=== PATIENT | female | born 1935 | race Caucasian/White ===

== ENCOUNTER 2019-10-21 11:16 | Emergency (ER) | payer MEDICARE, SELFPAY ==
--- NOTE | ~2019-10-21 | CT_ITS ---
EXAMINATION: CTA chest abdomen pelvis EXAM DATE: 10/21/2019 14:34 INDICATION: Thoracolumbar pain. TECHNIQUE: Spiral CT angiogram of the chest, abdomen and pelvis was performed following intravenous i njection of 100 mL Omnipaque 350. Axial, coronal and sagittal images were reviewed. Maximum intensit y projection 3-D reconstructions of the aorta were created by the technologist on dedicated workstati on. Coronal maximum intensity pixel images of chest reviewed. The dose-length product (DLP) for thi s examination was 677.13 mGy-cm. The exposure was tailored according to patient size (auto mA exposu re control), and iterative reconstruction (ASIR) was used as additional dose reduction technique. Th ere is no prior study for comparison. FINDINGS: CHEST: There is no aortic dissection or aneurysm. There is mild to moderate abdominal aortic scattere d arterial sclerosis. No central pulmonary emboli. Mild emphysema. The lungs are clear. There is mi ld to moderate-sized pericardial effusion, increased in size compared to previous examination, fluid all located posteriorly. Tracheobronchial tree is patent. There is no mediastinal, hilar or axilla ry lymphadenopathy. There is no pneumothorax. Mild cardiomegaly. No evidence of coronary arteria l calcification. ABDOMEN PELVIS: There is hepatic steatosis without suspicious focal lesion identified. Spleen, adrena l glands, pancreas are unremarkable. There are cholecystectomy clips. Portal and splenic veins are patent. Kidneys enhance symmetrically. There is no hydronephrosis. There is a left renal cyst measu ring about 3 cm. The uterus is not identified and has likely been surgically resected. The bladder is unremarkable. There is no retroperitoneal or pelvic lymphadenopathy. The appendix is normal. There is small sliding gastroesophageal hiatal hernia. Extensive sigmoid pr edominant diverticulosis with mild adjacent inflammation, could be acute uncomplicated diverticulitis or less likely inflammatory cancer. No free intraperitoneal gas. There are no osteoblastic or os teolytic lesions identified. IMPRESSION: 1. Sigmoid diverticulosis with mild adjacent inflammation probably acute uncomplicated diverticuliti s or less likely inflammatory cancer. 2. No aortic dissection or aneurysm. 3. Mild to moderate-sized pericardial effusion. 4. Mild cardiomegaly. 5. Hepatic steatosis. Reviewed, dictated and finalized at location A. ER OPERATOR IMPRESSION: 1. Sigmoid diverticulosis with mild adjacent inflammation probably acute uncom plicated diverticulitis or less likely inflammatory cancer. 2. No aortic dissection or aneurysm. 3. Mild to moderate-sized pericardial effusion. 4. Mild cardiomegaly. 5. Hepatic steatosis.
--- NOTE | ~2019-10-21 | XR_ITS ---
XR chest 2V DATE: 10/21/2019 12:30 INDICATION: Chest pain TECHNIQUE: PA and lateral views COMPARISON: 04/15/2016 AP chest FINDINGS: Cardiomegaly. Mild aortic calcification and tortuosity. No hilar or mediastinal enlargement . No pulmonary infiltrate or consolidation, pleural effusion or pulmonary vascular congestion or pneu mothorax is detected. Degenerative changes of the thoracic and lumbar spine. Diffuse osteopenia. 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 Probable left rotator cuff atrophy. Status post cholecystectomy. IMPRESSION: Cardiomegaly, aortic atherosclerosis No active pulmonary disease Reviewed, dictated and finalized at location B. RITY SYSTEM ADMINISTRATOR
[2019-10-21 11:25] VITALS: BP 157/82; PULSE 90; RESP 16; TEMP 37.1; O2SAT 97
[2019-10-21] MEDS: DIAZEPAM 5 MG TABLET 2.5 MG PO (12:19)
[2019-10-21] MEDS: KETOROLAC (*BKC) 60 MG/2 ML VIAL 15 MG IM (12:20)
[2019-10-21 12:22] LABS: Basophils Absolute Auto 0.1 K/mm3 (0.0-0.1); Eosinophils Absolute Auto 0.3 K/mm3 (0-0.3); Eosinophils Percent Auto 2.6 % (0-4.4); Hemoglobin 14.8 g/dL (12.0-15.0); Immature Granulocyte Absolute 0.11 K/mm3 (0.00-0.031); Immature Granulocyte Percent A 1.1 % (0-0.5); Lymphocytes Absolute Auto 2.92 K/mm3 (0.9-3.2); Lymphocytes Percent Auto 29.9 % (18.3-44.2); Mean Corpuscular HGB Conc 32.9 g/dl (32-36); Mean Corpuscular Hemoglobin 27.7 pg (26-34); Mean Corpuscular Volume 84.3 fl (80-100); Mean Platelet Volume 10.2 fl (7.4-10.4); Monocytes Absolute Auto 0.9 K/mm3 (0.1-0.6); Monocytes Percent Auto 8.7 % (2.6-8.5); Neutrophils Absolute Auto 5.5 K/mm3 (1.3-6.7); Neutrophils Percent Auto 56.7 % (45.5-73.1); Platelet Count Result 249 k/mm3 (150-375); Red Blood Count 5.34 M/mm3 (4.2-5.4); Red Cell Distribution Width 12.7 % (11.5-14.5); White Blood Count 9.8 K/mm3 (4.5-10.0)
[2019-10-21 12:37] LABS: Blood Urea Nitrogen 15 mg/dL (7-17); Calcium 9.2 mg/dL (8.4-10.2); Carbon Dioxide 21 mmol/L (22-30); Chloride 103 mmol/L (98-107); Estimated Glomerular Filt Rate > 60; Glucose 93 mg/dL (65-105); Sodium 137 mmol/L (137-145)
--- NOTE | 2019-10-21 13:23 | ED.BACK ---
HPI - Back Pain/Injury General Chief Complaint: Back Pain/Injury Stated Complaint: Back pain Time Seen by Provider: 10/21/19 11:57 Source: patient Mode of arrival: ambulatory Limitations: no limitations History of Present Illness HPI Narrative: Patient is an 84-year-old female who presents with right CVA back pain noted as a spasming pain that is been worse for the last week denies injury or trauma notes she has had numerous similar occurrences in the past. Patient notes spasming has tried [id number] medications with minimal improvement patient notes she has had similar occurrences over the years. Patient denies radiation of pain or other complaints presents with family in no distress denies any other recent illness or complaints Related Data Allergies Allergy/AdvReac Type Severity Reaction Status Date / Time metoprolol Allergy Unknown Unknown Verified 10/21/19 12:33 Review of Systems Review of Systems: Narrative: CONSTITUTIONAL: Denies fever, chills, or sweats. EYES: Denies redness, or discharge. ENT: Denies rhinorrhea, congestion, sore throat, or otalgia. CARDIOVASCULAR: Denies chest pain, palpitations, or edema. RESPIRATORY: Denies cough or dyspnea. GASTROINTESTINAL: Denies abdominal pain, nausea, vomiting, or diarrhea. GENITOURINARY: Denies dysuria or hematuria. SKIN: Denies rash or itching. MUSCULOSKELETAL: Denies joint pain NEUROLOGIC: Denies headache, numbness, dizziness, or weakness. [facility] Family History Family History (Updated 12/22/16 @ 23:56 by DOCTOR UNKNOWN) Father Family history of premature coronary heart disease, Onset Age: 62 Patient's father is Mother Patient's mother is Other Cerebrovascular accident Diabetes mellitus Family history of arthritis Family history of gout Family history of heart disease in male family member before age 55 Family history of malignant neoplasm Hypertension Social History Social History Smoking status: Never smoker Smoking end date: 09/17/88 Alcohol intake: current Exam Narrative: Exam Narrative: GENERAL: Well-appearing, well-nourished, and in no acute distress. HEAD: Normocephalic, atraumatic. EYES: PERRLA and EOMI. ENT: Nares clear, no rhinorrhea or epistaxis. Mucous membranes moist. CHEST: Clear to auscultation. No respiratory distress. No wheezes rales or rhonchi HEART: Regular rate and rhythm. No murmur heard. Normal peripheral pulses. ABDOMEN: Soft, nontender, nondistended EXTREMITIES: Normal range of motion. No edema. Tenderness over the right CVA paraspinal musculature no deformities or other tenderness of the back noted SKIN: Warm, dry, no rash. NEURO: No focal deficits. Alert and oriented x3. Cranial nerves II through XII grossly intact. PSYCH: Normal mood and affect. Course Course Emergency Course: Patient in the room in no distress aware of case findings treatment plan and diagnosis Vital Signs Vital signs: Vital Signs Temperature 98.7 F 10/21/19 11:25 Pulse Rate 90 10/21/19 11:25 Respiratory Rate 16 10/21/19 11:25 Blood Pressure 157/82 H 10/21/19 11:25 Pulse Oximetry 97 10/21/19 11:25 Temperature 98.7 F 10/21/19 11:25 Pulse Rate 90 10/21/19 11:25 Respiratory Rate 16 10/21/19 11:25 Blood Pressure 157/82 H 10/21/19 11:25 Pulse Oximetry 97 10/21/19 11:25 MDM - Back Pain/Injury MDM Narrative Medical decision making narrative: Patients pain is positional in nature and localized to back without signs of cord compression or cauda equina based on neurological exam, skeletal exam and history. No fever or other significant factors to suggest osteomyelitis or spinal epidural abscess. Patient denies any abdominal pain. No pulsatile masses noted on exam. Patient ambulates with steady gait and is stable for outpatient management given case findings. Lab Data Result diagrams: 10/21/19 1
[2019-10-21 13:35] LABS: Add Urine Microscopic? YES; Appearance Urine Cloudy (Clear); Bacteria Urine Trace /hpf; Bilirubin Urine Negative (Negative); Blood Urine 1+ (Negative); Color Urine Yellow (Yellow); Glucose Urine UA Negative (Negative); Ketones Urine Negative (Negative); Leukocyte Esterase Ur 3+ LEU/UL (Negative); Mucus Urine Moderate /lpf; Nitrate Urine Negative (Negative); Protein Urine Negative (Negative); Specific Grav Ur 1.013 (1.001-1.035); Squamous Epithelial Cell Urine Many /hpf (Few); Urobilinogen Urine Negative mg/dL (<2.0); WBC Urine 31-50 /hpf
[2019-10-21 14:44] LABS: INR 1.1; Prothrombin Time 13.6 Seconds (11.1-14.7)
[2019-10-21 14:45] LABS: Partial Thromboplastin Time 27.3 SECONDS (22.3-36.8)
[2019-10-21] MEDS: SODIUM CHLORIDE 0.9% IV 500 ML 999 ML IV CONT (14:50)
[2019-10-21 15:40] VITALS: BP 131/61; PULSE 67; RESP 16; O2SAT 99
== END 2019-10-21 15:40 | disposition home or self-care (01) ==
PROVIDERS: Emergency Medicine Emergency Medical Services; Emergency Provider Emergency Medicine; PCP Family Medicine
DX: K57.92 Diverticulitis of intestine, part unspecified, without perforation or abscess without bleeding (principal); M54.5 Low back pain; I70.0 Atherosclerosis of aorta; K76.0 Fatty (change of) liver, not elsewhere classified; I51.7 Cardiomegaly; R82.998 Other abnormal findings in urine
CPT/HCPCS: 36415; 71046; 71275; 74174; 80048; 81001; 85025; 85610; 85730; 87086; 87088; 96365; 96372; 99284; A9270; J0131; J1885; J7030; Q9967

== ENCOUNTER 2020-03-07 12:24 | Emergency (ER) | payer MEDICARE, SELFPAY ==
[2020-03-07] VITALS (14 sets, daily range): BP systolic 133–168; BP diastolic 44–106; PULSE 64–87; RESP 14–25; TEMP 37.2; O2SAT 98
--- NOTE | ~2020-03-07 | XR_ITS ---
XR chest 2V 03/07/2020 13:08 Indication: Chest weakness Procedure: 2 view chest Comparison: Comparison to multiple prior studies sequentially, with oldest reviewed study dated 03/29. Findings: Cardiomegaly. No focal air space disease, pulmonary edema, pleural effusion or suspected pn eumothorax. There are degenerative changes of the shoulders. Impression: 1: No acute cardiopulmonary disease. Reviewed, dictated and finalized at location A. Impression: 1: No acute cardiopulmonary disease.
--- NOTE | ~2020-03-07 | CT_ITS ---
EXAMINATION: CT brain wo con DATE: 03/07/2020 14:06 INDICATION: Dizziness and lightheadedness. TECHNIQUE: Computed tomography (CT) of the head was performed without intravenous contrast. The dose- length product was 605.33 mGy-cm. Automated exposure control and iterative reconstruction technique w ere employed. COMPARISON: CT dated 02/24/2018 FINDINGS: Generalized atrophy. There are scattered mild periventricular and subcortical white matter changes, most likely related to small vessel ischemic disease (microangiopathy). Prominent hypodensit y right basal ganglia, likely prominent perivascular space or choroidal fissure cyst. There is intrac ranial atherosclerosis. No acute intracranial hemorrhage, infarction, mass or mass effect. Paranasal sinuses and mastoids are pneumatized. No depressed skull fractures. IMPRESSION: 1. No acute intracranial abnormality. 2: Chronic age-related findings. Reviewed, dictated and finalized at location A.
--- NOTE | 2020-03-07 12:36 | ECG_ITS ---
Measurements Intervals [place]comb Rate: 77 P: 60 OK: 147 QRS: 73 QRSD: 86 T: 49 QT: 340 QTc: 386 Interpretive Statements SINUS RHYTHM BASELINE ARTIFACT- I, II, III, AVR, AVL, AVF, V1-V6 NORMAL ECG Electronically Signed On 03-07-2020 14:52:40 CDT by Bg Watts D.O.
[2020-03-07 14:00] LABS: Basophils Absolute Auto 0.1 K/mm3 (0.0-0.1); Basophils Percent Auto 0.8 % (0.2-1.2); Eosinophils Absolute Auto 0.1 K/mm3 (0-0.3); Eosinophils Percent Auto 1.3 % (0-4.4); Hematocrit 43.8 % (37.0-47.0); Hemoglobin 14.4 g/dL (12.0-15.0); Immature Granulocyte Absolute 0.05 K/mm3 (0.00-0.031); Immature Granulocyte Percent A 0.5 % (0-0.5); Lymphocytes Absolute Auto 2.49 K/mm3 (0.9-3.2); Lymphocytes Percent Auto 27.1 % (18.3-44.2); Mean Corpuscular HGB Conc 32.9 g/dl (32-36); Mean Platelet Volume 10.9 fl (7.4-10.4); Monocytes Absolute Auto 0.7 K/mm3 (0.1-0.6); Monocytes Percent Auto 7.6 % (2.6-8.5); Neutrophils Absolute Auto 5.8 K/mm3 (1.3-6.7); Neutrophils Percent Auto 62.7 % (45.5-73.1); Platelet Count Result 210 k/mm3 (150-375); Red Blood Count 5.15 M/mm3 (4.2-5.4); Red Cell Distribution Width 12.8 % (11.5-14.5); White Blood Count 9.2 K/mm3 (4.5-10.0)
[2020-03-07 14:13] LABS: Alanine Aminotransferase 20 U/L (4-35); Alkaline Phosphatase 99 U/L (38-126); Aspartate Amino Transferase 25 U/L (14-36); Bilirubin,Total 0.6 mg/dL (0.2-1.3); Blood Urea Nitrogen 14 mg/dL (7-17); Carbon Dioxide 22 mmol/L (22-30); Chloride 109 mmol/L (98-107); Estimated CRCL calculation 43 ml/min; Estimated Glomerular Filt Rate > 60; Glucose 93 mg/dL (65-105); Potassium 4.1 mmol/L (3.4-5.0); Sodium 140 mmol/L (137-145)
[2020-03-07 14:38] LABS: Add Urine Microscopic? YES; Appearance Urine Clear (Clear); Bilirubin Urine Negative (Negative); Blood Urine 1+ (Negative); Color Urine Yellow (Yellow); Glucose Urine UA Negative (Negative); Ketones Urine Negative (Negative); Leukocyte Esterase Ur 1+ LEU/UL (Negative); Mucus Urine Rare /lpf; Nitrate Urine Negative (Negative); Protein Urine Negative (Negative); Specific Grav Ur 1.014 (1.001-1.035); Squamous Epithelial Cell Urine Rare /hpf (Few); Urobilinogen Urine Negative mg/dL (<2.0)
--- NOTE | 2020-03-07 14:55 | ED.WEAKNESS ---
HPI - Weakness General Chief complaint: Weakness Stated complaint: weak and dizzy Time Seen by Provider: 03/07/20 13:21 Source: patient Mode of arrival: EMS Limitations: no limitations History of Present Illness HPI Narrative: Patient presents to the emergency department for an episode of lightheadedness today. Reports she was walking from one chair to another and suddenly felt lightheaded. Reports she sat down and this resolved. Also reports she has some right sided mid back pain. Reports this has been present for the last 10 years. No new injuries or trauma. Denies fever, chest pain, palpitations, shortness of breath, abdominal pain, weakness, numbness, vomiting, or dysuria. Related Data Allergies Allergy/AdvReac Type Severity Reaction Status Date / Time metoprolol Allergy Unknown Unknown Verified 03/07/20 12:26 Review of Systems Review of Systems: Narrative: CONSTITUTIONAL: Denies fever EYES: Denies visual changes CARDIOVASCULAR: Denies chest pain, palpitations RESPIRATORY: Denies dyspnea. GASTROINTESTINAL: Denies vomiting GENITOURINARY: Denies dysuria or hematuria. MUSCULOSKELETAL: Reports back pain, joint pain, and myalgia. NEUROLOGIC: Denies numbness, or weakness. All systems reviewed & are unremarkable except as noted in HPI and below PMFSH Past Medical History Medical History (Updated 03/07/20 @ 15:01 by Elidia Price PA-C) History of gastroesophageal reflux (GERD) History of hypertension Surgical History Surgical History (Updated 03/07/20 @ 14:58 by Elidia Price PA-C) History of cholecystectomy History of hysterectomy Family History Family History (Updated 12/22/16 @ 23:56 by DOCTOR UNKNOWN) Father Family history of premature coronary heart disease, Onset Age: 62 Patient's father is Mother Patient's mother is Other Cerebrovascular accident Diabetes mellitus Family history of arthritis Family history of gout Family history of heart disease in male family member before age 55 Family history of malignant neoplasm Hypertension Social History Social History Smoking status: Never smoker Smoking end date: 09/17/88 Alcohol intake: current Gender identity (if verbalized by the patient): Female Exam Narrative: Exam Narrative: GENERAL: Elderly, well-nourished, and in no acute distress. HEAD: Normocephalic, atraumatic. EYES: PERRLA and EOMI. ENT: Nares clear, no rhinorrhea or epistaxis. Mucous membranes moist. Oropharynx without tonsillar hypertrophy exudate or other lesions. Bilateral TMs pearly emmanuel non-bulging NECK: Supple. No adenopathy or masses. CHEST: Clear to auscultation. No respiratory distress. No wheezes rales or rhonchi HEART: Regular rate and rhythm. No murmur heard. Normal peripheral pulses. ABDOMEN: Soft, nontender, nondistended, normal active bowel sounds. BACK: No midline spinal tenderness. Tender palpation of the right paraspinal thoracic musculature EXTREMITIES: Normal range of motion. No edema. Strength equal in bilateral upper and lower extremities SKIN: Warm, dry, no rash. NEURO: No focal deficits. Alert and oriented x3. Cranial nerves II through XII grossly intact PSYCH: Normal mood and affect Course Vital Signs Vital signs: Vital Signs Temperature 98.9 F 03/07/20 12:27 Pulse Rate 77 03/07/20 12:27 Respiratory Rate 18 03/07/20 12:27 Blood Pressure 151/70 H 03/07/20 12:27 Pulse Oximetry 98 03/07/20 12:27 Temperature 98.9 F 03/07/20 12:27 Pulse Rate 87 03/07/20 14:24 Respiratory Rate 21 H 03/07/20 13:15 Blood Pressure 159/106 H 03/07/20 14:24 Pulse Oximetry 98 03/07/20 12:27 MDM - Weakness MDM Narrative Medical decision making narrative: Patient presents the emergency department for an episode of lightheadedness today. She is afebrile and nontoxic-appearing. Vitals are stable. She is not orthostatic. CBC
== END 2020-03-07 15:12 | disposition home or self-care (01) ==
PROVIDERS: Emergency Provider Emergency Medicine; PCP Family Medicine
DX: R42 Dizziness and giddiness (principal); K21.9 Gastro-esophageal reflux disease without esophagitis; I10 Essential (primary) hypertension; R82.998 Other abnormal findings in urine
CPT/HCPCS: 36415; 70450; 71046; 80053; 81001; 85025; 87086; 87088; 93005; 99284

== ENCOUNTER 2020-04-03 12:19 | Inpatient (IN) | payer MEDICARE, SELFPAY ==
--- NOTE | ~2020-04-03 | CT_ITS ---
EXAMINATION: CT abdomen pelvis w con INDICATION: Lower abdominal pain, history of diverticulitis TECHNIQUE: Computed tomographic images of the abdomen and pelvis were obtained after the administrati on of 100 cc of Omnipaque 350 intravenous contrast. The dose-length product (DLP) was 431.97 mGy-cm. Automated exposure control and iterative reconstruction technique were employed. COMPARISON: 10/21/2019 FINDINGS: The lung bases are clear. The heart size is normal. There is an unchanged mild to moderate sized pericardial effusion. A small hiatal hernia is noted. The liver is diffusely low in attenuation when compared with the spleen, consistent with hepatic steatosis. The gallbladder is surgically abse nt. The spleen, pancreas, and adrenal glands are normal. The right kidney is unremarkable. Cysts of t he left kidney measure up to 3.2 cm. There is calcified atherosclerosis of the aorta and many of the other arteries. The appendix is normal. No pathologically enlarged abdominal or pelvic lymph nodes ar e identified. Colonic diverticulosis is noted. There is wall thickening involving an approximately 10 cm segment of the sigmoid colon, the same segment affected on the comparison examination. There are several intramural fluid collections in the wall of the sigmoid colon which measure up to 2.9 x 0.9 c m. There is fat stranding surrounding the sigmoid colon. No free intraperitoneal gas is identified. T here are no dilated loops of bowel. There is moderate lumbar spondylosis. IMPRESSION: 1. Sigmoid diverticulitis with apparent intramural abscesses and the affected segment. Reviewed, dictated and finalized at location A. IMPRESSION: 1. Sigmoid diverticulitis with apparent intramural abscesses and the affected s egment.
--- NOTE | ~2020-04-03 | MR_ITS ---
EXAMINATION: MR brain/brain stem wo con EXAM DATE: 04/05/2020 15:43 INDICATION: Altered mental status. TECHNIQUE: Magnetic resonance imaging (MRI) of the brain/brain stem obtained without contrast. Riya ferris T1, axial diffusion, gradient echo (T2*), T1, T2, FLAIR sequences obtained. Correlation is made t o head CT 03/07/2020. FINDINGS: There is mild cerebral atrophy. 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 There are no areas of restricted diffusion to suggest acute infarction. Ther e is no acute hemorrhage seen on the T2*, a hemosiderin sensitive sequence. No intraparenchymal brai n mass. The ventricles are normal in size. There are no extra-axial collections. Flow voids are see n in the cerebral arteries on the T2-weighted sequences consistent with their expected patency. The orbits are unremarkable. Soft tissue is unremarkable. IMPRESSION: No acute intracranial findings. Reviewed, dictated and finalized at location A.
--- NOTE | 2020-04-03 12:25 | ED.GENADULT ---
HPI - General Adult General Chief complaint: Abdominal Pain Stated complaint: abd pain Time Seen by Provider: 04/03/20 12:24 Source: patient Mode of arrival: ambulatory Limitations: no limitations History of Present Illness HPI narrative: Patient is an 84-year-old female who presents for evaluation of abdominal pain. Pain is in the lower abdomen, described as cramping, intermittently sharp in nature. No associated fever, nausea or vomiting. Patient reports history of diverticulitis flare several years ago, and reports similar pain as to that. 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 Patient reports mild abdominal distention. No diarrhea or constipation. No blood present in her stool. Related Data Allergies Allergy/AdvReac Type Severity Reaction Status Date / Time metoprolol Allergy Unknown Dizziness Verified 04/03/20 14:13 Review of Systems Review of Systems: Narrative: CONSTITUTIONAL: Denies fever CARDIOVASCULAR: Denies chest pain RESPIRATORY: Denies cough or dyspnea. GASTROINTESTINAL: Reports lower abdominal pain SKIN: Denies rash MUSCULOSKELETAL: Denies back pain NEUROLOGIC: Denies headache [facility] Past Medical History Medical History History of gastroesophageal reflux (GERD) History of hypertension Surgical History Surgical History History of cholecystectomy History of hysterectomy Family History Family History (Updated 12/22/16 @ 23:56 by DOCTOR UNKNOWN) Father Family history of premature coronary heart disease, Onset Age: 62 Patient's father is Mother Patient's mother is Other Cerebrovascular accident Diabetes mellitus Family history of arthritis Family history of gout Family history of heart disease in male family member before age 55 Family history of malignant neoplasm Hypertension Social History Social History Smoking status: Never smoker Smoking end date: 09/17/88 Alcohol intake: current Gender identity (if verbalized by the patient): Female Exam Narrative: Exam Narrative: GENERAL: Awake, alert, conversant HEAD: Normocephalic, atraumatic. EYES: PERRLA and EOMI. ENT: Nares clear, no rhinorrhea or epistaxis. Mucous membranes moist. NECK: Supple. CHEST: No respiratory distress, breathing even and non labored HEART: Regular rate, sinus rhythm ABDOMEN: Mild distention, tender to palpation in left lower quadrant, suprapubic area, no flank tenderness EXTREMITIES: Normal range of motion. No edema. SKIN: Warm, dry, no rash. NEURO:No focal deficits. Alert and oriented x3 Course Vital Signs Vital signs: Vital Signs Temperature 37.2 C 04/03/20 12:35 Pulse Rate 78 04/03/20 12:35 Respiratory Rate 23 H 04/03/20 12:35 Blood Pressure 143/71 H 04/03/20 12:35 Pulse Oximetry 96 04/03/20 12:35 Temperature 36.6 C 04/03/20 14:03 Pulse Rate 65 04/03/20 14:03 Respiratory Rate 19 04/03/20 14:03 Blood Pressure 137/60 04/03/20 14:03 Pulse Oximetry 97 04/03/20 14:03 Medical Decision Making MDM Narrative Medical decision making narrative: Patient presenting for evaluation of abdominal pain. The time of initial assessment, ABCs are intact and vital signs are stable. Physical exam is notable for mild left lower quadrant tenderness and some suprapubic tenderness. Laboratory results are reassuring. CT scan shows diverticulitis with evidence of intramural abscess. No perforation. Patient will be given IV Dr. Andrew Desai to admit the patient. Family were updated, she was admitted in stable condition. Patient will be kept n.p.o. aside from ice chips placed on maintenance fluids with IV pain medications. Of note, patient refused to obtain a urinalysis in the ER, also refused straight catheterization
[2020-04-03 12:35] VITALS: BP 143/71; PULSE 78; RESP 23; TEMP 37.2; O2SAT 96
[2020-04-03 12:42] LABS: Basophils Absolute Auto 0.1 K/mm3 (0.0-0.1); Basophils Percent Auto 0.8 % (0.2-1.2); Eosinophils Absolute Auto 0.1 K/mm3 (0-0.3); Hematocrit 42.4 % (37.0-47.0); Hemoglobin 14.2 g/dL (12.0-15.0); Lymphocytes Absolute Auto 2.72 K/mm3 (0.9-3.2); Lymphocytes Percent Auto 26.4 % (18.3-44.2); Mean Corpuscular HGB Conc 33.5 g/dl (32-36); Mean Corpuscular Hemoglobin 27.7 pg (26-34); Mean Corpuscular Volume 82.7 fl (80-100); Mean Platelet Volume 10.3 fl (7.4-10.4); Monocytes Absolute Auto 1.1 K/mm3 (0.1-0.6); Monocytes Percent Auto 10.8 % (2.6-8.5); Neutrophils Absolute Auto 6.2 K/mm3 (1.3-6.7); Platelet Count Result 258 k/mm3 (150-375); Red Blood Count 5.13 M/mm3 (4.2-5.4); Red Cell Distribution Width 12.2 % (11.5-14.5); White Blood Count 10.3 K/mm3 (4.5-10.0)
[2020-04-03] MEDS: ONDANSETRON INJ 4 MG/2 ML VIAL IV PUSH (12:54)
[2020-04-03] MEDS: MORPHINE SULFATE 4 MG/ML INJ IV PUSH (12:54)
[2020-04-03 12:55] LABS: Alanine Aminotransferase 16 U/L (4-35); Albumin Level 4.1 g/dL (3.5-5.1); Alkaline Phosphatase 105 U/L (38-126); Aspartate Amino Transferase 22 U/L (14-36); Bilirubin,Total 1.3 mg/dL (0.2-1.3); Blood Urea Nitrogen 12 mg/dL (7-17); Calcium 9.1 mg/dL (8.4-10.2); Carbon Dioxide 23 mmol/L (22-30); Chloride 103 mmol/L (98-107); Estimated CRCL calculation 48 ml/min; Estimated Glomerular Filt Rate > 60; Glucose 102 mg/dL (65-105); Lipase 40 U/L (23-300); Potassium 3.7 mmol/L (3.4-5.0); Sodium 138 mmol/L (137-145)
[2020-04-03 12:57] VITALS: BP 143/66; PULSE 72; RESP 16; O2SAT 97
[2020-04-03] MEDS: SODIUM CHLORIDE 0.9% IV 1,000 ML 999 ML IV CONT (13:29)
[2020-04-03 14:03] VITALS: BP 137/60; PULSE 65; RESP 19; TEMP 36.6; O2SAT 97
--- NOTE | 2020-04-03 14:14 | PC.NURSE ---
Patient is refusing to provide urine at this time. She also refuses straight catheter. EDP aware and is ok with not having sample.
--- NOTE | 2020-04-03 16:45 | PC.NURSE ---
patient was taken to floor at 1645 via stretcher by tech
--- NOTE | 2020-04-03 17:02 | PC.NURSE ---
This patient, Pari Perry, was admitted to Medical Room 340-01. Patient/family oriented to hospital policies and general routines including ID bracelet, bed and alarms, visiting hours, pain management, procedures, bathroom and other care routines, personal items, smoking policy, room service/diet, and visiting hours. Valuables list has been completed. Information on how to activate the Rapid Response Team has been discussed. Patient/Family are encouraged to report perceived risks to care and to ask questions if they do not understand what they are told or what they should do.
[2020-04-03 17:22] VITALS: BMI 26.4
[2020-04-03 17:59] VITALS: BP 132/66; PULSE 74; RESP 14; TEMP 37.1; O2SAT 94
[2020-04-03] MEDS: SODIUM CHLORIDE 0.9% IV 1,000 ML 125 ML IV CONT (18:06)
[2020-04-03 20:31] VITALS: BP 110/56; PULSE 70; RESP 14; TEMP 36.6; O2SAT 94
[2020-04-04] MEDS: SODIUM CHLORIDE 0.9% IV 1,000 ML 125 ML IV CONT ×2 (02:14→12:17)
[2020-04-04 06:00] VITALS: BP 114/62; PULSE 60; RESP 14; TEMP 36.3; O2SAT 97
--- NOTE | 2020-04-04 06:11 | PC.NURSE ---
pt had periods of confusion and asked the same question repeatedly throughout shift. pt became very emotional. pt stated she was in pain and I offered her IV tylenol and morphine but she refused. will continue to monitor and offer pain management.
[2020-04-04 07:33] LABS: Basophils Absolute Auto 0.1 K/mm3 (0.0-0.1); Basophils Percent Auto 0.7 % (0.2-1.2); Eosinophils Absolute Auto 0.1 K/mm3 (0-0.3); Eosinophils Percent Auto 1.7 % (0-4.4); Hematocrit 42.6 % (37.0-47.0); Hemoglobin 13.7 g/dL (12.0-15.0); Immature Granulocyte Absolute 0.08 K/mm3 (0.00-0.031); Immature Platelet Fraction Pct 2.6 % (0.9-11.2); Lymphocytes Absolute Auto 1.85 K/mm3 (0.9-3.2); Lymphocytes Percent Auto 22.8 % (18.3-44.2); Mean Corpuscular HGB Conc 32.2 g/dl (32-36); Mean Corpuscular Hemoglobin 28.2 pg (26-34); Mean Corpuscular Volume 87.7 fl (80-100); Mean Platelet Volume 11.4 fl (7.4-10.4); Monocytes Absolute Auto 0.7 K/mm3 (0.1-0.6); Monocytes Percent Auto 8.9 % (2.6-8.5); Neutrophils Absolute Auto 5.3 K/mm3 (1.3-6.7); Neutrophils Percent Auto 64.9 % (45.5-73.1); Platelet Count Result 198 k/mm3 (150-375); Red Blood Count 4.86 M/mm3 (4.2-5.4); Red Cell Distribution Width 12.5 % (11.5-14.5); White Blood Count 8.1 K/mm3 (4.5-10.0)
[2020-04-04 07:37] LABS: Blood Urea Nitrogen 10 mg/dL (7-17); Carbon Dioxide 20 mmol/L (22-30); Chloride 109 mmol/L (98-107); Estimated CRCL calculation 47 ml/min; Estimated Glomerular Filt Rate > 60; Glucose 90 mg/dL (65-105); Sodium 137 mmol/L (137-145)
[2020-04-04 08:00] VITALS: PULSE 60; RESP 14; O2SAT 97
[2020-04-04] MEDS: ENOXAPARIN 40 MG/0.4 ML SYRINGE SUB-Q (09:44)
[2020-04-04] MEDS: IBUPROFEN IV 800 MG/200 ML 800 MG/200 ML BAG 400 MG IVPB (10:31)
--- NOTE | 2020-04-04 11:45 | PM.IMHP ---
H&P: HPI History of Present Illness Chief complaint: diverticulitis with abscess Narrative: Pari Perry is a 84 year old female who came to the emergency room yesterday with suprapubic and left lower quadrant abdominal pain that started 2 days ago on SundayApril 02. Pain was intermittent, crampy and very sharp. She had no fevers nausea or vomiting. She has had diverticulitis in the past and thought she had a recurrence. She cannot recall when her last colonoscopy was performed. I reviewed her records in [employer] [facility] [employer] [facility] and found no record of a colonoscopy in there at all. The patient did come to our emergency room in October of 2019 with back pain. She was found at that time on CT scan to have acute diverticulitis and was treated with Augmentin as an outpatient. In the emergency room yesterday, the patient was noted to have tenderness in the left lower quadrant and suprapubic area. She was mildly tachycardic but had no fever. Her white count was at the upper limit of normal at 10,300. CT scan showed acute sigmoid diverticulitis with intramural abscesses. The same 10 cm segment of sigmoid colon appeared involved as had been noted on the October 2019 CT scan. The largest intramural fluid collection in the sigmoid colon was 2.9 cm. The patient was admitted, started on bowel rest and IV Zosyn with p.r.n. analgesics. This morning she says she feels better but is certainly not pain free. She is a little forgetful and does not really recall diverticulitis earlier this year. By her recollection her last episode was about 6 years ago although, again in [employer] [facility], there is no record of admission for this. She is admitted now for recurrent sigmoid diverticulitis with abscess. Review of Systems Review of Systems: All systems reviewed & are unremarkable except as noted in HPI and below Constitutional: Constitutional: Denies headache(s) Cardiovascular: Cardiovascular: Denies chest pain and Denies dyspnea Respiratory: Respiratory: Denies cough and Denies dyspnea Gastrointestinal: Gastrointestinal: Denies bloating, Denies constipation and Denies nausea Genitourinary: Genitourinary: Denies hematuria, Denies dysuria and Reports other ( No pneumaturia or fecaluria) Neurologic: Denies confusion and Denies headache(s) [facility] Past Medical History Medical History History of gastroesophageal reflux (GERD) History of hypertension Surgical History Surgical History History of cholecystectomy History of hysterectomy Family History Family History Father Family history of premature coronary heart disease, Onset Age: 62 Patient's father is Mother Patient's mother is Other Cerebrovascular accident Diabetes mellitus Family history of arthritis Family history of gout Family history of heart disease in male family member before age 55 Family history of malignant neoplasm Hypertension Social History Social History Smoking status: Former smoker Smoking end date: 09/17/88 Alcohol intake: never Substance use: never Gender identity (if verbalized by the patient): Female Spiritual care concerns: No Meds Home Medications and Allergies Allergies Allergy/AdvReac Type Severity Reaction Status Date / Time metoprolol Allergy Unknown Dizziness Verified 04/03/20 14:13 Vital Signs Vital Signs - 24 hr 04/03/20 12:35 04/03/20 12:57 04/03/20 14:03 Temperature 37.2 C 36.6 C Pulse Rate 78 72 65 Respiratory Rate 23 H 16 19 Blood Pressure 143/71 H 143/66 H 137/60 Pulse Oximetry 96 97 97 04/03/20 17:59 04/03/20 20:31 04/04/20 06:00 Temperature 37.1 C 36.6 C 36.3 C L Pulse Rate 74 70 60 Respiratory Rate 14 14 14 Blood Pressure 132/66 110/56 L
[2020-04-04] MEDS: FAMOTIDINE 20 MG TABLET PO ×2 (13:49→20:32)
[2020-04-04 14:00] VITALS: BP 103/61; PULSE 65; RESP 16; TEMP 37; O2SAT 95
[2020-04-04] MEDS: ACETAMINOPHEN 500 MG TABLET PO (16:08)
--- NOTE | 2020-04-04 17:29 | PC.NURSE ---
Approximately 1100 had not received famotadine 20 mg, new order today. I notified pharmacy personnel of the same. I was told to pull it from the pyxis. I pulled the medication from the pyxis. When trying to scan the medication in the patient s room , the barcode would not scan. I tried as many ways as possible to scan it and the barcode would not scan. I called pharmacry personnel and told them the same as written. I was told that another one will be sent per the tube system. From the tube system Elizabeth brought me a famotidine vial with the lable saying that the medication is an oral meidication. Nurse Elizabeth called pharmacy for me and told them about the famotadine vial in the bag with shaggy saying it was a tablet. She was told that a correct medication wound be sent and she sent back the famotadine vial. At 1330 I received the correct medication famotadine 20 mg tablet and it was scannable.
[2020-04-04 19:26] VITALS: BP 119/49; PULSE 66; RESP 18; TEMP 36.4; O2SAT 95
[2020-04-04] MEDS: ONDANSETRON INJ 4 MG/2 ML VIAL IV PUSH (23:28)
[2020-04-04] MEDS: SODIUM CHLORIDE 0.9% IV 1,000 ML 80 ML IV CONT (23:29)
[2020-04-05 05:11] VITALS: BP 130/50; PULSE 78; RESP 15; TEMP 36.4; O2SAT 94
[2020-04-05] MEDS: ACETAMINOPHEN 500 MG TABLET PO (05:31)
[2020-04-05] MEDS: ONDANSETRON INJ 4 MG/2 ML VIAL IV PUSH (05:31)
[2020-04-05 06:43] LABS: Hematocrit 41.6 % (37.0-47.0); Hemoglobin 13.2 g/dL (12.0-15.0); Mean Corpuscular HGB Conc 31.7 g/dl (32-36); Mean Corpuscular Hemoglobin 27.5 pg (26-34); Mean Corpuscular Volume 86.7 fl (80-100); Mean Platelet Volume 11.1 fl (7.4-10.4); Platelet Count Result 228 k/mm3 (150-375); Red Cell Distribution Width 12.2 % (11.5-14.5); White Blood Count 9.3 K/mm3 (4.5-10.0)
[2020-04-05 06:54] LABS: Blood Urea Nitrogen 8 mg/dL (7-17); Calcium 8.2 mg/dL (8.4-10.2); Carbon Dioxide 18 mmol/L (22-30); Chloride 107 mmol/L (98-107); Estimated CRCL calculation 47 ml/min; Estimated Glomerular Filt Rate > 60; Glucose 81 mg/dL (65-105); Potassium 3.2 mmol/L (3.4-5.0); Sodium 138 mmol/L (137-145)
[2020-04-05] MEDS: ENOXAPARIN 40 MG/0.4 ML SYRINGE SUB-Q (09:52)
[2020-04-05] MEDS: FAMOTIDINE 20 MG TABLET PO ×2 (09:52→19:57)
--- NOTE | 2020-04-05 11:16 | PM.PNGS ---
Progress Note: A&P Assessment and Plan (1) Diverticulitis of intestine with abscess: Qualifiers: Diverticulitis bleeding: without bleeding Diverticulitis site: large intestine Qualified Code(s): K57.20 - Diverticulitis of large intestine with perforation and abscess without bleeding Code(s): K57.80 - Diverticulitis of intestine, part unspecified, with perforation and abscess without bleeding Status: Acute Assessment and Plan: Improving. Will start clear liquids. (2) Confusion: Code(s): R41.0 - Disorientation, unspecified Status: Acute Assessment and Plan: Probably due to hospitalization and diverticular infection. Dr. Chavez or Edwina to see. Subjective Subjective Date/Time Seen: 04/05/20 11:16 Patient reports: pain is less, no bowel movement and other (Animated, confused, no complaints of abdominal pain) Review of Systems Review of Systems: ROS unobtainable: Yes unobtainable due to medical condition Exam Const: General: comfortable, no acute distress, alert, awake and confusion Nutritional Appearance: overweight Orientation/consciousness: No oriented to place and No oriented to time Limitations: altered mental status GI: Inspection: non-distended and scar GI Palp: Yes Soft to palpation, Yes Tenderness to palpation present (GI) (Much less tender than yesterday), No Guarding due to palpation present (GI) and No Rebound tenderness present Auscultation: Hypoactive bowel sounds present Neuro: General: patient oriented x3, no focal motor deficits and No confusion Extrem: General: no calf tenderness and no edema Objective Data Vital Signs Vital Signs: Vital Signs - 24 hr 04/04/20 14:00 04/04/20 19:26 04/05/20 05:11 Temperature 37.0 C 36.4 C L 36.4 C L Pulse Rate 65 66 78 Respiratory Rate 16 18 15 Blood Pressure 103/61 119/49 L 130/50 L Pulse Oximetry 95 95 94 Intake/Output Intake/Output: Intake & Output 04/02/20 04/03/20 04/04/20 04/05/20 23:59 23:59 23:59 23:59 Intake Total 1200 3500 150 Output Total 200 620 350 Balance 1000 2880 -200 Meds/Results Medications: Active Medications Generic Name Dose Route Start Last Admin Trade Name Freq PRN Reason Stop Dose Admin Acetaminophen 500 mg 04/04/20 08:04 04/05/20 05:31 Tylenol Tablet PO 500 mg Q6H PRN Administration Mild Pain (1-3) or Fever Enoxaparin Sodium 40 mg 04/04/20 09:00 04/05/20 09:52 Lovenox SUB-Q 40 mg DAILY SPEEDY Administration Famotidine 20 mg 04/04/20 09:00 04/05/20 09:52 Pepcid PO 20 mg Q12HR SPEEDY Administration Sodium Chloride 1,000 mls @ 80 mls/hr 04/03/20 15:10 04/05/20 06:23 Normal Saline Iv IV CONT Not Given .[id number] SPEEDY Piperacillin/Tazobactam/Dextrose 3.375 gm in 50 mls @ 100 mls/hr 04/03/20 23:00 04/05/20 06:05 Zosyn 3.375 Gm/D5w 50ml Pm IVPB Infused Q6HR SPEEDY Infusion Ibuprofen 800 mg in 200 mls @ 400 mls/hr 04/04/20 08:04 04/04/20 11:01 Caldolor 800 Mg/200 Ml IVPB Infused Q6H PRN Infusion Pain Rated 4-6 Morphine Sulfate 4 mg 04/03/20 15:07 Morphine Sulfate Inj IV PUSH Q2H PRN Pain Rated 7-10 Ondansetron HCl 4 mg 04/03/20 15:07 04/05/20 05:31 Zofran Inj IV PUSH 4 mg Q4H PRN Administration Nausea Radiology Results: ITS Impressions Abdomen/Pelvis CT 04/03/20 13:24 IMPRESSION: 1. Sigmoid diverticulitis with apparent intramural abscesses and the affected segment. Labs Labs: Laboratory Results - last 24 hr 04/05/20 04/05/20 06:13 06:13 WBC 9.3 RBC 4.80 Hgb 13.2 Hct 41.6 MCV 86.7 MCH 27.5 MCHC 31.7 L RDW 12.2 Plt Count 228 MPV 11.1 H Sodium 138 Potassium 3.2 L Chloride 107 Carbon Dioxide 18 L BUN 8 Creatinine 0.70 Estim Creat Clear Calc 47 Estimated GFR > 60 Glucose 81 Calcium 8.2 L
[2020-04-05 13:34] VITALS: BP 114/56; PULSE 65; RESP 18; TEMP 36.3; O2SAT 98
[2020-04-05] MEDS: SODIUM CHLORIDE 0.9% IV 1,000 ML 80 ML IV CONT (14:03)
--- NOTE | 2020-04-05 16:22 | PCCPR ---
On 04/05/20, the student, Paola Cheatham, provided care and completed [facility] documentation on this patient. I have reviewed the student's documentation and agree with the findings.
--- NOTE | 2020-04-05 16:43 | CONS_ITS ---
DATE OF CONSULTATION: 04/04/2020 HISTORY OF PRESENT ILLNESS: An 84 years old right-handed female has been admitted to the hospital with the chief complaint of diverticulitis with abscess through the emergency room and with suprapubic and left lower quadrant abdominal pain of 48 hours duration since April 02. The patient reported the pain was intermittent, crampy and very sharp without any associated fever or vomiting. She has had diverticulitis in the past and she thought it was recurrence of same problem. She was unable to recall when she had the colonoscopy examination. She had been seen in the emergency room in October of this year as well for the complaint of back pain, but at that time, she was found to have on CT scan, acute diverticulitis and was treated with the Augmentin as an outpatient. In the ER, this time she was noted to have left lower quadrant tenderness and also suprapubic area tenderness. She is mildly tachycardic, but she was not febrile and white blood cells were at the upper limit of normal 10,300. CT scan documented acute sigmoid diverticulitis with intramural abscesses, 10 cm segment of sigmoid colon appeared involved as had been noted in October [address] scan. Largest fluid collection was 2.9 cm. The patient was admitted for the bowel rest, IV Zosyn and analgesics. She was noted to be somewhat forgetful and Neurology consultation has been obtained for the ongoing complaint of the forgetfulness by the family. As mentioned before she has ongoing history of GERD, hypertension, cholecystectomy, hysterectomy, diabetes mellitus, arthritis. She is a former smoker, never drinker. She is allergic to metoprolol. Evaluation up until now documented with a pulse rate of 78, respirations 23, blood pressure 143/71, pulse ox 96%. PHYSICAL EXAMINATION: GENERAL: Revealed her to be awake, alert, cooperative, very chatty and very verbal and articulate. HEENT: Head normocephalic with no cranial bruit. Ear, nose, throat examination normal. NECK: Supple with no cervical bruit. No thyromegaly. No lymphadenopathy. HEART: Regular. LUNGS: Clear. NEUROLOGICAL: She was awake, alert. She knew that she was in the hospital. Her daughter was at the bedside. Even though she was very verbal and very articulate, she had difficulties in recent and remote recall. Pupils round, regular. Haynes of vision full. Extraocular movements full. Face symmetrical. Tongue midline. Motor examination revealed her to have no gross deficit. Reflexes were symmetrical. Plantars were downgoing. There was no evidence of gross cerebellar deficit. LABORATORY STUDIES: Evaluation up until now included normal CBC with WBC 10.3, hemoglobin 14.2, platelet count 258, normal basic metabolic panel, normal hepatic enzyme with albumin of 4.1 in the emergency room. She has had CT scan of the head on March 07, which was completely normal with no evidence of hydrocephalus or space-occupying lesion. I ordered the routine blood studies to check the basic workup for the dementia and I informed the daughter that we will finish the workup here, then I will discuss with her further. In the meantime, obviously, surgical treatment is ongoing. RICA DANIEL M.D. JAILOR JAILOR D [place]: [place]
--- NOTE | 2020-04-05 18:56 | PC.NURSE ---
Yesenia Alcantara RN have reviewed documentation completed by Amanda Marshall RN. Documentation has been completed and is accurate of patient assessment.
[2020-04-05] MEDS: MORPHINE SULFATE 4 MG/ML INJ IV PUSH (19:56)
[2020-04-05 19:58] LABS: T4 Thyroxine 6.28 ug/dL (5.53-11.0)
[2020-04-05 20:17] VITALS: BP 111/57; PULSE 60; RESP 14; TEMP 36.9; O2SAT 96
[2020-04-06 04:25] VITALS: BP 117/46; PULSE 73; RESP 16; TEMP 36.7; O2SAT 95
[2020-04-06] MEDS: SODIUM CHLORIDE 0.9% IV 1,000 ML 80 ML IV CONT ×2 (05:08→18:34)
[2020-04-06] MEDS: MORPHINE SULFATE 4 MG/ML INJ IV PUSH (05:09)
[2020-04-06] MEDS: ONDANSETRON INJ 4 MG/2 ML VIAL IV PUSH (05:09)
[2020-04-06 05:24] LABS: Hematocrit 36.6 % (37.0-47.0); Mean Corpuscular HGB Conc 32.8 g/dl (32-36); Mean Corpuscular Hemoglobin 27.7 pg (26-34); Mean Corpuscular Volume 84.5 fl (80-100); Mean Platelet Volume 10.4 fl (7.4-10.4); Platelet Count Result 246 k/mm3 (150-375); Red Blood Count 4.33 M/mm3 (4.2-5.4); Red Cell Distribution Width 12.3 % (11.5-14.5); White Blood Count 11.3 K/mm3 (4.5-10.0)
[2020-04-06 05:36] LABS: Blood Urea Nitrogen 6 mg/dL (7-17); Calcium 7.9 mg/dL (8.4-10.2); Carbon Dioxide 18 mmol/L (22-30); Chloride 109 mmol/L (98-107); Estimated CRCL calculation 55 ml/min; Estimated Glomerular Filt Rate > 60; Glucose 95 mg/dL (65-105); Potassium 3.2 mmol/L (3.4-5.0); Sodium 136 mmol/L (137-145)
[2020-04-06 08:00] VITALS: PULSE 73; RESP 16; O2SAT 95
[2020-04-06] MEDS: ENOXAPARIN 40 MG/0.4 ML SYRINGE SUB-Q (08:44)
[2020-04-06] MEDS: FAMOTIDINE 20 MG TABLET PO (08:55)
--- NOTE | 2020-04-06 10:18 | PM.PNGS ---
Progress Note: A&P Assessment and Plan (1) Diverticulitis of intestine with abscess: Qualifiers: Diverticulitis bleeding: without bleeding Diverticulitis site: large intestine Qualified Code(s): K57.20 - Diverticulitis of large intestine with perforation and abscess without bleeding Code(s): K57.80 - Diverticulitis of intestine, part unspecified, with perforation and abscess without bleeding Status: Acute Assessment and Plan: Continues to clinically improve. Tolerating clear liquids. Will start advancing her diet to fulls this morning. WBC 11,300, afebrile. Will repeat labs again in the morning. (2) Confusion: Code(s): R41.0 - Disorientation, unspecified Status: Acute Assessment and Plan: Probably due to hospitalization and diverticular infection. Brain MRI and CT negative for acute intracranial findings. Neurology following. Additional Plan Discussed plan of care with Dr. Morales. Potassium slightly low this morning. Will supplement and repeat labs in the am. Advancing diet. Subjective Subjective Date/Time Seen: 04/06/20 10:18 Patient reports: pain is less, tolerating liquids well, flatus and bowel movement (yesterday) Interval history: Patient feeling tired this morning and having generalized weakness that she feels is due to her diet. No nausea, vomiting, or bloating. Reports flatus and BM yesterday that was loose. Denies any abdominal pain at this time. No other complaints this morning. Still seems somewhat confused when questioning her this morning but she is oriented. Review of Systems Review of Systems: All systems reviewed & are unremarkable except as noted in HPI and below Constitutional: Constitutional: Reports no additional constitutional complaints, Denies chills and Denies fever(s) Cardiovascular: Cardiovascular: Reports no additional cardiovascular complaints, Denies chest pain, Denies pedal edema and Denies leg edema Respiratory: Respiratory: Reports no additional respiratory complaints, Denies cough and Denies dyspnea Gastrointestinal: Gastrointestinal: Reports as per HPI and Reports no additional gastrointestinal complaints Exam Const: General: comfortable, no acute distress, alert and awake Orientation/consciousness: patient oriented x3 Resp: Effort & Inspection: normal respiratory effort Auscultation: clear to auscultation bilaterally Cardio: Rate: regular rate Rhythm: regular rhythm GI: Inspection: non-distended GI Palp: Yes Soft to palpation, Yes Tenderness to palpation present (GI) (lower abdominal tenderness, improved per patient), No Guarding due to palpation present (GI) and No Rebound tenderness present Auscultation: normoactive bowel sounds Skin: General skin exam: normal color Neuro: General: patient oriented x3 and no focal motor deficits Cranial nerves: Yes Equal, round and reactive pupils present Speech: normal speech Motor exam (neuro): 5/5 motor strength present throughout Extrem: General: no calf tenderness and no edema Psych: Affect: normal affect Thought process: Normal thought process present Insight: Fair insight present (Psych) Objective Data Vital Signs Vital Signs: Vital Signs - 24 hr 04/05/20 13:34 04/05/20 20:17 04/06/20 04:25 Temperature 97.3 F L 98.4 F 98.0 F Pulse Rate 65 60 73 Respiratory Rate 18 14 16 Blood Pressure 114/56 L 111/57 L 117/46 L Pulse Oximetry 98 96 95 04/06/20 08:00 Temperature Pulse Rate 73 Respiratory Rate 16 Blood Pressure Pulse Oximetry 95 Intake/Output Intake/Output: Intake & Output 04/03/20 04/04/20 04/05/20 04/06/20 23:59 23:59 23:59 23:59 Intake Total 1200 3500 1590 1640 Output Total 200 620 350 Balance 1000 2880 1240 1640 Meds/Results Medications: Active Medications Generic Name Dose Route Start Last Admin Trade Name Freq PRN Reason Stop Dose Admin Acetaminophen 500 mg 04/04/20 08:04 04/05/20 05:31 Tylenol Tablet PO 500 mg Q6H PRN Admini
--- NOTE | 2020-04-06 11:17 | WPDNEUROPN ---
Progress Note: A&P Assessment and Plan (1) Confusion: Code(s): R41.0 - Disorientation, unspecified Status: Acute Additional Plan stable studies being done for dementia Review of Systems Review of Systems: All systems reviewed & are unremarkable except as noted in HPI and below Exam Const: General: no acute distress Eyes: General: appearance normal, both eyes and all related structures Neck: Neck: full ROM Resp: Effort & Inspection: able to speak in complete sentences Auscultation: clear to auscultation bilaterally Cardio: Rate: regular rate Rhythm: regular rhythm GI: Auscultation: normal bowel sounds Skin: General skin exam: no rashes or lesions noted Neuro: General: oriented to person, oriented to place and moves all extremities Cranial nerves: Yes Equal, round and reactive pupils present, Yes Nystagmus not present, Yes Normal facial strength present, Yes Midline tongue present, Yes Normal hearing present and Yes Ability to bilaterally elevate shoulders present Speech: normal speech Motor exam (neuro): 5/5 motor strength present throughout Sensory Exam: normal sensation Extrem: General: normal to inspection Psych: Speech and movement: Normal speech and movement present Affect: normal affect Attitude: cooperative Thought process: Normal thought process present Thought content: Yes Normal thought content present Insight: Fair insight present (Psych) Judgement: Fair judgement present (Psych) Objective Data Vital Signs Vital Signs: Vital Signs - 24 hr 04/05/20 13:34 04/05/20 20:17 04/06/20 04:25 Temperature 36.3 C L 36.9 C 36.7 C Pulse Rate 65 60 73 Respiratory Rate 18 14 16 Blood Pressure 114/56 L 111/57 L 117/46 L Pulse Oximetry 98 96 95 04/06/20 08:00 Temperature Pulse Rate 73 Respiratory Rate 16 Blood Pressure Pulse Oximetry 95 Intake/Output Intake/Output: Intake & Output 04/03/20 04/04/20 04/05/20 04/06/20 23:59 23:59 23:59 23:59 Intake Total 1200 3500 1590 1640 Output Total 200 620 350 Balance 1000 2880 1240 1640 Meds/Results Medications: Active Medications Generic Name Dose Route Start Last Admin Trade Name Freq PRN Reason Stop Dose Admin Acetaminophen 500 mg 04/04/20 08:04 04/05/20 05:31 Tylenol Tablet PO 500 mg Q6H PRN Administration Mild Pain (1-3) or Fever Enoxaparin Sodium 40 mg 04/04/20 09:00 04/06/20 08:44 Lovenox SUB-Q 40 mg DAILY SPEEDY Administration Famotidine 20 mg 04/04/20 09:00 04/06/20 08:55 Pepcid PO 20 mg Q12HR SPEEDY Administration Sodium Chloride 1,000 mls @ 80 mls/hr 04/03/20 15:10 04/06/20 05:08 Normal Saline Iv IV CONT 80 mls/hr .[id number] SPEEDY Administration Piperacillin/Tazobactam/Dextrose 3.375 gm in 50 mls @ 100 mls/hr 04/03/20 23:00 04/06/20 11:01 Zosyn 3.375 Gm/D5w 50ml Pm IVPB 100 mls/hr Q6HR SPEEDY Administration Ibuprofen 800 mg in 200 mls @ 400 mls/hr 04/04/20 08:04 04/04/20 11:01 Caldolor 800 Mg/200 Ml IVPB Infused Q6H PRN Infusion Pain Rated 4-6 Potassium Chloride 500 mls @ 125 mls/hr 04/06/20 10:16 Kcl 40 Meq/D5w 500 Ml Peripheral IVPB 04/06/20 14:15 ONCE ONE Morphine Sulfate 4 mg 04/03/20 15:07 04/06/20 05:09 Morphine Sulfate Inj IV PUSH 4 mg Q2H PRN Administration Pain Rated 7-10 Ondansetron HCl 4 mg 04/03/20 15:07 04/06/20 05:09 Zofran Inj IV PUSH 4 mg Q4H PRN Administration Nausea Radiology Results: ITS Impressions Abdomen/Pelvis CT 04/03/20 13:24 IMPRESSION: 1. Sigmoid diverticulitis with apparent intramural abscesses and the affected segment. Brain MRI 04/05/20 15:59 IMPRESSION: No acute intracranial findings. Labs Labs: Laboratory Results - last 24 hr 04/05/20 04/05/20 04/06/20 18:53 18:53 05:07 WBC 11.3 H RBC 4.33 Hgb 12.0 Hct 36.6 L MCV 84.5 MCH 27.7 MCHC 32.8 RDW 12.3 Plt Count 246 MPV 10.4 Sodium Potassium
--- NOTE | 2020-04-06 11:45 | NEURO_ITS ---
TEST: ELECTROENCEPHALOGRAM DIAGNOSIS: ALTERED MENTAL STATUS PATIENT NUMBER: [id number] EEG NUMBER: [id number] RECORDING DATE: 04/06/20 CONDITION OF RECORDING: Awake and drowsy; eyes fluttering throughout the whole tracing. EEG DESCRIPTION: The whole record consists of diffused low voltage beta activity mixed with multiple movement and muscle artifacts. During drowsiness low voltage beta activity is seen diffusely mixed with waxing and waning posterior alpha rhythms. Hyperventilation and photic stimulation were not done. Nonparoxysmal. Nonfocal. Nonlateralizing. IMPRESSION: No significant abnormalities noted. MTDD
[2020-04-06 14:00] VITALS: BP 134/53; PULSE 70; RESP 19; TEMP 36.3; O2SAT 98
[2020-04-06 19:39] VITALS: BP 113/57; PULSE 74; RESP 18; TEMP 36.2; O2SAT 94
--- NOTE | 2020-04-07 05:04 | PC.NURSE ---
Pt refusing to let me put in a new IV.
[2020-04-07 05:40] LABS: Hematocrit 36.7 % (37.0-47.0); Mean Corpuscular HGB Conc 32.7 g/dl (32-36); Mean Corpuscular Hemoglobin 27.3 pg (26-34); Mean Corpuscular Volume 83.6 fl (80-100); Mean Platelet Volume 10.5 fl (7.4-10.4); Platelet Count Result 287 k/mm3 (150-375); Red Blood Count 4.39 M/mm3 (4.2-5.4); Red Cell Distribution Width 12.3 % (11.5-14.5); White Blood Count 10.1 K/mm3 (4.5-10.0)
[2020-04-07 05:46] LABS: Blood Urea Nitrogen 3 mg/dL (7-17); Calcium 8.1 mg/dL (8.4-10.2); Carbon Dioxide 20 mmol/L (22-30); Chloride 113 mmol/L (98-107); Estimated CRCL calculation 47 ml/min; Estimated Glomerular Filt Rate > 60; Glucose 113 mg/dL (65-105); Potassium 3.4 mmol/L (3.4-5.0); Sodium 139 mmol/L (137-145)
[2020-04-07 06:00] VITALS: BP 142/56; PULSE 75; RESP 20; TEMP 36.9; O2SAT 94
--- NOTE | 2020-04-07 07:04 | PM.PNGS ---
Progress Note: A&P Assessment and Plan (1) Diverticulitis of intestine with abscess: Qualifiers: Diverticulitis bleeding: without bleeding Diverticulitis site: large intestine Qualified Code(s): K57.20 - Diverticulitis of large intestine with perforation and abscess without bleeding Code(s): K57.80 - Diverticulitis of intestine, part unspecified, with perforation and abscess without bleeding Status: Acute Assessment and Plan: having some loose stools. Will start Imodium. Continue IV antibiotics and advance to low fiber diet. Probably home tomorrow. (2) Confusion: Code(s): R41.0 - Disorientation, unspecified Status: Acute Assessment and Plan: Mostly sundowning. Patient has help at home. Probably be able to discharge tomorrow. Neurology seeing. 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 Denies abdominal pain. Review of Systems Review of Systems: All systems reviewed & are unremarkable except as noted in HPI and below Constitutional: Constitutional: Denies headache(s) Cardiovascular: Cardiovascular: Denies chest pain and Denies dyspnea Respiratory: Respiratory: Denies cough and Denies dyspnea Gastrointestinal: Gastrointestinal: Reports as per HPI Exam Const: General: comfortable and no acute distress; No confusion Orientation/consciousness: oriented to person, oriented to place and No confusion GI: GI Palp: Yes Soft to palpation, Yes Tenderness to palpation present (GI), No Guarding due to palpation present (GI) and No Rebound tenderness present Auscultation: normal bowel sounds Neuro: General: oriented to person, oriented to place, no focal motor deficits and No confusion Cranial nerves: Yes CN's II-XII intact bilaterally Speech: normal speech Gait exam (Neuro): Normal gait present Motor exam (neuro): 5/5 motor strength present throughout Extrem: General: no calf tenderness and no edema Psych: Affect: normal affect Attitude: cooperative Thought process: Illogical thought process present Thought content: Yes Normal thought content present Insight: Limited insight present (Psych) Judgement: Limited judgement present (Psych) Objective Data Vital Signs Vital Signs: Vital Signs - 24 hr 04/06/20 08:00 04/06/20 14:00 04/06/20 19:39 Temperature 36.3 C L 36.2 C L Pulse Rate 73 70 74 Respiratory Rate 16 19 18 Blood Pressure 134/53 L 113/57 L Pulse Oximetry 95 98 94 04/07/20 06:00 Temperature 36.9 C Pulse Rate 75 Respiratory Rate 20 Blood Pressure 142/56 H Pulse Oximetry 94 Intake/Output Intake/Output: Intake & Output 04/04/20 04/05/20 04/06/20 04/07/20 23:59 23:59 23:59 23:59 Intake Total 3500 1590 4910 150 Output Total 620 350 600 Balance 2880 1240 4310 150 Meds/Results Medications: Active Medications Generic Name Dose Route Start Last Admin Trade Name Freq PRN Reason Stop Dose Admin Acetaminophen 500 mg 04/04/20 08:04 04/05/20 05:31 Tylenol Tablet PO 500 mg Q6H PRN Administration Mild Pain (1-3) or Fever Enoxaparin Sodium 40 mg 04/04/20 09:00 04/06/20 08:44 Lovenox SUB-Q 40 mg DAILY SPEEDY Administration Famotidine 20 mg 04/04/20 09:00 04/06/20 21:08 Pepcid PO Not Given Q12HR SPEEDY Sodium Chloride 1,000 mls @ 80 mls/hr 04/03/20 15:10 04/07/20 05:04 Normal Saline Iv IV CONT 0 mls/hr .[id number] SPEEDY Infusion Piperacillin/Tazobactam/Dextrose 3.375 gm in 50 mls @ 100 mls/hr 04/03/20 23:00 04/07/20 05:04 Zosyn 3.375 Gm/D5w 50ml Pm IVPB Not Given Q6HR SPEEDY Ibuprofen 800 mg in 200 mls @ 400 mls/hr 04/04/20 08:04 04/04/20 11:01 Caldolor 800 Mg/200 Ml IVPB Infused Q6H PRN Infusion Pain Rated 4-6 Loperamide HCl 2 - 4 mg 04/07/20 07:00 Loperamide Hcl PO Q6H PRN Diarrhea Mo
[2020-04-07 08:00] VITALS: PULSE 80; RESP 20; O2SAT 94
[2020-04-07] MEDS: FAMOTIDINE 20 MG TABLET PO ×2 (08:00→20:40)
[2020-04-07] MEDS: ENOXAPARIN 40 MG/0.4 ML SYRINGE SUB-Q (08:00)
--- NOTE | 2020-04-07 14:08 | PCDIET ---
MD consult received. Low fiber education provided to patient and daughter. See Nutritional Teaching for additional details.
[2020-04-07 20:13] VITALS: BP 146/54; PULSE 72; RESP 16; TEMP 36.8; O2SAT 100
[2020-04-07] MEDS: ACETAMINOPHEN 500 MG TABLET PO (20:17)
[2020-04-07] MEDS: DONEPEZIL HCL 5 MG TABLET PO (20:40)
[2020-04-08 06:00] VITALS: BP 109/74; PULSE 72; RESP 14; TEMP 36.2; O2SAT 97
--- NOTE | 2020-04-08 06:54 | PM.DS ---
DS: Admitting Diagnosis Admitting Diagnosis Admitting Diagnosis: Diverticulitis of large intestine with perforation and abscess without bleeding DS: Discharge Diagnosis Discharge Diagnosis (1) Diverticulitis of intestine with abscess: Qualifiers: Diverticulitis bleeding: without bleeding Diverticulitis site: large intestine Qualified Code(s): K57.20 - Diverticulitis of large intestine with perforation and abscess without bleeding Code(s): K57.80 - Diverticulitis of intestine, part unspecified, with perforation and abscess without bleeding Status: Acute (2) Confusion: Code(s): R41.0 - Disorientation, unspecified Status: Acute DS: Summary Time Spent with Patient Time attestation: Total time spent providing and/or coordinating discharge services: Patient is an 84-year-old woman who came to the emergency room on April 02 with suprapubic and left lower quadrant abdominal pain that had started a couple of days before. The pain was intermittent crampy and sharp. She had been in our emergency room in October with complaints of back pain. CT scan at that time did show acute diverticulitis which was treated with Augmentin as an outpatient. In the emergency room on April 02 she was noted to have tenderness in the left lower quadrant and suprapubic area. She had some mild tachycardia but no fever. Her white blood cell count was at the upper limit of normal at 10,[address] scan showed kit acute diverticulitis with intramural abscesses. The same 10 cm segment of sigmoid colon appeared involved as had been noted on the October 2019 CT scan. The largest intramural fluid collection in the sigmoid colon was 2.9 cm. The patient was admitted started on bowel rest and IV Zosyn with p.r.n. analgesics. She improved fairly quickly in regards to her left lower quadrant abdominal pain. However the patient had significant problems with confusion which seemed mostly to be sundown syndrome. For family wish to have some generalized decrease in her cognitive abilities evaluated. Dr. Bates saw her for neurology consultation. It seemed as though she may have some dementia. Brain MRI did not show any acute findings. The EEG was negative. She continued to improve on IV Zosyn and was gradually increased to a low-fiber diet. She was very comfortable with no real abdominal tenderness on April 08. She has be able to be discharged now on Augmentin antibiotics and will follow up with me in 2 weeks. Exam GI: Inspection: normal to inspection and non-distended GI Palp: Yes Soft to palpation and No Tenderness to palpation present (GI) Auscultation: normal bowel sounds Discharge Plan Discharge Attending physician on discharge: Jeovany Morales Consulting providers: Myron Bland Discharging Clinician: Jeovany Morales Anticipated Discharge Date/Time: 04/08/20 06:58 Patient Disposition: Home, Self-Care Activity: as tolerated Diet: low fiber Patient Instructions: Diverticulitis (DC), Acute Abdominal Pain (DC), Fall Prevention (DC), Antibiotic Form Stand Alone Forms: General Discharge Information Follow-up/Referrals: Jeovany Morales MD [Physician] - 2 Weeks Myron Bland MD [Physician] - 2 Weeks Discharge Medications: New amoxicillin-pot clavulanate [Augmentin] 875-125 mg tablet 1 tablet PO Q12H Qty: 10 RF: 0 Date of admission: 04/04/20 14:00 Primary Care Provider: Shailesh,Kyle Castellanos Admitting Provider: Jeovany Morales Attending physician on admission: Jeovany Morales Condition: Stable
--- NOTE | 2020-04-09 07:56 | PC.NURSE ---
ARICEPT ORDERED AND TRANSMITTED TO PHARMACY. SPOKE TO DR DANIEL. LEFT MESSAGE FOR DAUGHTER Melisa
[2020-04-09 15:05] LABS: Red Blood Cell Folate 915 ng/mL RBC (>280)
[2020-04-11 22:03] LABS: Anti Nuclear Antibody Titer 1:40 (Negative)
== END 2020-04-08 12:47 | disposition home or self-care (01) | DRG 392 ==
LOC: ANHED 14:18 → ANH3MED 16:57
PROVIDERS: Nurse Practitioner Family; Psychiatry & Neurology Neurology; Admitting Provider Surgery; Emergency Provider Emergency Medicine; PCP Family Medicine; Visit Provider Surgery
DX: K57.20 Diverticulitis of large intestine with perforation and abscess without bleeding (principal); R41.0 Disorientation, unspecified; I10 Essential (primary) hypertension
CPT/HCPCS: 36415; 70551; 74177; 80048; 80053; 82607; 82747; 83690; 84436; 84443; 85025; 85027; 85055; 86038; 86039; 95816; 96361; 96365; 96366; 96367; 96372; 96375; 97165; 99285; A9270; G0378; J0131; J1650; J1741; J2270; J2405; J2543; J3480; J7030; Q9967

== ENCOUNTER 2020-09-27 18:16 | Emergency (ER) | payer MEDICARE, SELFPAY ==
--- NOTE | ~2020-09-27 | XR_ITS ---
EXAMINATION: XR shoulder RT min 2V, XR humerus RT DATE: 09/27/2020 18:52 INDICATION: Right shoulder and upper arm pain post fall TECHNIQUE: 1. AP internally and externally rotated and transscapular Y views of the right shoulder were obtained . 2. AP and lateral views of the left humerus were obtained. COMPARISON: None FINDINGS: Comminuted fracture of the proximal right humerus with mild displacement of a bone fragment compressi ng the inferior facet of the greater tuberosity with additional nondisplaced fracture line extending into the middle facet. Although a fracture plane is not clearly visualized the orientation of the hum eral head suggests an additional occult nondisplaced fracture across the surgical neck with mild post erior angulation. No other fractures identified in the more distal right upper arm or at the right cl avicle or scapula. The acromioclavicular and elbow joint spaces appear normal. The glenohumeral joint space is not clearly profiled of the humeral head remains normally centered over the glenoid on the transscapular Y projection. IMPRESSION: Comminuted 1 part fracture of the proximal right humerus with fractures involving greater tuberosity and likely also of the surgical neck Reviewed, dictated and finalized at location A. LOPMENT MGR IMPRESSION: Comminuted 1 part fracture of the proximal right humerus with fractures involvi ng greater tuberosity and likely also of the surgical neck
[2020-09-27 18:19] VITALS: BP 163/61; PULSE 82; RESP 20; TEMP 36.8; O2SAT 99
[2020-09-27 18:41] LABS: Basophils Absolute Auto 0.1 K/mm3 (0.0-0.1); Basophils Percent Auto 0.8 % (0.2-1.2); Eosinophils Absolute Auto 0.2 K/mm3 (0-0.3); Eosinophils Percent Auto 2.2 % (0-4.4); Hematocrit 44.8 % (37.0-47.0); Hemoglobin 14.7 g/dL (12.0-15.0); Immature Granulocyte Absolute 0.14 K/mm3 (0.00-0.031); Immature Granulocyte Percent A 1.5 % (0-0.5); Lymphocytes Absolute Auto 3.56 K/mm3 (0.9-3.2); Mean Corpuscular HGB Conc 32.8 g/dl (32-36); Mean Corpuscular Hemoglobin 27.7 pg (26-34); Mean Corpuscular Volume 84.5 fl (80-100); Mean Platelet Volume 10.5 fl (7.4-10.4); Monocytes Absolute Auto 0.6 K/mm3 (0.1-0.6); Neutrophils Absolute Auto 4.6 K/mm3 (1.3-6.7); Neutrophils Percent Auto 50.5 % (45.5-73.1); Platelet Count Result 243 k/mm3 (150-375); Red Cell Distribution Width 13.2 % (11.5-14.5); White Blood Count 9.1 K/mm3 (4.5-10.0)
[2020-09-27 18:50] LABS: Anion Gap 7 mmol/L (8-16); Blood Urea Nitrogen 14 mg/dL (7-17); Calcium 9.2 mg/dL (8.4-10.2); Carbon Dioxide 26 mmol/L (22-30); Chloride 107 mmol/L (98-107); Estimated CRCL calculation 49 ml/min; Estimated Glomerular Filt Rate > 60; Glucose 152 mg/dL (65-105); Potassium 3.9 mmol/L (3.4-5.0); Sodium 140 mmol/L (137-145)
--- NOTE | 2020-09-27 19:03 | PC.NURSE ---
Pt states she does not want pain medication at this time, she states im very sensitive to pain medication, it makes me dizzy
[2020-09-27 19:20] VITALS: BP 159/62; PULSE 84; RESP 20; O2SAT 96
--- NOTE | 2020-09-27 20:45 | ED.GENADULT ---
HPI - General Adult General Chief complaint: Extremity Injury, Upper Stated complaint: fall/ arm pain Time Seen by Provider: 09/27/20 18:22 Source: patient, family and EMS Mode of arrival: EMS Limitations: no limitations History of Present Illness HPI narrative: Patient is an 85-year-old female who presents for EMS status post ground-level fall from becoming tangled in a dog leash injuring the right upper extremity patient denies other injuries or complaints notes moderate aching pain to the right proximal humerus upon arrival patient denies syncope loss of consciousness head injury. Patient lives at home with herself but does have 4 children living locally 1 of which is present. Related Data Allergies Allergy/AdvReac Type Severity Reaction Status Date / Time metoprolol Allergy Unknown Dizziness Verified 04/22/20 09:17 Review of Systems Review of Systems: All systems reviewed & are unremarkable except as noted in HPI and below PMFSH Past Medical History Medical History (Updated 09/27/20 @ 20:50 by Bg Charles PA-C) History of gastroesophageal reflux (GERD) History of hypertension Surgical History Surgical History History of cholecystectomy History of hysterectomy Family History Family History Father Family history of premature coronary heart disease, Onset Age: 62 Patient's father is Mother Patient's mother is Other Cerebrovascular accident Diabetes mellitus Family history of arthritis Family history of gout Family history of heart disease in male family member before age 55 Family history of malignant neoplasm Hypertension Social History Social History Smoking status: Former smoker Smoking end date: 09/17/88 Alcohol intake: never Substance use: never Gender identity (if verbalized by the patient): Female Spiritual care concerns: No Exam Narrative: Exam Narrative: GENERAL: Well-appearing, well-nourished, and in no acute distress. HEAD: Normocephalic, atraumatic. EYES: PERRLA and EOMI. ENT: Nares clear, no rhinorrhea or epistaxis. Mucous membranes moist. NECK: Supple. No adenopathy or masses. CHEST: Clear to auscultation. No respiratory distress. No wheezes rales or rhonchi HEART: Regular rate and rhythm. No murmur heard. Normal peripheral pulses. ABDOMEN: Soft, nontender, nondistended EXTREMITIES: Tenderness of the proximal right humerus slight swelling remainder of extremities nontender no deformity. No cervical thoracic or lumbar tenderness SKIN: Warm, dry, no rash. NEURO: No focal deficits. Alert and oriented x3. Cranial nerves II through XII grossly intact. Neurovascularly intact. Apley refill less than 2 seconds PSYCH: Normal mood and affect. Course Course Emergency Course: Patient was evaluated for right shoulder injury revealing fracture placed in immobilizer established with orthopedic surgery for follow-up patient will be cared for by family members and feels comfortable with this plan. Normal vital signs hemodynamically stable Consultations Consultation #1: Discussed case with orthopedic surgeon Dr. Santillan recommends shoulder immobilizer and clinic follow-up Date: 09/27/20 Time: 20:48 Vital Signs Vital signs: Vital Signs Temperature 98.2 F 09/27/20 18:19 Pulse Rate 82 09/27/20 18:19 Respiratory Rate 20 09/27/20 18:19 Blood Pressure 163/61 H 09/27/20 18:19 Pulse Oximetry 99 09/27/20 18:19 Temperature 98.2 F 09/27/20 18:19 Pulse Rate 84 09/27/20 19:20 Respiratory Rate 20 09/27/20 19:20 Blood Pressure 159/62 H 09/27/20 19:20 Pulse Oximetry 96 09/27/20 19:20 Medical Decision Making MDM Narrative Medical decision making narrative: Patients injury or pain is consistent with musculoskeletal etiology. No signs of neur
== END 2020-09-27 21:21 | disposition home or self-care (01) ==
PROVIDERS: Emergency Medicine Emergency Medical Services; Emergency Provider Emergency Medicine; PCP Family Medicine
DX: S42.251A Displaced fracture of greater tuberosity of right humerus, initial encounter for closed fracture (principal); K21.9 Gastro-esophageal reflux disease without esophagitis; I10 Essential (primary) hypertension; Z87.891 Personal history of nicotine dependence; W22.8XXA Striking against or struck by other objects, initial encounter
CPT/HCPCS: 36415; 73030; 73060; 80048; 85025; 99284

== ENCOUNTER 2021-03-28 09:10 | Inpatient (IN) | payer MEDICARE, SELFPAY ==
[2021-03-28] VITALS (8 sets, daily range): BP systolic 132–158; BP diastolic 63–74; PULSE 66–98; RESP 16–18; TEMP 36.3–37.1; O2SAT 95–97; BMI 26.4
--- NOTE | ~2021-03-28 | XR_ITS ---
EXAMINATION: XR abdomen/kub 1V DATE: 03/29/2021 06:02 INDICATION: Large bowel obstruction. TECHNIQUE: A supine view of the abdomen on 2 radiographs was obtained. COMPARISON: CT abdomen and pelvis 03/28/2021 FINDINGS: The small bowel is normal in caliber. The colon is distended. Surgical clips in the right u pper quadrant are likely from cholecystectomy. IMPRESSION: 1. Distended colon, consistent with distal bowel obstruction. Reviewed, dictated and finalized at location A.
--- NOTE | ~2021-03-28 | CT_ITS ---
EXAMINATION: CT abdomen pelvis w con DATE: 03/28/2021 10:55 INDICATION: Left abdominal pain. TECHNIQUE: Computed tomography (CT) of the abdomen and pelvis was performed with 100 mL Omnipaque 350 intravenous contrast. Automated exposure control and iterative reconstruction technique were employe d. The dose-length product was 365.43 mGy-cm. COMPARISON: CT abdomen and pelvis 04/03/2020 FINDINGS: The visualized portions of the lung bases demonstrate mild atelectasis. No pleural effusion . There is left atrial enlargement of the heart. There is a small pericardial effusion. There is a sm all sliding hiatal hernia. The liver and spleen are normal. There are changes of cholecystectomy. The re is a chronic small sliding hiatal hernia. The pancreas, adrenal glands, and right kidney are ion l. There are cysts in left kidney measuring up to 3.3 cm. There is focal wall thickening of the sigmo id colon, which may be chronic diverticulitis or primary malignancy. There are scattered diverticula in the colon. The colon is distended proximal to the focal sigmoid wall thickening. The appendix is n ormal. The small bowel is normal in caliber. There is a right inguinal hernia containing fat. There a re no pathologically enlarged lymph nodes. There is no free intraperitoneal fluid. There is severe lo wer lumbar spondylosis. IMPRESSION: 1. Focal wall thickening of the sigmoid colon with bowel obstruction, consistent with chronic diverti culitis versus primary malignancy. Reviewed, dictated and finalized at location A. IMPRESSION: 1. Focal wall thickening of the sigmoid colon with bowel obstruction, consisten t with chronic diverticulitis versus primary malignancy.
--- NOTE | ~2021-03-28 | XR_ITS ---
EXAMINATION: XR abdomen NG/feed tube insert INDICATION: Nasogastric tube insertion TECHNIQUE: Portable AP KUB-NG at 0 to 54 hours COMPARISON: 03/31/2021 FINDINGS: The nasogastric tube is in the stomach. There are airspace opacities of the visualized lung bases. Cholecystectomy clips are noted. A right upper extremity PICC ends with its tip in the superi or vena cava. IMPRESSION: 1. Nasogastric tube is in stomach. 2. Bibasilar airspace opacities, consistent with atelectasis versus pneumonia. Reviewed, dictated and finalized at location A.
--- NOTE | ~2021-03-28 | XR_ITS ---
EXAMINATION: XR ribs RT 2V w CXR 2V DATE: 03/28/2021 10:08 INDICATION: Right posterior mid back pain TECHNIQUE: AP and lateral views of the chest and 3 views of the right ribs were obtained. 3 views of the left ribs, incorrectly labeled as right-sided were also obtained. COMPARISON: Chest radiograph dated 03/07/2020 FINDINGS: No rib fractures identified. Lungs are clear with no focal airspace opacities, pulmonary edema, pleur al effusion or pneumothorax. Cardiomegaly. Chronic minimal anterior wedging at T9. Cholecystectomy cl ips in the right upper quadrant. Air-fluid levels within the colon consistent with diarrhea. There is also a small gas-filled diverticulum. Old healed fracture from is at the bilateral humeral necks wit h mild secondary bilateral glenohumeral osteoarthritis. IMPRESSION: 1. No rib fracture or acute cardiopulmonary disease. 2. Cardiomegaly. Reviewed, dictated and finalized at location A.
--- NOTE | ~2021-03-28 | XR_ITS ---
EXAMINATION: XR abdomen/kub 1V EXAM DATE: 03/30/2021 08:32 INDICATION: sigmoid stricture. TECHNIQUE: Frontal projection(s) of the abdomen for interpretation. Comparison is made to prior exami nation from 03/28/2021. FINDINGS: Again there is moderate to severe distention of the colon with gas and fluid to a sigmoid s tricture identified on CT. Appearance is not significantly changed compared to yesterday. No small rosalind wel dilation. There are cholecystectomy clips. Lung bases are unremarkable. There are bony degenerati ve changes. IMPRESSION: Persistent moderate to severe colonic distention to known sigmoid stricture. Reviewed, dictated and finalized at location A.
--- NOTE | ~2021-03-28 | XR_ITS ---
XR abdomen/kub 1V DATE: 03/31/2021 05:49 INDICATION: Sigmoid stricture TECHNIQUE: Portable supine AP view on 03/31/2021 at 0545 hours COMPARISON: 03/30/2021 KUB 03/28/2021 CT abdomen pelvis FINDINGS: There is persistent prominent gaseous distention of the descending, transverse and right co héctor and suggestion of an apple core lesion at the proximal sigmoid colon, suggestive of colon carcino ma. Status post cholecystectomy. No visceromegaly is evident. Diffuse osteopenia. Degenerative changes thoracic and lumbar spine. IMPRESSION: Suggestion of an apple core constricting lesion of proximal sigmoid colon, with prominent proximal gaseous distention of the colon. Sigmoid colon carcinoma should be excluded. Consider diagn ostic radiographic enema or colonoscopy. Reviewed, dictated and finalized at Location A. Reviewed, dictated and finalized at location A. IMPRESSION: Suggestion of an apple core constricting lesion of proximal sigmoid colon, with prominent proximal gaseous distention of the colon. Sigmoid colon carcinoma should be excluded. Consider diagnostic radiographic enema or colonos copy.
[2021-03-28 09:46] LABS: Basophils Absolute Auto 0.1 K/mm3 (0.0-0.1); Basophils Percent Auto 0.5 % (0.2-1.2); Eosinophils Percent Auto 0.1 % (0-4.4); Hematocrit 44.8 % (37.0-47.0); Hemoglobin 14.6 g/dL (12.0-15.0); Immature Granulocyte Absolute 0.11 K/mm3 (0.00-0.031); Immature Granulocyte Percent A 0.9 % (0-0.5); Lymphocytes Absolute Auto 2.49 K/mm3 (0.9-3.2); Mean Corpuscular HGB Conc 32.6 g/dl (32-36); Mean Corpuscular Hemoglobin 27.9 pg (26-34); Mean Corpuscular Volume 85.5 fl (80-100); Mean Platelet Volume 10.6 fl (7.4-10.4); Monocytes Absolute Auto 0.6 K/mm3 (0.1-0.6); Monocytes Percent Auto 4.4 % (2.6-8.5); Neutrophils Absolute Auto 9.3 K/mm3 (1.3-6.7); Neutrophils Percent Auto 74.1 % (45.5-73.1); Platelet Count Result 288 k/mm3 (150-375); Red Blood Count 5.24 M/mm3 (4.2-5.4); Red Cell Distribution Width 13.4 % (11.5-14.5); White Blood Count 12.5 K/mm3 (4.5-10.0)
--- NOTE | 2021-03-28 09:46 | ED.ABDPAIN ---
HPI - Abdominal Pain General Chief Complaint: Abdominal Pain Stated Complaint: CHRONIC BACK PAIN & DIVERTICULITIS Time Seen by Provider: 03/28/21 09:23 Source: patient Mode of arrival: ambulatory Limitations: no limitations History of Present Illness HPI narrative: This is an 85-year-old female that presents to the emergency department for right-sided mid back pain present for years. Reports she wakes up with this pain almost daily. The pain is sharp and constant. She uses heating pads and takes Excedrin with some relief in her pain. She also reports she has been having some abdominal discomfort, nausea and vomiting. Reports history of recurrent diverticulitis and was wondering if she was having another flare. Denies fever, chest pain, shortness of breath, diarrhea, hematochezia, dysuria, hematuria. Related Data Allergies Allergy/AdvReac Type Severity Reaction Status Date / Time metoprolol Allergy Unknown Dizziness Verified 04/22/20 09:17 Review of Systems Review of Systems: Narrative: CONSTITUTIONAL: Denies fever CARDIOVASCULAR: Denies chest pain, or edema. RESPIRATORY: Denies dyspnea. GASTROINTESTINAL: Reports abdominal pain, nausea, vomiting. Denies diarrhea. GENITOURINARY: Denies dysuria or hematuria. SKIN: Denies rash MUSCULOSKELETAL: Reports back pain, joint pain, and myalgia. NEUROLOGIC: Denies numbness, or weakness. All systems reviewed & are unremarkable except as noted in HPI and below PMFSH Past Medical History Medical History (Updated 03/28/21 @ 14:36 by Elidia Price PA-C) Arthritis Chronic back pain Cognitive impairment Diverticulitis of intestine with abscess (03/2020) Gastroesophageal reflux disease Hypertension Not on medication as they cause her to feel dizzy. Transient ischemic attack (2003) Surgical History Surgical History (Updated 03/28/21 @ 13:48 by Kayleigh Triplett PA-C) History of cholecystectomy (10/30/11) History of hysterectomy History of tonsillectomy Family History Family History Father Family history of premature coronary heart disease, Onset Age: 62 Patient's father is Mother Patient's mother is Other Cerebrovascular accident Diabetes mellitus Family history of arthritis Family history of gout Family history of heart disease in male family member before age 55 Family history of malignant neoplasm Hypertension Social History Social History (Updated 03/28/21 @ 13:49 by Kayleigh Triplett PA-C) Social History: Surrogate decision maker: Damian Perry( son) or Dayanna Doe (daughter). Code status: Full code. Smoking status: Former smoker Smoking end date: 09/17/88 Alcohol intake: never Substance use: never Additional living arrangements comments: . Lives in [place]. Additional occupation/education comments: Retired caterer. Gender identity (if verbalized by the patient): Female Spiritual care concerns: No Exam Narrative: Exam Narrative: GENERAL: Elderly, well-nourished, and in no acute distress. HEAD: Normocephalic, atraumatic. EYES: EOMI. ENT: Nares clear, no rhinorrhea or epistaxis. Mucous membranes moist. Oropharynx without tonsillar hypertrophy exudate or other lesions. NECK: Supple. No adenopathy or masses. CHEST: Clear to auscultation. No respiratory distress. No wheezes rales or rhonchi HEART: Regular rate and rhythm. No murmur heard. Normal peripheral pulses. ABDOMEN: Soft, nondistended, normal active bowel sounds. Mild tenderness to palpation throughout the left side of the abdomen, without guarding BACK: No midline thoracic or lumbar spine tenderness EXTREMITIES: Normal range of motion. No edema. SKIN: Warm, dry, no rash. NEURO: No focal deficits. Alert and oriented x3. PSYCH: Normal mood and affect Course Consultations Consultation #1: Spoke with Dr. Powers about patient and work-up. Would like rick
[2021-03-28 09:56] LABS: Alanine Aminotransferase 16 U/L (4-35); Albumin Level 4.4 g/dL (3.5-5.1); Alkaline Phosphatase 104 U/L (38-126); Anion Gap 9 mmol/L (8-16); Aspartate Amino Transferase 23 U/L (14-36); Blood Urea Nitrogen 8 mg/dL (7-17); Calcium 9.2 mg/dL (8.4-10.2); Carbon Dioxide 21 mmol/L (22-30); Chloride 108 mmol/L (98-107); Estimated CRCL calculation 55 ml/min; Estimated Glomerular Filt Rate > 60; Glucose 132 mg/dL (65-105); Lipase 27 U/L (23-300); Potassium 3.2 mmol/L (3.4-5.0); Sodium 138 mmol/L (137-145)
[2021-03-28 11:01] LABS: Add Urine Microscopic? YES; Appearance Urine Cloudy (Clear); Bacteria Urine Trace /hpf; Bilirubin Urine Negative (Negative); Blood Urine 2+ (Negative); Color Urine Yellow (Yellow); Glucose Urine UA Negative (Negative); Ketones Urine Negative (Negative); Leukocyte Esterase Ur 3+ LEU/UL (Negative); Mucus Urine Few /lpf; Nitrate Urine Negative (Negative); Protein Urine Negative (Negative); Specific Grav Ur 1.023 (1.001-1.035); Squamous Epithelial Cell Urine Many /hpf (Few); Transitional Epi Cells Urine Rare /hpf (None Seen); Urobilinogen Urine Negative mg/dL (<2.0); WBC Urine 21-30 /hpf
[2021-03-28] MEDS: SODIUM CHLORIDE 0.9% IV 500 ML 300 ML (13:12)
--- NOTE | 2021-03-28 13:13 | PC.NURSE ---
Pt c/o burning in arm from potassium drip. Diluting with Normal saline
--- NOTE | 2021-03-28 15:00 | PM.IMHP ---
H&P: HPI History of Present Illness Date/Time: 03/28/21 15:00 Chief Complaint: Back pain. Narrative: This is an 85-year-old female with history of diverticulitis, chronic back pain, memory impairment, and hypertension (not on medication) who presented to the emergency department earlier today via private vehicle from home for evaluation of back pain. She has chronic back pain for decades and wakes up with this pain almost daily but it has been worse today, mainly in the right mid back. She has also been experiencing some mild, nondescript abdominal discomfort with nausea and emesis x1 and when this happens it is probably my diverticulitis flaring up. CT of the abdomen and pelvis showed evidence of large bowel obstruction as well as sigmoid thickening, possible diverticular stricture though malignancy is a possibility. She had a colonoscopy many years ago and reports that she will never have another. At the time my evaluation she tells me she feels just fine and is ready to go home. She is not complaining of any significant pain and she has not had nausea or vomiting. She is not passing gas nor has she had a bowel movement yet today. She denies fever, chills, and sweats. Weight has remained stable. No melena or hematochezia. Review of Systems Review of Systems: Narrative: Twelve systems were reviewed with pertinent positives and negatives as per HPI. Weight has remained stable. No fever, chills, or sweats. No recent cold or flu symptoms. Patient tells me that she bumps into things and does fall on occasion, denying recent fall, head trauma, or injury. No syncope or near syncope. She has not had chest pain or shortness of breath. Except as documented, all other systems were reviewed and are negative. [facility] Past Medical History Medical History (Updated 03/28/21 @ 23:06 by Kayleigh Triplett PA-C) Arthritis Chronic back pain Diverticulitis of intestine with abscess (03/2020) Gastroesophageal reflux disease Hypertension Not on medication as they cause her to feel dizzy. Memory impairment Transient ischemic attack (2003) Surgical History Surgical History History of cholecystectomy (10/30/11) History of hysterectomy History of tonsillectomy Family History Family History Father Patient's father is Family history of premature coronary heart disease, Onset Age: 62 Heart attack Mother Patient's mother is Colon cancer Other Cerebrovascular accident Diabetes mellitus Family history of arthritis Family history of gout Family history of heart disease in male family member before age 55 Family history of malignant neoplasm Hypertension Social History Social History Social History: Surrogate decision maker: Damian Perry( son) or Dayanna Gooding (daughter). Code status: Full code. Smoking packs per day: 1 Smoking cigarettes per day: 20.0 Years smoked: 20 Smoking pack-years: 20.00 Smoking status: Former smoker Tobacco type: cigarettes Smoking end date: 09/17/88 Alcohol intake: never Substance use: never Additional living arrangements comments: . Lives in [place]. Additional occupation/education comments: Retired caterer. Gender identity (if verbalized by the patient): Female Spiritual care concerns: No Meds Home Medications and Allergies Home Medications Medication Instructions Recorded Confirmed Type acetaminophen [Tylenol Arthritis 650 mg PO Q8H PRN #10 tablet 09/27/20 03/28/21 Rx Pain] Allergies Allergy/AdvReac Type Severity Reaction Status Date / Time metoprolol Allergy Unknown Dizziness Verified 03/28/21 15:32 Vital Signs Vital Signs - 24 hr 03/28/21 09:20 03/28/21 10:26 03/28/21 12:39 Temperature 98.7 F Pulse Rate 98 94 82 Re
--- NOTE | 2021-03-28 15:28 | ADMGEN ---
This patient, Pari Perry, was admitted to 3 [facility] Surg Room 309-01 @ 1520. Patient/family oriented to hospital policies and general routines including ID bracelet, bed and alarms, visiting hours, pain management, procedures, bathroom and other care routines, personal items, smoking policy, room service/diet, and visiting hours. Information on how to activate the Rapid Response Team has been discussed. Patient/Family are encouraged to report perceived risks to care and to ask questions if they do not understand what they are told or what they should do.
--- NOTE | 2021-03-28 16:57 | PM.CNGS ---
Assessment and Plan Assessment and plan (1) Sigmoid stricture: Code(s): K56.699 - Other intestinal obstruction unspecified as to partial versus complete obstruction Status: Acute Assessment and Plan: CT scand reviewed and discussed with the patient and her family in detail. There is evidence of focal wall thickening of the sigmoid colon with a large bowel obstruction. There was no significant dilatation of the small bowel or stomach. This is most likely secondary to a diverticular stricture, but there is also a possibility of malignancy. She has not had a recent colonoscopy and apparently did not follow-up for this after her last episode of diverticulitis. She is having some bowel function and her pain has improved. Will defer NG tube at this time, but may need to consider this if symptoms worsen or she begins vomiting. We could consider trying to slowly prep her bowels over the next few days. This would give her a better chance of avoiding an ostomy, but ultimately she will need a sigmoid resection. GI has been consulted as well. We will await their recommendations regarding endoscopic evaluation. I discussed treatment options with the patient and she was initially adamant about not wanting an ostomy or any surgery. We discussed the alternative risks of not having surgery, and after this conversation she stated that she would think about it and discuss with family. For now, continue bowel rest, IV antibiotics, IV fluids, and analgesics as needed. Continue to monitor with serial abdominal exams and imaging. Thank you for allowing us to see the patient in consultation and we will continue to follow along with you. (2) Bowel obstruction: Qualifiers: Intestinal obstruction extent: unspecified extent Intestinal obstruction type: unspecified Qualified Code(s): K56.609 - Unspecified intestinal obstruction, unspecified as to partial versus complete obstruction Code(s): K56.609 - Unspecified intestinal obstruction, unspecified as to partial versus complete obstruction Status: Acute Assessment and Plan: Secondary to #1 above. Continue bowel rest, IV fluids, and analgesics as needed. Will order a KUB for tomorrow morning. See plan above. (3) Acute hypokalemia: Code(s): E87.6 - Hypokalemia Status: Acute (4) Cognitive impairment: Code(s): R41.89 - Other symptoms and signs involving cognitive functions and awareness Status: Acute Assessment and Plan: Issues with memory and confusion. Had issues with sundowning on her admission last year as well. Monitor. Additional Plan I have discussed the patient's case and plan of care with Dr. Powers. History of Present Illness Consult details Consult date: 03/28/21 Reason for consult: other (Sigmoid stricture with bowel obstruction) Requesting physician: Elidia Price PA-C Narrative: This is an 85-year-old female with a history of diverticulitis, who presented to the emergency department with complaints of lower abdominal and back pain. She reportedly has had multiple episodes of diverticulitis in the past, but with the most recent occurring 1 year ago. She failed outpatient antibiotic treatment and ultimately required hospitalization after having findings of acute sigmoid diverticulitis with intramural abscesses. She ultimately improved and was discharged back home. She had followed up with our office as an outpatient after that episode, and a colonoscopy was recommended. The patient denies ever having the colonoscopy done. She does have dementia and has difficulty with recalling history and information. Her [id number] is at the bedside helping assist with her history, with the patient's permission. She began noticing lower abdominal and back pain yesterday morning upon waking. She reports this is a similar pain to what she experienced in the past. Her [id number] reports her having one episode of vomiting before family arrived at her house, b
[2021-03-29] MEDS: SODIUM CHLORIDE 0.9% IV 1,000 ML 75 ML IV CONT (01:14)
[2021-03-29 06:00] VITALS: BP 134/65; PULSE 76; RESP 18; TEMP 36.3; O2SAT 96
--- NOTE | 2021-03-29 06:34 | PC.NURSE ---
Patient refused cares until midnight. She acted very suspicious and refused assistance to the BR, medications, and assessment. Her daughter Odilon called at [phone] to discuss her mothers care and progress. We discussed her dementia and refusal of cares. She said that it would be best if her mother could just get some sleep and remain undisturbed for the night. On her request, Dr. Elizabeth was contacted. She had no further orders and didn't believe she could convince her of the importance of accepting cares. She also turned down the daughters request to let her have sips or ice chips r/t patient's refusal of an NG and . Her daughter Kayli called at approximately 0100 and had further requests to turn her TV to [employer] and keep her comfortable. Odilon was called on request of her mother and after discussing the risks of colon cancer and participating in treatment, she became much more pleasant and cooperated with nursing staff. She said her mother had of colon CA and wanted to do everything she could. A diagram was drawn showing where the sigmoid colon was and the most likely place for the obstruction. Medications that were previously refused were given at her request. She was pleasant and cooperative for the rest of the night until morning.
[2021-03-29 07:05] LABS: Anion Gap 11 mmol/L (8-16); Blood Urea Nitrogen 7 mg/dL (7-17); Calcium 8.8 mg/dL (8.4-10.2); Carbon Dioxide 21 mmol/L (22-30); Chloride 108 mmol/L (98-107); Estimated CRCL calculation 47 ml/min; Estimated Glomerular Filt Rate > 60; Glucose 115 mg/dL (65-105); Potassium 2.9 mmol/L (3.4-5.0); Sodium 140 mmol/L (137-145)
[2021-03-29 07:34] LABS: Carcinoembryonic Antigen 1.2 ng/mL (0.0-3.0)
[2021-03-29] MEDS: LACTATED RINGERS 1,000 ML 75 ML IV CONT ×2 (08:39→23:02)
--- NOTE | 2021-03-29 08:40 | PM.IMPN ---
Progress Note: A&P Assessment and Plan (1) Bowel obstruction: Qualifiers: Intestinal obstruction extent: unspecified extent Intestinal obstruction type: unspecified Qualified Code(s): K56.609 - Unspecified intestinal obstruction, unspecified as to partial versus complete obstruction Code(s): K56.609 - Unspecified intestinal obstruction, unspecified as to partial versus complete obstruction Status: Acute Assessment and Plan: The patient presented to the ER with back and abdominal pain, found to have bowel obstruction which may be due to diverticular stricture or even malignancy. She has been started on Zosyn and she will be on bowel rest for now. Surgery Evaluated the patient and is interested in GI consultation for possible colonoscopy to evaluate cause of the obstruction at this time the patient is comfortable without any issues. NPO at this time Continue monitoring and appreciate input from GI and surgery. (2) Diverticulitis: Code(s): K57.92 - Diverticulitis of intestine, part unspecified, without perforation or abscess without bleeding Status: Acute Assessment and Plan: History of diverticulitis in the past. the patient is on IV Zosyn at this time for treatment of diverticulitis as possible cause of her obstruction. Continue monitoring. (3) Abnormal urinalysis: Code(s): R82.90 - Unspecified abnormal findings in urine Status: Acute Assessment and Plan: Urinalysis is abnormal however she has no symptoms of UTI. Believe it is a contamination. Urine culture pending. (4) Hypokalemia: Code(s): E87.6 - Hypokalemia Status: Acute Assessment and Plan: Potassium was low at 2.9. Will be replaced and monitored. Magnesium normal at 2.0. Switched IV fluids to LR with potassium (5) Hypertension: Code(s): I10 - Essential (primary) hypertension Status: Acute Assessment and Plan: blood pressure stable this morning 134/65. patient states she does not take any blood pressure medications because it makes her feel dizzy. Continue monitoring (6) Chronic back pain: Code(s): M54.9 - Dorsalgia, unspecified; G89.29 - Other chronic pain Status: Acute Assessment and Plan: No complaints today. Continue home medications. (7) Cognitive impairment: Code(s): R41.89 - Other symptoms and signs involving cognitive functions and awareness Status: Inactive Assessment and Plan: normal mood and affect. Continue monitoring with hospitalization. Time Spent With Patient Time with patient: 25 - 35 minutes Subjective Date/time seen: 03/29/21 08:40 Interval history: Date of service 03/29/21: the patient reports feeling well today. She really has minimal abdominal discomfort and bloating. She is passing gas and having bowel movements. She denies any nausea, vomiting, chest pain, shortness of breath, cough, fever, chills, leg swelling, calf pain or any other symptoms at this time. She denies any weight loss or decrease in her appetite recently. Review of Systems Review of Systems: All systems reviewed & are unremarkable except as noted in HPI and below Exam Narrative: Exam Narrative: General: 85-year-old Woman laying flat in bed, sleeping, easily arousable. Appears comfortable. In no acute distress. Skin: No jaundice or cyanosis. Good skin turgor. Neck: Full range of motion. Supple. Respiratory: Lungs are clear to auscultation bilaterally. No bony chest wall tenderness. Cardiovascular: The heart has a regular rate and rhythm without murmur. Lo
[2021-03-29 09:02] LABS: Basophils Absolute Auto 0.1 K/mm3 (0.0-0.1); Basophils Percent Auto 0.7 % (0.2-1.2); Eosinophils Absolute Auto 0.1 K/mm3 (0-0.3); Eosinophils Percent Auto 1.4 % (0-4.4); Hematocrit 41.5 % (37.0-47.0); Hemoglobin 13.2 g/dL (12.0-15.0); Immature Granulocyte Absolute 0.07 K/mm3 (0.00-0.031); Immature Granulocyte Percent A 0.7 % (0-0.5); Immature Platelet Fraction Pct 3.4 % (0.9-11.2); Lymphocytes Absolute Auto 2.86 K/mm3 (0.9-3.2); Lymphocytes Percent Auto 30.6 % (18.3-44.2); Mean Corpuscular HGB Conc 31.8 g/dl (32-36); Mean Corpuscular Hemoglobin 27.3 pg (26-34); Mean Corpuscular Volume 85.9 fl (80-100); Mean Platelet Volume 10.4 fl (7.4-10.4); Monocytes Absolute Auto 0.7 K/mm3 (0.1-0.6); Monocytes Percent Auto 7.9 % (2.6-8.5); Neutrophils Absolute Auto 5.5 K/mm3 (1.3-6.7); Neutrophils Percent Auto 58.7 % (45.5-73.1); Platelet Count Result 258 k/mm3 (150-375); Red Blood Count 4.83 M/mm3 (4.2-5.4); Red Cell Distribution Width 13.4 % (11.5-14.5); White Blood Count 9.4 K/mm3 (4.5-10.0)
--- NOTE | 2021-03-29 13:04 | PM.PNGS ---
Progress Note: A&P Assessment and Plan (1) Sigmoid stricture: Code(s): K56.699 - Other intestinal obstruction unspecified as to partial versus complete obstruction Status: Acute Assessment and Plan: Patient is not completely obstructed but X-ray this AM still shows significant dilated colon suggestive on near complete obstruction. She denies any feelings of bloating or nausea and wants to eat. I discussed that further investigation with colonoscopy may be beneficial to determine if this is benign or malignant, but she is refusing colonoscopy. She is also refusing surgery at this time, but says that she will consider it if she is having worsening symptoms. I had a lengthy discussion with her and her daughter that if she waits to decide on surgery until she is completely obstructed, then ostomy will be necessary. If she decides on surgery now or in the very short future, we may be able to slowly prep her bowels and perform a one-stage surgery without ostomy. There are understandable risks to surgery given her age, and there are always risks of anastomotic leak which might require diversion. I discussed with her that refusing surgery now, I have no way of telling whether she will become obstructed again tomorrow, next week, or next year. Judging by the imaging findings it will be sooner rather than later. I gave her my clinical judgement and recommendations, but she says she feels too good right now to believe she is obstructed. She would like to try medical treatment alone and will take my recommendations into consideration. Will place her on full liquid diet. Can advance to low fiber diet tomorrow if she is tolerating. Will also start MiraLax and recommend she continue this to prevent constipation given how narrow her sigmoid colon likely is. (2) Diverticulitis: Code(s): K57.92 - Diverticulitis of intestine, part unspecified, without perforation or abscess without bleeding Status: Acute Subjective Subjective Date/Time Seen: 03/29/21 13:04 Interval history: Patient moving her bowels and passing flatus. Denies feeling bloated or nauseated. No more abdominal pain. Exam GI: Inspection: distended GI Palp: Yes Soft to palpation, No Tenderness to palpation present (GI), No Guarding due to palpation present (GI) and No Rebound tenderness present Percussion: Yes tympanic to percussion Objective Data Vital Signs Vital Signs: Vital Signs - 24 hr 03/28/21 13:32 03/28/21 15:11 03/28/21 15:28 Temperature Pulse Rate 82 66 66 Respiratory Rate 18 18 18 Blood Pressure 132/63 135/63 135/63 Pulse Oximetry 97 96 96 03/28/21 15:42 03/28/21 22:00 03/29/21 06:00 Temperature 36.7 C 36.3 C L 36.3 C L Pulse Rate 66 80 76 Respiratory Rate 16 16 18 Blood Pressure 138/65 151/66 H 134/65 Pulse Oximetry 95 95 96 Intake/Output Intake/Output: Intake & Output 03/26/21 03/27/21 03/28/21 03/29/21 23:59 23:59 23:59 23:59 Intake Total 960 500 Output Total 200 Balance 760 500 Meds/Results Medications: Active Medications Generic Name Dose Route Start Last Admin Trade Name Freq PRN Reason Stop Dose Admin Piperacillin/Tazobactam/Dextrose 3.375 gm in 50 mls @ 100 mls/hr 03/28/21 18:00 03/29/21 05:29 Zosyn 3.375 Gm/D5w 50ml Pm IVPB 100 mls/hr Q6HR SPEEDY Administration Lactated Ringer's 1,000 mls @ 75 mls/hr 03/29/21 07:40 03/29/21 08:39 Lr - Lactated Ringers Iv IV CONT 75 mls/hr .[id number] SPEEDY Administration Radiology Results: ITS Impressions Ribs w/Chest X-Ray 03/28/21 10:12 IMPRESSION: 1. No rib fracture or acute cardiopulmonary disease. 2. Cardiomegaly. Abdomen/Pelvis CT 03/28/21 11:01 IMPRESSION: 1. Focal wall thickening of the sigmoid colon with bowel obstruction, consistent with chronic diverticulitis versus primary malignancy. Abdomen X-Ray 03/29/21 06:41 IMPRESSION: 1. Distended colon, consistent with distal bowel obstruction. Labs Labs
[2021-03-29 13:49] VITALS: BP 151/79; PULSE 86; RESP 20; TEMP 36.8; O2SAT 97
[2021-03-29] MEDS: polyethylene glycoL 3350 17 GM POWD.PACK PO (17:30)
[2021-03-29] MEDS: POTASSIUM CHLORIDE 20 MEQ TABLET 40 MEQ PO (18:29)
[2021-03-29 22:00] VITALS: BP 160/72; PULSE 76; RESP 22; TEMP 36.8; O2SAT 96
[2021-03-30 06:00] VITALS: BP 138/58; PULSE 64; RESP 18; TEMP 36.2; O2SAT 94
[2021-03-30] MEDS: ONDANSETRON INJ 4 MG/2 ML VIAL IV PUSH (06:30)
--- NOTE | 2021-03-30 06:53 | PCDIET ---
Patient's daughter stayed with her through the night. She had an increase in pain and nausea. She says though that she has been passing a few liquid stools. Patient has been talking about surgery at night and says she wants to have it done r/t her mother dying of colon cancer. Though it has been reported that she has been refusing all invasive procedures during the day. She said she has been feeling especially bloated and nauseous tonight, her stomach is distended. She has been burping and heaving intermittently. Patient has alternated between being polite and trusting and very suspicious, most recently saying that she thinks she is in an experimental hospital and things here haven't been kosher . Discussing her choice to be cooperative with medical recommendations has been contradictory to reports of day shift's reports of refusal. Her daughter has also confirmed this, that she has been refusing invasive treatments during the day.
[2021-03-30 07:09] LABS: Anion Gap 8 mmol/L (8-16); Blood Urea Nitrogen 5 mg/dL (7-17); Calcium 8.5 mg/dL (8.4-10.2); Carbon Dioxide 20 mmol/L (22-30); Chloride 110 mmol/L (98-107); Estimated CRCL calculation 47 ml/min; Estimated Glomerular Filt Rate > 60; Glucose 114 mg/dL (65-105); Magnesium 1.9 mg/dL (1.6-2.3); Sodium 138 mmol/L (137-145)
[2021-03-30] MEDS: polyethylene glycoL 3350 17 GM POWD.PACK PO (08:21)
[2021-03-30] MEDS: LACTATED RINGERS 1,000 ML 75 ML IV CONT ×2 (10:47→22:46)
[2021-03-30] MEDS: BISACODYL 10 MG SUPPOSITORY RECTAL (10:49)
--- NOTE | 2021-03-30 13:40 | PM.PNGS ---
Progress Note: A&P Assessment and Plan (1) Sigmoid stricture: Code(s): K56.699 - Other intestinal obstruction unspecified as to partial versus complete obstruction Status: Acute Assessment and Plan: Near complete obstruction with still significant dilated colon on this morning's X-ray. She had worsening abdominal pain, bloating, and nausea overnight after advancing to full liquids. The family and the patient had a conversation, and are now considering surgery. I will switch her back to clear liquids and continue gently prepping her bowels over the next few days. Will give her a dulcolax suppository and continue the Miralax. (2) Diverticulitis: Code(s): K57.92 - Diverticulitis of intestine, part unspecified, without perforation or abscess without bleeding Status: Acute Additional Plan I have discussed the case and plan of care with Dr. Powers. Subjective Subjective Date/Time Seen: 03/30/21 13:40 Patient reports: still having pain, flatus and nausea Interval history: Patient seen today with her daughter, Odilon, at the bedside. She reports having a lot of abdominal pain overnight and into this morning with associated bloating and nausea. No vomiting. She reports shortly after taking the Miralax this morning, she had a large liquid bowel movement and feels like her bloating and abd pain was better after the BM. The patient and her daughter have talked with all of the patient's children, and she reports that she is now considering surgery at this time. She would like to try prepping her bowels to move forward with the surgery. No other complaints at this time. Review of Systems Review of Systems: All systems reviewed & are unremarkable except as noted in HPI and below Constitutional: Comments: Confusion and memory loss at baseline limits ROS Gastrointestinal: Gastrointestinal: Reports as per HPI and Reports no additional gastrointestinal complaints Exam Const: General: comfortable, no acute distress and awake Orientation/consciousness: confusion (at times, dementia) Resp: Effort & Inspection: no respiratory distress Auscultation: clear to auscultation bilaterally Cardio: Rate: regular rate Rhythm: regular rhythm GI: Inspection: distended GI Palp: Yes Firmness to palpation present (GI) (across the upper abdomen), Yes Tenderness to palpation present (GI) (mostly in the upper abdomen), No Guarding due to palpation present (GI) and No Rebound tenderness present Auscultation: Hypoactive bowel sounds present Neuro: General: moves all extremities and no focal motor deficits Extrem: General: no clubbing, cyanosis or edema Psych: Insight: Limited insight present (Psych) Judgement: Limited judgement present (Psych) Objective Data Vital Signs Vital Signs: Vital Signs - 24 hr 03/29/21 13:49 03/29/21 22:00 03/30/21 06:00 Temperature 98.2 F 98.3 F 97.1 F L Pulse Rate 86 76 64 Respiratory Rate 20 22 H 18 Blood Pressure 151/79 H 160/72 H 138/58 L Pulse Oximetry 97 96 94 Intake/Output Intake/Output: Intake & Output 03/27/21 03/28/21 03/29/21 03/30/21 23:59 23:59 23:59 23:59 Intake Total 960 3250 1570 Output Total 200 700 Balance 760 2550 1570 Meds/Results Medications: Active Medications Generic Name Dose Route Start Last Admin Trade Name Freq PRN Reason Stop Dose Admin Piperacillin/Tazobactam/Dextrose 3.375 gm in 50 mls @ 100 mls/hr 03/28/21 18:00 03/30/21 05:30 Zosyn 3.375 Gm/D5w 50ml Pm IVPB Infused Q6HR SPEEDY Infusion Lactated Ringer's 1,000 mls @ 75 mls/hr 03/29/21 07:40 03/30/21 10:47 Lr - Lactated Ringers Iv IV CONT 75 mls/hr .[id number] SPEEDY Administration Acetaminophen 1,000 mg in 100 mls @ 400 mls/hr 03/29/21 21:18 03/30/21 06:15 Ofirmev 1,000 Mg Ivpb IVPB 03/30/21 21:19 Infused Q6H PRN Infusion Pain Rated 4-10 Ondansetron HCl 4 mg 03/30/21 06:08 03/30/21 06:30 Ondansetron Inj 4 Mg/2 Ml Vial IV PUSH 4 mg Q6H PRN Adminis
[2021-03-30 14:00] VITALS: BP 136/56; PULSE 60; RESP 20; TEMP 36.9; O2SAT 94
[2021-03-30] MEDS: LIDOCAINE HCL 1% PF INJ 5 ML VIAL INFILTRATE (14:40)
--- NOTE | 2021-03-30 15:23 | PM.IMPN ---
Progress Note: A&P Assessment and Plan (1) Bowel obstruction: Qualifiers: Intestinal obstruction extent: unspecified extent Intestinal obstruction type: unspecified Qualified Code(s): K56.609 - Unspecified intestinal obstruction, unspecified as to partial versus complete obstruction Code(s): K56.609 - Unspecified intestinal obstruction, unspecified as to partial versus complete obstruction Status: Acute Assessment and Plan: PATIENT STATES THAT SHE WOULD LIKE TO OBTAIN A 2ND OPINION BEFORE MOVING FORWARD WITH SURGERY The patient presented to the ER with back and abdominal pain, found to have bowel obstruction which may be due to diverticular stricture or even malignancy. She has been started on Zosyn and she will be on bowel rest for now. Surgery Evaluated the patient and is interested in GI consultation for possible colonoscopy to evaluate cause of the obstruction at this time the patient is comfortable without any issues. NPO at this time Continue monitoring and appreciate input from GI and surgery. (2) Diverticulitis: Code(s): K57.92 - Diverticulitis of intestine, part unspecified, without perforation or abscess without bleeding Status: Acute Assessment and Plan: History of diverticulitis in the past. the patient is on IV Zosyn at this time for treatment of diverticulitis as possible cause of her obstruction. Continue monitoring. (3) Abnormal urinalysis: Code(s): R82.90 - Unspecified abnormal findings in urine Status: Acute Assessment and Plan: Urinalysis is abnormal however she has no symptoms of UTI. Believe it is a contamination. Urine culture pending. (4) Hypokalemia: Code(s): E87.6 - Hypokalemia Status: Acute Assessment and Plan: CONTINUE TO MONITOR RIB PATIENT IS NEEDED Potassium was low at 2.9. Will be replaced and monitored. Magnesium normal at 2.0. Switched IV fluids to LR with potassium (5) Hypertension: Code(s): I10 - Essential (primary) hypertension Status: Acute Assessment and Plan: blood pressure stable this morning 134/65. patient states she does not take any blood pressure medications because it makes her feel dizzy. Continue monitoring (6) Chronic back pain: Code(s): M54.9 - Dorsalgia, unspecified; G89.29 - Other chronic pain Status: Acute Assessment and Plan: No complaints today. Continue home medications. (7) Cognitive impairment: Code(s): R41.89 - Other symptoms and signs involving cognitive functions and awareness Status: Inactive Assessment and Plan: normal mood and affect. Continue monitoring with hospitalization. Additional Plan PATIENT DESIRES TO OBTAIN A 2ND OPINION The patient presents today with back and abdominal pain, found to have bowel obstruction which may be due to diverticular stricture or even malignancy. She has been started on Zosyn and she will be on bowel rest for now. We are holding on NG at this time as she has had no nausea or vomiting and is feeling quite a bit better. Surgery and GI have been consulted and their input is appreciated. She remain NPO. Elevate head of bed. Potassium was slightly low and will be replaced and monitored. Urinalysis is abnormal however she has no symptoms of UTI. Her home medications will be reviewed and resumed as appropriate. Blood pressures were reviewed and they are reasonable. She will not take antihypertensives as they make her feel dizzy. Subjective Date/time seen: 03/30/21 15:23 I FEEL BETTER Interval history: DATE OF SERVICE 07
[2021-03-30] MEDS: SIMETHICONE 80 MG TAB.CHEW PO (17:37)
[2021-03-30 22:00] VITALS: BP 122/54; PULSE 67; RESP 18; TEMP 36.8; O2SAT 91
[2021-03-31 06:00] VITALS: BP 118/44; PULSE 63; RESP 16; TEMP 36.8; O2SAT 95
[2021-03-31 08:26] LABS: Anion Gap 9 mmol/L (8-16); Blood Urea Nitrogen 5 mg/dL (7-17); Calcium 8.5 mg/dL (8.4-10.2); Carbon Dioxide 20 mmol/L (22-30); Chloride 108 mmol/L (98-107); Estimated CRCL calculation 47 ml/min; Estimated Glomerular Filt Rate > 60; Glucose 97 mg/dL (65-105); Magnesium 1.8 mg/dL (1.6-2.3); Potassium 2.9 mmol/L (3.4-5.0); Sodium 137 mmol/L (137-145)
--- NOTE | 2021-03-31 11:41 | PM.PNGS ---
Progress Note: A&P Assessment and Plan (1) Sigmoid stricture: Code(s): K56.699 - Other intestinal obstruction unspecified as to partial versus complete obstruction Status: Acute Assessment and Plan: Had long discussion again today with patient and daughters. She is having bowel function but not able to tolerate much PO and still distended. She will not get better without surgery and she already has had minimal caloric intake since being admitted 3 days ago. I have recommended hand assisted laparoscopic sigmoid colectomy, possible open, possible ostomy. I will try to gently prep her bowels today with 1/2 bottle Mag Citrate, but discussed that this may cause worsened bloating, nausea, or vomiting. Discussed with nurse about taking it a little at a time and holding if she is too nauseated to tolerate. Her abdomen is slightly softer today and a little less distended but her abdominal Xray is essentially unchanged. I discussed that there is a good possibility of conversion to open as well as need for ostomy. I made no guarantees. I also discussed risk of anastomotic leak with anastomosis which could require takeback to surgery and ostomy. Patient is confused and has memory issues. She continually asks what are her odds and how is this going to go. I made it as clear as possible to her that she will not get better without surgery. She and her family have the option of refusing surgery but that will risk perforation of her bowel or gradually lead to secondary to inability to eat. Questions were answered. Will plan for surgery tomorrow. Will place PICC line and start PPN/TPN. (2) Memory impairment: Code(s): R41.3 - Other amnesia Status: Acute (3) Diverticulitis: Code(s): K57.92 - Diverticulitis of intestine, part unspecified, without perforation or abscess without bleeding Status: Acute (4) Acute hypokalemia: Code(s): E87.6 - Hypokalemia Status: Acute Assessment and Plan: Replace per Hospitalist Subjective Subjective Date/Time Seen: 03/31/21 11:41 Interval history: Patient not taking much PO. No nausea or vomiting. Having diarrhea and flatus. Still bloated. No abdominal pain. Exam GI: Inspection: distended GI Palp: Yes Soft to palpation, No Tenderness to palpation present (GI), No Guarding due to palpation present (GI) and No Rebound tenderness present Percussion: Yes tympanic to percussion Objective Data Vital Signs Vital Signs: Vital Signs - 24 hr 03/30/21 14:00 03/30/21 22:00 03/31/21 06:00 Temperature 36.9 C 36.8 C 36.8 C Pulse Rate 60 67 63 Respiratory Rate 20 18 16 Blood Pressure 136/56 L 122/54 L 118/44 L Pulse Oximetry 94 91 95 Intake/Output Intake/Output: Intake & Output 03/28/21 03/29/21 03/30/21 03/31/21 23:59 23:59 23:59 23:59 Intake Total 960 3250 3590 490 Output Total 200 700 Balance 760 2550 3590 490 Meds/Results Medications: Active Medications Generic Name Dose Route Start Last Admin Trade Name Freq PRN Reason Stop Dose Admin Acetaminophen 650 mg 03/30/21 22:06 Acetaminophen 325 Mg Tablet PO Q6H PRN Mild Pain (1-3) or Fever Calcium Carbonate 200 mg 03/30/21 21:25 Calcium Carbonate (Tums) 500 Mg (200 Mg Elemental) PO Q6H PRN Indigestion Piperacillin/Tazobactam/Dextrose 3.375 gm in 50 mls @ 100 mls/hr 03/28/21 18:00 03/31/21 05:47 Zosyn 3.375 Gm/D5w 50ml Pm IVPB 100 mls/hr Q6HR SPEEDY Administration Lactated Ringer's 1,000 mls @ 75 mls/hr 03/29/21 07:40 03/30/21 22:46 Lr - Lactated Ringers Iv IV CONT 75 mls/hr .[id number] SPEEDY Administration Potassium Chloride 500 mls @ 125 mls/hr 03/31/21 11:16 Kcl 40 Meq/D5w 500 Ml Peripheral IVPB 03/31/21 15:15 ONCE ONE Lidocaine HCl 5 ml 03/31/21 11:34 Lidocaine Hcl 1% Pf Inj 5 Ml Vial INFILTRATE 03/31/21 11:35 ONCE ONE Magnesium Citrate 150 ml 03/31/21 11:31 Magnesium Citrate 300 Ml Btl PO
--- NOTE | 2021-03-31 11:42 | PM.IMPN ---
Progress Note: A&P Assessment and Plan (1) Bowel obstruction: Qualifiers: Intestinal obstruction extent: unspecified extent Intestinal obstruction type: unspecified Qualified Code(s): K56.609 - Unspecified intestinal obstruction, unspecified as to partial versus complete obstruction Code(s): K56.609 - Unspecified intestinal obstruction, unspecified as to partial versus complete obstruction Status: Acute Assessment and Plan: The patient presented to the ER with back and abdominal pain, found to have bowel obstruction which may be due to diverticular stricture or even malignancy. She has been started on Zosyn. Surgery evaluated the patient and they have agreed to have surgery tomorrow. At this time, the patient is comfortable without any issues. Clear liquid diet at this time. Continue monitoring and appreciate input from GI and surgery. (2) Diverticulitis: Code(s): K57.92 - Diverticulitis of intestine, part unspecified, without perforation or abscess without bleeding Status: Acute Assessment and Plan: History of diverticulitis in the past. The patient is on IV Zosyn at this time for treatment of diverticulitis as possible cause of her obstruction. Continue monitoring. (3) Abnormal urinalysis: Code(s): R82.90 - Unspecified abnormal findings in urine Status: Acute Assessment and Plan: Urinalysis is abnormal however she has no symptoms of UTI. Believe it is a contamination. Urine culture shows no growth. (4) Hypokalemia: Code(s): E87.6 - Hypokalemia Status: Acute Assessment and Plan: Potassium was low at 2.9. Will be replaced and monitored. Recheck after IV infusion. Magnesium normal at 1.8. (5) Hypertension: Code(s): I10 - Essential (primary) hypertension Status: Acute Assessment and Plan: Blood pressure stable this morning 118/44. Patient states she does not take any blood pressure medications because it makes her feel dizzy. Continue monitoring (6) Chronic back pain: Code(s): M54.9 - Dorsalgia, unspecified; G89.29 - Other chronic pain Status: Acute Assessment and Plan: No complaints today. Continue home medications. (7) Cognitive impairment: Code(s): R41.89 - Other symptoms and signs involving cognitive functions and awareness Status: Inactive Assessment and Plan: normal mood and affect. Continue monitoring with hospitalization. Time Spent With Patient Time with patient: 25 - 35 minutes Subjective Date/time seen: 03/31/21 11:42 Interval history: Date of service 03/31/21: The patient reports feeling well today, denies much abdominal distention or discomfort. She is having diarrhea from the bowel prep. Denies much belching. She denies any nausea, vomiting, chest pain, shortness of breath, cough, fever, chills, leg swelling, calf pain or any other symptoms at this time. She denies any weight loss or decrease in her appetite recently. Review of Systems Review of Systems: All systems reviewed & are unremarkable except as noted in HPI and below Exam Narrative: Exam Narrative: General: 85-year-old man sitting up in bed with daughters at bedside. Appears comfortable. In no acute distress. Skin: No jaundice or cyanosis. Good skin turgor. Neck: Full range of motion. Supple. Respiratory: Lungs are clear to auscultation bilaterally. No bony chest wall tenderness. Cardiovascular: The heart has a regular rate and rhythm without murmur. Lower extremities: No lower extremity edema. Distal pulses are easily palpated. N
--- NOTE | 2021-03-31 12:45 | PC.NURSE ---
patient able to answer orientation questions: she knows herself, birthdate, that she is at [facility] and the year. obtained consent for picc line with patient with daughter at bedside. all questions answered at this time. patient and daughter ok to proceed with picc line
[2021-03-31] MEDS: LACTATED RINGERS 1,000 ML 75 ML IV CONT (13:33)
[2021-03-31] MEDS: POTASSIUM CHLORIDE 20 MEQ TABLET 40 MEQ PO ×2 (13:34→22:22)
[2021-03-31] MEDS: SIMETHICONE 80 MG TAB.CHEW PO ×2 (13:34→17:06)
[2021-03-31 13:38] VITALS: BMI 26.7
[2021-03-31 14:00] VITALS: BP 124/55; PULSE 65; RESP 20; TEMP 36.9; O2SAT 91
[2021-03-31 14:25] LABS: Glucose Point of Care 119 mg/dl (65-105)
--- NOTE | 2021-03-31 14:56 | PCWOUND ---
WOCN NOTE received orders to kaycee both sides of the abdomen for ostomy sites. abdomen is difficult to kaycee due to thick tissue roll in lower quadrants. had patient lay flat and sit up to determine best sites. placed black marker X at sites and covered with tegaderm dressings.
[2021-03-31] MEDS: MAGNESIUM CITRATE 300 ML BTL 150 ML PO (15:33)
[2021-03-31] MEDS: AMINO ACIDS 4.25%/D5W/LYTES/CA 2,000 ML 100 ML IV CONT (15:37)
[2021-03-31] MEDS: FAT EMULSIONS IV 20% 250 ML 20.83 ML IVPB (15:38)
[2021-03-31] MEDS: ACETAMINOPHEN 325 MG TABLET 650 MG PO (17:06)
[2021-03-31 18:32] LABS: Glucose Point of Care 112 mg/dl (65-105)
[2021-03-31 19:38] LABS: Magnesium 1.9 mg/dL (1.6-2.3); Potassium 3.1 mmol/L (3.4-5.0)
--- NOTE | 2021-03-31 20:19 | PC.NURSE ---
consent for procedure and blood obtained. patient alert and oriented. patient asking appropriate questions and can verbalize back answers. daughter at bedside with patient. Daughter also aware and agreeable to procedure and asking appropriate questions. All questions answered at this time.
[2021-03-31 22:00] VITALS: BP 124/61; PULSE 59; RESP 16; TEMP 36.4; O2SAT 96
[2021-03-31] MEDS: CENTRAL LINE FLUSH 10 ML IV PUSH (22:22)
[2021-04-01] VITALS (12 sets, daily range): BP systolic 109–173; BP diastolic 44–96; PULSE 69–90; RESP 16–22; TEMP 36.3–36.8; O2SAT 93–100
[2021-04-01 05:50] LABS: Glucose Point of Care 132 mg/dl (65-105)
[2021-04-01] MEDS: CENTRAL LINE FLUSH 10 ML IV PUSH ×2 (06:19→23:20)
[2021-04-01 06:22] LABS: Glucose Point of Care 132 mg/dl (65-105)
[2021-04-01 06:40] LABS: Alanine Aminotransferase 13 U/L (4-35); Albumin Level 3.3 g/dL (3.5-5.1); Alkaline Phosphatase 55 U/L (38-126); Anion Gap 7 mmol/L (8-16); Aspartate Amino Transferase 17 U/L (14-36); Bilirubin,Total 0.5 mg/dL (0.2-1.3); Blood Urea Nitrogen 10 mg/dL (7-17); Calcium 8.4 mg/dL (8.4-10.2); Carbon Dioxide 21 mmol/L (22-30); Chloride 108 mmol/L (98-107); Estimated CRCL calculation 54 ml/min; Estimated Glomerular Filt Rate > 60; Glucose 123 mg/dL (65-105); Phosphorus 2.4 mg/dL (2.5-4.5); Potassium 3.3 mmol/L (3.4-5.0); Sodium 136 mmol/L (137-145); Triglycerides 85 mg/dL (<150)
[2021-04-01 06:47] LABS: Transferrin 144 mg/dL (206-381)
[2021-04-01 06:51] LABS: Partial Thromboplastin Time 27.1 SECONDS (22.3-36.8)
[2021-04-01 12:16] LABS: Glucose Point of Care 121 mg/dl (65-105)
--- NOTE | 2021-04-01 12:21 | PM.IMPN ---
Progress Note: A&P Assessment and Plan (1) Bowel obstruction: Qualifiers: Intestinal obstruction extent: unspecified extent Intestinal obstruction type: unspecified Qualified Code(s): K56.609 - Unspecified intestinal obstruction, unspecified as to partial versus complete obstruction Code(s): K56.609 - Unspecified intestinal obstruction, unspecified as to partial versus complete obstruction Status: Acute Assessment and Plan: The patient presented to the ER with back and abdominal pain, found to have bowel obstruction which may be due to diverticular stricture or even malignancy. She has been started on Zosyn. Surgery evaluated the patient is going to surgery this afternoon. She was started on PPN and electrolytes are being replaced. At this time, the patient is comfortable without any issues. Continue monitoring and appreciate input from GI and surgery. (2) Diverticulitis: Code(s): K57.92 - Diverticulitis of intestine, part unspecified, without perforation or abscess without bleeding Status: Acute Assessment and Plan: History of diverticulitis in the past. The patient is on IV Zosyn at this time for treatment of diverticulitis as possible cause of her obstruction. Continue monitoring. (3) Abnormal urinalysis: Code(s): R82.90 - Unspecified abnormal findings in urine Status: Acute Assessment and Plan: Urinalysis is abnormal however she has no symptoms of UTI. Believe it is a contamination. Urine culture shows no growth. UTI was ruled out. (4) Hypokalemia: Code(s): E87.6 - Hypokalemia Status: Acute Assessment and Plan: Potassium was low at 3.3. Will be replaced and monitored. Recheck after IV infusion. Magnesium normal at 2.0. (5) Hypertension: Code(s): I10 - Essential (primary) hypertension Status: Acute Assessment and Plan: Blood pressure stable this morning 124/61. Patient states she does not take any blood pressure medications because it makes her feel dizzy. Continue monitoring (6) Chronic back pain: Code(s): M54.9 - Dorsalgia, unspecified; G89.29 - Other chronic pain Status: Acute Assessment and Plan: No complaints today. Continue home medications. (7) Cognitive impairment: Code(s): R41.89 - Other symptoms and signs involving cognitive functions and awareness Status: Inactive Assessment and Plan: normal mood and affect. Continue monitoring with hospitalization. Time Spent With Patient Time with patient: 25 - 35 minutes Subjective Date/time seen: 04/01/21 12:21 Interval history: Date of service 04/01/21: The patient reports feeling well today, denies any pain or discomfort at this time. She is upset that she is NPO but she understands she is going to surgery later on today. She is having diarrhea from the bowel prep. She denies any nausea, vomiting, chest pain, shortness of breath, cough, fever, chills, leg swelling, calf pain or any other symptoms at this time. Review of Systems Review of Systems: All systems reviewed & are unremarkable except as noted in HPI and below Exam Narrative: Exam Narrative: General: 85-year-old woman sitting up in bed with daughters at bedside. Appears comfortable. In no acute distress. Skin: No jaundice or cyanosis. Good skin turgor. Neck: Full range of motion. Supple. Respiratory: Lungs are clear to auscultation bilaterally. No bony chest wall tenderness. Cardiovascular: The heart has a regular rate and rhythm without murmur. Lower extremities: No lower extremity
--- NOTE | 2021-04-01 13:09 | PCNFU ---
Nutrition Follow-Up Complete: Nutrition Diagnosis: Altered GI function as related to Diverticulitis as evidenced by clear liquids/PPN Nutrition Goal: Meet estimated nutritional needs Goal is in progress. Nutrition recommendation: Patient is currently NPO for surgery later today, but afterwards continue with PPN and clear liquids. Last recorded weight is 66.8 kg, which is 4lbs down since admission. Bowel Motility: Last documented today, patient has diarrhea. Patient is on miralax. Labs Reviewed: Alb(3.3), [id number]), K(3.3), Cr(0.6), Glu(123) Meds Noted:Zosyn 3.375gm, Zofran, Glucagon, Miralax, Simethicone, Clinimix, Lipids 20% Additional Notes: Skin is within normal limits, no cause of concern documented. Patient is consuming 25-50% of clear liquids. Patient is currently NPO, surgery is scheduled for this afternoon to remove her colon. Will monitor every Sunday and Sunday
--- NOTE | 2021-04-01 13:14 | PC.NURSE ---
to OR per bed with family at 1300.
--- NOTE | 2021-04-01 13:24 | WPDHPUPDATE1 ---
History and Physical Update Update Date/Time: 04/01/21 13:24 History and Physical has been reviewed, including an updated exam of the patient. There are NO changes in the patient's condition. Risks, benefits, and alternatives have been discussed and questions answered. Patient agrees to proceed with procedure.
--- NOTE | 2021-04-01 13:32 | PCNSR ---
On 04/01/21, the student,Clau Sheth, provided care and completed [facility] documentation on this patient. I have reviewed the student's documentation and agree with the findings.
[2021-04-01] MEDS: LACTATED RINGERS 1,000 ML 30 ML IV CONT ×2 (14:00→19:21)
--- NOTE | 2021-04-01 14:08 | WPDANESEPPF ---
Anes - Initial Pre Proc Eval Procedure: Operation Date: 04/01/21 14:30 Proposed Procedures p Hand Assisted Laparoscopic Sigmoid Colon Resection, Possible Open, Possible Colectomy - Agustin Powers DO Date/Time: 04/01/21 14:08 Surgeon: Kirti Hernandez PA-C Pre Op Diagnosis: Diverticulitis/bowel obstruction/hypokalemia Patient Data Age: 85 Gender: F Height: 1.57 m Weight: 66.8 kg Last Vital Signs Temp 36.8 C 04/01/21 13:21 Pulse 74 04/01/21 13:21 Resp 18 04/01/21 06:00 BP 137/61 04/01/21 13:21 Pulse Ox 97 04/01/21 13:21 Allergies Allergy/AdvReac Type Severity Reaction Status Date / Time metoprolol Allergy Unknown Dizziness Verified 04/01/21 13:20 Home Medications Medication Instructions Recorded Confirmed Type acetaminophen [Tylenol Arthritis 650 mg PO Q8H PRN #10 tablet 09/27/20 03/28/21 Rx Pain] Laboratory Tests 03/31/21 03/31/21 03/31/21 13:32 17:10 19:18 APTT Sodium Potassium 3.1 mmol/L L mmol/L (3.4-5.0) Chloride Carbon Dioxide Anion Gap BUN Creatinine Estim Creat Clear Calc Estimated GFR Glucose POC Capillary Glucose 119 mg/dl H mg/dl 112 mg/dl H mg/dl (65-105) (65-105) Calcium Phosphorus Magnesium 1.9 mg/dL mg/dL (1.6-2.3) Transferrin Total Bilirubin AST ALT Alkaline Phosphatase Total Protein Albumin Triglycerides 04/01/21 04/01/21 04/01/21 00:44 06:10 06:10 APTT 27.1 SECONDS SECONDS (22.3-36.8) Sodium 136 mmol/L L mmol/L (137-145) Potassium 3.3 mmol/L L mmol/L (3.4-5.0) Chloride 108 mmol/L H mmol/L (98-107) Carbon Dioxide 21 mmol/L L mmol/L (22-30) Anion Gap 7 mmol/L L mmol/L (8-16) BUN 10 mg/dL D mg/dL (7-17) Creatinine 0.60 mg/dL L mg/dL (0.7-1.0) Estim Creat Clear Calc 54 ml/min ml/min Estimated GFR > 60 (59 - ) Glucose 123 mg/dL H mg/dL (65-105) POC Capillary Glucose 132 mg/dl H mg/dl (65-105) Calcium 8.4 mg/dL mg/dL (8.4-10.2) Phosphorus 2.4 mg/dL L mg/dL (2.5-4.5) Magnesium 2.0 mg/dL mg/dL (1.6-2.3) Transferrin 144 mg/dL L mg/dL (206-381) Total Bilirubin 0.5 mg/dL mg/dL (0.2-1.3) AST 17 U/L U/L (14-36) ALT 13 U/L U/L (4-35) Alkaline Phosphatase 55 U/L U/L (38-126) Total Protein 6.0 g/dL L g/dL (6.3-8.2) Albumin 3.3 g/dL L g/dL (3.5-5.1) Triglycerides 85 mg/dL mg/dL (<150) 04/01/21 04/01/21 06:14 12:10 APTT Sodium Potassium Chloride Carbon Dioxide Anion Gap BUN Creatinine Estim Creat Clear Calc Estimated GFR Glucose POC Capillary Glucose 132 mg/dl H mg/dl 121 mg/dl H mg/dl (65-105) (65-105) Calcium Phosphorus Magnesium Transferrin Total Bilirubin AST ALT Alkaline Phosphatase Total Protein Albumin Triglycerides Patient hx anesthesia problems: none Family hx anesthesia problems: none [facility] Past Medical History Medical History (Updated 03/28/21 @ 23:06 by Kayleigh Triplett PA-C) Arthritis Chronic back pain Diverticulitis of intestine with abscess (03/2020) Gastroesophageal reflux disease Hypertension Not on medication as they cause her to feel dizzy. Memory impairment Transient ischemic attack (2003) Surgical History Surgical History History of cholecystectomy (10/30/11) History of hysterectomy History of to
--- NOTE | 2021-04-01 19:23 | W.PM.PROC2 ---
Procedure Note - Detailed Date of Procedure 04/01/21 Pre-op Diagnosis Sigmoid stricture, large bowel obstruction Post-op Diagnosis same Procedure Performed 1. Attempted hand assisted laparoscopic sigmoid colectomy 2. Converted to open sigmoid colectomy with end descending colostomy Surgeon Agustin Powers, Anesthesia general and local (0.5 % bupivicaine with epinephrine) Indications This is an 85-year-old woman who presented to the emergency department with abdominal pain and bloating. She has a prior history diverticulitis and had previously recovered with medical treatment alone. A CT was performed in the emergency department and this showed evidence a sigmoid stricture causing large bowel obstruction. This was likely due to diverticular disease but malignancy was also a possibility. Patient has previously refused colonoscopies and is refusing to have a colonoscopy again. She was having some bowel function and was gently prepped over a couple days with MiraLax and magnesium citrate. Decision was made to proceed with hand assisted laparoscopic sigmoid colectomy, possible open, possible ostomy. Findings Hand assisted laparoscopic sigmoid colectomy was attempted. Upon entering the abdomen laparoscopically, there were sigmoid adhesions to the left lower quadrant abdominal wall and pelvis. The adhesions extended down into the midline pelvis. Laparoscopic dissection was performed to mobilize the sigmoid colon on the way down to rectosigmoid junction. There still appeared to be significant adhesions around the upper rectum. I was able to come across the rectosigmoid junction with an echelon 60 mm stapler. I then attempted an end to end anastomosis. The anastomosis appeared very friable and when leak test was performed, there was clear air bubbles leaking around the anastomosis. I attempted to over sew the anastomosis both laparoscopically and open wound, but the anastomosis appeared too friable to repair. The and then chose to take down the anastomosis and performed an end descending colostomy. She was converted to open by extending the hand port incision caudally and the anastomosis was carefully inspected but did not appear to be healthy enough to heal. I then came across the upper rectum just beyond anastomosis with a contour stapler. An end descending colostomy was then performed. The sigmoid specimen was sent to the lab for pathology. The staple line was marked as distal. Description of Procedure Procedure as well as risks, benefits, and alternatives were discussed with the patient. Written consent was obtained and placed in chart prior to procedure. Patient was brought back to surgical suite. She was placed supine on operating table. Time-out was done to confirm patient and procedure. She was then intubated by the anesthesia department. She was placed in dorsal lithotomy position. Her abdomen was prepped and draped in sterile fashion using chlorhexidine prep, and her rectum and perirectal area was prepped and draped in sterile fashion using Betadine prep. A 7 cm incision was made centered on the umbilicus vertically using a 15 blade scalpel. Electrocautery was used for hemostasis and for dissection through Pa's fascia. The linea alba was then incised using electrocautery. The peritoneum was then entered using electrocautery and the fascial incision was extended throughout the length of skin incision. There were a few omental adhesions up to the left lower quadrant abdominal wall and these were carefully taken down using blunt dissection and electrocautery. I then placed the Jaquan wound protector and applied the GelPort with a 5 mm port placed through it. Carbon dioxide insufflation was used for pneumoperitoneum. The patient was placed in Trendelenburg position. 5 mm incision was made in the suprapubic region a 5 mm trocar was inserted under direct visualization another 5 mm incision was made in the right upper quadrant and a 5 mm
[2021-04-01] MEDS: ONDANSETRON INJ 4 MG/2 ML VIAL IV PUSH (19:37)
[2021-04-01] MEDS: HYDROmorphone HCL INJ (*CRX) 1 MG/ML SYR 0.25 MG IV PUSH ×3 (19:46→20:07)
--- NOTE | 2021-04-01 20:22 | SUR.PHASEI ---
2020 sbar faxed floor notified
[2021-04-01] MEDS: LACTATED RINGERS 1,000 ML 100 ML IV CONT (22:42)
[2021-04-01] MEDS: AMINO ACIDS 4.25%/D5W/LYTES/CA 2,000 ML 60 ML IV CONT (22:54)
[2021-04-01] MEDS: AMINO ACIDS 5%/D15W/E-LYTES/CA 2,000 ML with MULTIVITAMINS-12 INJ VIAL 1 2.5 ML, MULTIV... 60 ML IV CONT (23:14)
[2021-04-02] VITALS (16 sets, daily range): BP systolic 144–162; BP diastolic 52–69; PULSE 80–104; RESP 16–22; TEMP 36.3–37.6; O2SAT 92–96
[2021-04-02 00:09] LABS: Glucose Point of Care 163 mg/dl (65-105)
[2021-04-02] MEDS: MORPHINE SULFATE (*CRX) 4 MG/ML INJ IV PUSH ×2 (03:49→23:43)
[2021-04-02 05:08] LABS: Basophils Percent Auto 0.2 % (0.2-1.2); Hemoglobin 11.7 g/dL (12.0-15.0); Immature Granulocyte Percent A 0.7 % (0-0.5); Lymphocytes Absolute Auto 2.02 K/mm3 (0.9-3.2); Lymphocytes Percent Auto 14.3 % (18.3-44.2); Mean Corpuscular HGB Conc 33.4 g/dl (32-36); Mean Corpuscular Hemoglobin 28.1 pg (26-34); Mean Corpuscular Volume 84.1 fl (80-100); Mean Platelet Volume 10.7 fl (7.4-10.4); Monocytes Absolute Auto 1.2 K/mm3 (0.1-0.6); Monocytes Percent Auto 8.5 % (2.6-8.5); Neutrophils Absolute Auto 10.8 K/mm3 (1.3-6.7); Neutrophils Percent Auto 76.3 % (45.5-73.1); Platelet Count Result 236 k/mm3 (150-375); Red Blood Count 4.16 M/mm3 (4.2-5.4); Red Cell Distribution Width 13.5 % (11.5-14.5); White Blood Count 14.2 K/mm3 (4.5-10.0)
[2021-04-02 05:22] LABS: Albumin Level 2.8 g/dL (3.5-5.1); Anion Gap 8 mmol/L (8-16); Blood Urea Nitrogen 13 mg/dL (7-17); Calcium 8.2 mg/dL (8.4-10.2); Carbon Dioxide 24 mmol/L (22-30); Chloride 105 mmol/L (98-107); Estimated CRCL calculation 55 ml/min; Estimated Glomerular Filt Rate > 60; Glucose 133 mg/dL (65-110); Phosphorus 3.1 mg/dL (2.5-4.5); Potassium 3.3 mmol/L (3.4-5.0); Sodium 137 mmol/L (137-145)
[2021-04-02] MEDS: CENTRAL LINE FLUSH 10 ML IV PUSH ×3 (06:05→21:15)
[2021-04-02] MEDS: ENOXAPARIN 40 MG/0.4 ML SYRINGE SUB-Q (09:07)
[2021-04-02] MEDS: PANTOPRAZOLE SODIUM IV 40 MG VIAL IV PUSH (09:07)
[2021-04-02 11:42] LABS: Glucose Point of Care 124 mg/dl (65-105)
--- NOTE | 2021-04-02 11:43 | WPDANESPN ---
Anes - Prog Note Post-Op Date/Time: 04/02/21 11:43 Cardiovascular status: normal Respiratory status: normal Airway patency: baseline Mental status: baseline Post-Op hydration status: normal Vital Signs: Last Vital Signs Temp 36.4 C L 04/02/21 07:09 Pulse 87 04/02/21 10:00 Resp 18 04/02/21 08:00 BP 144/64 H 04/02/21 07:09 Pulse Ox 94 04/02/21 08:00 Pain Score (VAS): 0 I/O: Intake & Output 04/01/21 04/02/21 04/02/21 23:59 07:59 15:59 Intake Total 360 1165 Output Total 2075 620 Balance -1715 545 Laboratory Tests 04/02/21 04:54 04/02/21 04:54 04/01/21 04/02/21 04/02/21 12:10 00:04 04:54 WBC RBC Hgb Hct MCV MCH MCHC RDW Plt Count MPV Immature Gran % (Auto) Neut % (Auto) Lymph % (Auto) Ritchie % (Auto) Eos % (Auto) Baso % (Auto) Lymph # (Auto) Ritchie # (Auto) Eos # (Auto) Baso # (Auto) Abs Immat Gran (auto) Absolute Neuts (auto) Absolute Nucleated RBC Nucleated RBC % Sodium 137 Potassium 3.3 L Chloride 105 Carbon Dioxide 24 Anion Gap 8 BUN 13 Creatinine 0.60 L Estim Creat Clear Calc 55 Estimated GFR > 60 Glucose 133 H POC Capillary Glucose 121 H 163 H Calcium 8.2 L Phosphorus 3.1 Albumin 2.8 L 04/02/21 04/02/21 04:54 11:40 WBC 14.2 H RBC 4.16 L Hgb 11.7 L Hct 35.0 L MCV 84.1 MCH 28.1 MCHC 33.4 RDW 13.5 Plt Count 236 MPV 10.7 H Immature Gran % (Auto) 0.7 H Neut % (Auto) 76.3 H Lymph % (Auto) 14.3 L Ritchie % (Auto) 8.5 Eos % (Auto) 0.0 Baso % (Auto) 0.2 Lymph # (Auto) 2.02 Ritchie # (Auto) 1.2 H Eos # (Auto) 0.0 Baso # (Auto) 0.0 Abs Immat Gran (auto) 0.10 H Absolute Neuts (auto) 10.8 H Absolute Nucleated RBC 0.0 Nucleated RBC % 0.0 Sodium Potassium Chloride Carbon Dioxide Anion Gap BUN Creatinine Estim Creat Clear Calc Estimated GFR Glucose POC Capillary Glucose 124 H Calcium Phosphorus Albumin Post-procedural complaints: none Patient Feedback: Patient satisfied with anesthetic care.
--- NOTE | 2021-04-02 13:15 | PM.IMPN ---
Progress Note: A&P Assessment and Plan (1) Bowel obstruction: Qualifiers: Intestinal obstruction extent: unspecified extent Intestinal obstruction type: unspecified Qualified Code(s): K56.609 - Unspecified intestinal obstruction, unspecified as to partial versus complete obstruction Code(s): K56.609 - Unspecified intestinal obstruction, unspecified as to partial versus complete obstruction Status: Acute Assessment and Plan: The patient presented to the ER with back and abdominal pain, found to have bowel obstruction which was found to be from a sigmoid stricture in the large bowel. She has been continued on IV Zosyn. The patient was taken to surgery on 04/01/[address] 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 Patient was transferred to IMU for further monitoring due to the length of her surgery. She is stable at this time, NG tube in place, pain well controlled and appreciate Surgery's input. She was started on PPN and electrolytes are being replaced. Today POD #1, the patient is comfortable without any issues. Continue monitoring and appreciate input from GI and surgery. (2) Diverticulitis: Code(s): K57.92 - Diverticulitis of intestine, part unspecified, without perforation or abscess without bleeding Status: Acute Assessment and Plan: History of diverticulitis in the past. The patient is on IV Zosyn at this time for treatment of diverticulitis as possible cause of her obstruction. Continue monitoring. (3) Abnormal urinalysis: Code(s): R82.90 - Unspecified abnormal findings in urine Status: Acute Assessment and Plan: Urinalysis is abnormal however she has no symptoms of UTI. Believe it is a contamination. Urine culture shows no growth. UTI was ruled out. (4) Hypokalemia: Code(s): E87.6 - Hypokalemia Status: Acute Assessment and Plan: Potassium was low at 3.3. Will be replaced and monitored. (5) Hypertension: Code(s): I10 - Essential (primary) hypertension Status: Acute Assessment and Plan: Blood pressure slightly elevated 144/68, could be from pain after surgery. Patient states she does not take any blood pressure medications because it makes her feel dizzy. Continue monitoring. Will order IV Hydralazine if systolic BP >180, or Diastolic BP >100 (6) Chronic back pain: Code(s): M54.9 - Dorsalgia, unspecified; G89.29 - Other chronic pain Status: Acute Assessment and Plan: No complaints today. Continue home medications. (7) Cognitive impairment: Code(s): R41.89 - Other symptoms and signs involving cognitive functions and awareness Status: Inactive Assessment and Plan: normal mood and affect. Continue monitoring with hospitalization. Time Spent With Patient Time with patient: 25 - 35 minutes Subjective Date/time seen: 04/02/21 13:15 Interval history: Date of service 04/02/21: The patient reports feeling well after her surgery yesterday. She does have intermittent abdominal pain, which can be sharp and intense at times. Otherwise she is tolerating ice without any complications. She denies any nausea, vomiting, chest pain, shortness of breath, cough, fever, chills, leg swelling, calf pain or any other symptoms at this time. Review of Systems Review of Systems: All systems reviewed & are unremarkable except as noted in HPI and below Exam Narrative: Exam Narrative: General: 85-year-old woman sitting up in bed with daughter
[2021-04-02] MEDS: KCL 40 MEQ/D5/0.9% SOD CHL 1,000 ML 80 ML IV CONT (13:54)
--- NOTE | 2021-04-02 15:03 | PM.PNGS ---
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 Continue NG tube clinic max TPN, Stevens catheter. [facility]. Up in the chair. Supplement potassium. Probably DC Stevens tomorrow. (2) Hypokalemia: Code(s): E87.6 - Hypokalemia Status: Acute Assessment and Plan: Being supplemented with IV fluid in addition to the Clinimix. Subjective Subjective Date/Time Seen: 04/02/21 15:03 Post Op day: 1 Patient reports: still having pain, no flatus, no bowel movement and afebrile Review of Systems Review of Systems: All systems reviewed & are unremarkable except as noted in HPI and below Constitutional: Constitutional: Denies chills, Denies fever(s) and Denies headache(s) Cardiovascular: Cardiovascular: Denies chest pain and Denies dyspnea Respiratory: Respiratory: Denies cough and Denies dyspnea Gastrointestinal: Gastrointestinal: Reports as per HPI, Reports abdominal pain and Denies heartburn Exam Const: General: comfortable, no acute distress, alert, awake and confusion Nutritional Appearance: average body habitus Orientation/consciousness: confusion Resp: Effort & Inspection: normal respiratory effort Auscultation: clear to auscultation bilaterally Cardio: Rate: regular rate Rhythm: regular rhythm GI: Inspection: non-distended, incision ( Dressing dry and intact, GUDELIA output serosanguineous) and other ( colostomy pink and healing) GI Palp: Yes Soft to palpation, Yes Tenderness to palpation present (GI), No Guarding due to palpation present (GI) and No Rebound tenderness present Auscultation: absent bowel sounds Neuro: General: moves all extremities, no focal motor deficits, CN's II-XI intact bilaterally and confusion Cranial nerves: Yes facial symmetry and Yes Midline tongue present Speech: normal speech Gait exam (Neuro): Unable to assess gait Extrem: General: no calf tenderness and no edema Objective Data Vital Signs Vital Signs: Vital Signs - 24 hr 04/01/21 19:21 04/01/21 19:35 04/01/21 19:50 Temperature 36.3 C L Pulse Rate 74 78 77 Respiratory Rate 22 H 18 18 Blood Pressure 109/67 173/96 H 118/66 Pulse Oximetry 96 100 98 04/01/21 20:05 04/01/21 20:20 04/01/21 20:35 Temperature Pulse Rate 75 74 71 Respiratory Rate 16 18 16 Blood Pressure 118/57 L 132/51 L 130/55 L Pulse Oximetry 94 93 95 04/01/21 21:15 04/01/21 21:27 04/01/21 22:00 Temperature 36.4 C 36.4 C 36.4 C Pulse Rate 79 79 77 Respiratory Rate 16 16 16 Blood Pressure 123/44 L 123/44 L 125/53 L Pulse Oximetry 94 94 95 04/01/21 23:00 04/02/21 00:00 04/02/21 02:00 Temperature 36.3 C L Pulse Rate 90 104 H 80 Respiratory Rate 16 Blood Pressure 128/59 L Pulse Oximetry 95 95 04/02/21 04:00 04/02/21 05:27 04/02/21 06:00 Temperature 36.3 C L Pulse Rate 82 86 83 Respiratory Rate 16 Blood Pressure 147/52 H Pulse Oximetry 96 04/02/21 07:09 04/02/21 08:00 04/02/21 10:00 Temperature 36.4 C L Pulse Rate 82 82 87 Respiratory Rate 18 18 Blood Pressure 144/64 H Pulse Oximetry 94 94 04/02/21 12:00 04/02/21 13:05 Temperature 36.9 C Pulse Rate 85 87 Respiratory Rate 22 H Blood Pressure 162/62 H Pulse Oximetry 96 Intake/Output Intake/Output: Intake & Output 03/30/21 03/31/21 04/01/21 04/02/21 23:59 23:59 23:59 23:59 Intake Total 3590 3660 2660 1165 Output Total 2075 620 Balance 3590 3660 585 545 Meds/Results Medications: Active Medications Generic Name Dose Route Start Last Admin Trade Name Freq PRN Reason Stop Dose Admin Dextrose 12.5 gm 03/31/21 11:37 Dextrose 50% 25 Gm/50 Ml Syringe IV PUSH PRN PRN Hypoglycemia Protocol Enoxaparin Sodium 40 mg 04/02/21 09:00 04/02/21 09:07 Enoxaparin 40 Mg/0.4 Ml Syringe SUB-Q
[2021-04-02] MEDS: ONDANSETRON INJ 4 MG/2 ML VIAL IV PUSH (16:19)
[2021-04-02] MEDS: FAT EMULSIONS IV 20% 250 ML 20.83 ML IVPB (16:57)
[2021-04-02 17:55] LABS: Glucose Point of Care 127 mg/dl (65-105)
[2021-04-02] MEDS: FAMOTIDINE 20 MG/2 ML VIAL IV PUSH (21:14)
[2021-04-03] VITALS (9 sets, daily range): BP systolic 131–168; BP diastolic 49–68; PULSE 62–107; RESP 18–20; TEMP 36.3–37.7; O2SAT 94–99
[2021-04-03 00:04] LABS: Glucose Point of Care 139 mg/dl (65-105)
[2021-04-03] MEDS: KCL 40 MEQ/D5/0.9% SOD CHL 1,000 ML 80 ML IV CONT (02:14)
--- NOTE | 2021-04-03 02:23 | PC.NURSE ---
Patient becoming more confused. Pulled out NG tube, attempting to get out of bed to go to the bathroom. 16 FR NG inserted to right nare without difficulty. KUB ordered. NG at 60cm at the nare.
[2021-04-03] MEDS: AMINO ACIDS 5%/D15W/E-LYTES/CA 2,000 ML with MULTIVITAMINS-12 INJ VIAL 1 2.5 ML, MULTIV... 60 ML IV CONT (05:21)
[2021-04-03] MEDS: CENTRAL LINE FLUSH 10 ML IV PUSH (05:30)
[2021-04-03 05:53] LABS: Hematocrit 33.8 % (37.0-47.0); Hemoglobin 11.1 g/dL (12.0-15.0); Mean Corpuscular HGB Conc 32.8 g/dl (32-36); Mean Corpuscular Volume 85.1 fl (80-100); Mean Platelet Volume 10.6 fl (7.4-10.4); Platelet Count Result 219 k/mm3 (150-375); Red Blood Count 3.97 M/mm3 (4.2-5.4); Red Cell Distribution Width 13.6 % (11.5-14.5)
[2021-04-03 06:09] LABS: Anion Gap 5 mmol/L (8-16); Blood Urea Nitrogen 11 mg/dL (7-17); Calcium 8.2 mg/dL (8.4-10.2); Carbon Dioxide 27 mmol/L (22-30); Chloride 104 mmol/L (98-107); Estimated CRCL calculation 66 ml/min; Estimated Glomerular Filt Rate > 60; Glucose 129 mg/dL (65-110); Phosphorus 2.1 mg/dL (2.5-4.5); Potassium 3.8 mmol/L (3.4-5.0); Sodium 136 mmol/L (137-145)
[2021-04-03] MEDS: ENOXAPARIN 40 MG/0.4 ML SYRINGE SUB-Q (09:13)
[2021-04-03] MEDS: FAMOTIDINE 20 MG/2 ML VIAL IV PUSH (09:22)
--- NOTE | 2021-04-03 10:34 | PM.IMPN ---
Progress Note: A&P Assessment and Plan (1) Confusion: Code(s): R41.0 - Disorientation, unspecified Status: Acute Assessment and Plan: She is stable at this time but very confused, believed due to underlying dementia and sundowning. She pulled NG tube out overnight and Stevens catheter was removed. Labs are all stable at this time. the nurse tells me that she has not been sleeping the last few nights so this could be the cause of her confusion. Surgery will put orders for PRN Trazodone to help with sleep overnight. Continue monitoring. (2) Bowel obstruction: Qualifiers: Intestinal obstruction extent: unspecified extent Intestinal obstruction type: unspecified Qualified Code(s): K56.609 - Unspecified intestinal obstruction, unspecified as to partial versus complete obstruction Code(s): K56.609 - Unspecified intestinal obstruction, unspecified as to partial versus complete obstruction Status: Acute Assessment and Plan: The patient presented to the ER with back and abdominal pain, found to have bowel obstruction which was found to be from a sigmoid stricture in the large bowel. She has been continued on IV Zosyn. The patient was taken to surgery on 04/01/[address] 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 Patient was transferred to IMU for further monitoring due to the length of her surgery. Continued on PPN and electrolytes are being replaced. IV Zosyn continued by Surgery at this time. Today POD #2, the patient is comfortable without any issues. Continue monitoring and appreciate input from GI and surgery. (3) Diverticulitis: Code(s): K57.92 - Diverticulitis of intestine, part unspecified, without perforation or abscess without bleeding Status: Acute Assessment and Plan: History of diverticulitis in the past. The patient is on IV Zosyn at this time for treatment of diverticulitis as possible cause of her obstruction. Continue monitoring. (4) Abnormal urinalysis: Code(s): R82.90 - Unspecified abnormal findings in urine Status: Acute Assessment and Plan: Urinalysis is abnormal however she has no symptoms of UTI. Believe it is a contamination. Urine culture shows no growth. UTI was ruled out. (5) Hypokalemia: Code(s): E87.6 - Hypokalemia Status: Acute Assessment and Plan: Potassium was low at 3.3. Will be replaced and monitored. (6) Hypertension: Code(s): I10 - Essential (primary) hypertension Status: Acute Assessment and Plan: Blood pressure slightly elevated 151/64 could be from pain after surgery. Patient states she does not take any blood pressure medications because it makes her feel dizzy. Continue monitoring. Will order IV Hydralazine if systolic BP >180, or Diastolic BP >100 (7) Chronic back pain: Code(s): M54.9 - Dorsalgia, unspecified; G89.29 - Other chronic pain Status: Acute Assessment and Plan: No complaints today. Continue home medications. Time Spent With Patient Time with patient: 25 - 35 minutes Subjective Date/time seen: 04/03/21 10:34 Interval history: Date of service 7/18/21: The patient reports feeling well, but is confused today. She reports intermittent abdominal pain. Otherwise she is tolerating ice without any complications. She denies any nausea, vomiting, chest pain, shortness of breath, cough, fever, chills, leg swelling, calf pain or any other symptoms at this time. Review of Systems Review of Sy
[2021-04-03 10:42] LABS: Triglycerides 120 mg/dL (<150)
[2021-04-03] MEDS: SODIUM PHOSPHATE 20 MM in DEXTROSE 5% IN WATER 250 ML 50 MM IVPB (11:25)
--- NOTE | 2021-04-03 11:48 | PM.PNGS ---
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 Will leave NG tube out for now. If patient develops signs of ileus, may need to be replaced. Keep NPO except ice chips. Potassium has improved. Continue IV Zosyn antibiotics. Will DC Stevens catheter today. Will try at low dose of trazodone 25 mg at HS p.r.n. sleep. (2) Memory impairment: Code(s): R41.3 - Other amnesia Status: Chronic Subjective Subjective Date/Time Seen: 04/03/21 11:48 Post Op day: 2 Patient reports: no new complaints, pain is less, no flatus, no bowel movement and afebrile Interval history: Patient pulled NG tube out last night. It was replaced. She pulled out again at 7:00 a.m. this morning. It has been left out since then. Patient denies any nausea. No vomiting. She is in good spirits this morning. Patient's daughter tells me that patient has not been sleeping at all and the skin say agitated. Daughter requests a mild sleeping pill. Review of Systems Review of Systems: All systems reviewed & are unremarkable except as noted in HPI and below Constitutional: Constitutional: Denies body ache(s), Denies fever(s) and Denies headache(s) Cardiovascular: Cardiovascular: Denies chest pain and Denies dyspnea Respiratory: Respiratory: Denies cough and Denies dyspnea Gastrointestinal: Gastrointestinal: Reports as per HPI, Reports abdominal pain, Denies bloating, Denies heartburn, Denies nausea and Denies vomiting Neurologic: Denies confusion and Denies headache(s) Exam Const: General: cooperative, comfortable, no acute distress, alert, awake and confusion Nutritional Appearance: overweight Orientation/consciousness: confusion GI: Inspection: non-distended, incision ( Dry and intact, healing) and other ( stoma pink and healthy minimal edema) GI Palp: Yes Soft to palpation, Yes Tenderness to palpation present (GI), No Guarding due to palpation present (GI) and No Rebound tenderness present Auscultation: absent bowel sounds Extrem: General: no calf tenderness and no edema Objective Data Vital Signs Vital Signs: Vital Signs - 24 hr 04/02/21 12:00 04/02/21 13:05 04/02/21 14:00 Temperature 36.9 C Pulse Rate 85 87 98 Respiratory Rate 22 H Blood Pressure 162/62 H Pulse Oximetry 96 04/02/21 16:00 04/02/21 18:00 04/02/21 18:08 Temperature 37.6 C H Pulse Rate 100 94 97 Respiratory Rate 20 Blood Pressure 159/60 H Pulse Oximetry 94 04/02/21 20:00 04/02/21 22:00 04/03/21 00:00 Temperature 36.5 C Pulse Rate 96 100 96 Respiratory Rate 16 Blood Pressure 156/69 H Pulse Oximetry 92 04/03/21 02:00 04/03/21 03:53 04/03/21 04:00 Temperature 36.4 C L Pulse Rate 105 H 103 H 95 Respiratory Rate 18 Blood Pressure 151/64 H Pulse Oximetry 95 04/03/21 06:00 04/03/21 08:00 Temperature Pulse Rate 93 88 Respiratory Rate 18 Blood Pressure Pulse Oximetry 95 Intake/Output Intake/Output: Intake & Output 03/31/21 04/01/21 04/02/21 04/03/21 23:59 23:59 23:59 23:59 Intake Total 3660 2910 1330 3140 Output Total 2075 2550 2550 Balance 3660 835 -1220 590 Meds/Results Medications: Active Medications Generic Name Dose Route Start Last Admin Trade Name Freq PRN Reason Stop Dose Admin Dextrose 12.5 gm 03/31/21 11:37 Dextrose 50% 25 Gm/50 Ml Syringe IV PUSH PRN PRN Hypoglycemia Protocol Enoxaparin Sodium 40 mg 04/02/21 09:00 04/03/21 09:13 Enoxaparin 40 Mg/0.4 Ml Syringe SUB-Q 40 mg DAILY SPEEDY Administration Famotidine 20 mg 04/02/21 21:00 04/03/21 09:22 Famotidine 20 Mg/2 Ml Vial IV PUSH 20 mg Q12HR SPEEDY Administration Glucagon 1 mg 03/31/21 11:37 Glucagon For Inj 1 Mg Vial IM PRN PRN Hypoglycemia Protocol Glucose 15
[2021-04-03 12:09] LABS: Glucose Point of Care 123 mg/dl (65-105)
[2021-04-03] MEDS: FAT EMULSIONS IV 20% 250 ML 20.83 ML IVPB (12:41)
--- NOTE | 2021-04-03 14:52 | PCOTNOTE ---
7.18, 14:45 : Attempted to evaluate by occupational therapy. Pt. refused. Spoke with pt.'s daughter separately, reported that pt. self- report of PLOF is inaccurate, due to cognitive decline, and would like pt. to receive short term care rehab for recent surgery, and then move pt. to longer term assisted living. Spoke with nurse and care coordination regarding family's plan. Pt. us unaware of this plan.
[2021-04-03 20:31] LABS: Glucose Point of Care 129 mg/dl (65-105)
--- NOTE | 2021-04-03 21:04 | PC.NURSE ---
This patient, Pari Perry, was transferred to [ ] on 04/03/21 at 2104. Personal belongings sent with patient. Report given to [ ]. Appropriate documentation sent with patient. report given Alfonso DARRYL
[2021-04-04] MEDS: FAMOTIDINE 20 MG/2 ML VIAL IV PUSH ×3 (05:40→20:07)
[2021-04-04 06:57] LABS: INR 1.2; Prothrombin Time 14.8 Seconds (11.1-14.7)
[2021-04-04 07:05] LABS: Alanine Aminotransferase 10 U/L (4-35); Albumin Level 3.1 g/dL (3.5-5.1); Alkaline Phosphatase 65 U/L (38-126); Anion Gap 6 mmol/L (8-16); Aspartate Amino Transferase 26 U/L (14-36); Bilirubin,Total 0.9 mg/dL (0.2-1.3); Blood Urea Nitrogen 9 mg/dL (7-17); Calcium 8.1 mg/dL (8.4-10.2); Carbon Dioxide 25 mmol/L (22-30); Chloride 104 mmol/L (98-107); Estimated CRCL calculation 80 ml/min; Estimated Glomerular Filt Rate > 60; Glucose 91 mg/dL (65-110); Magnesium 2.2 mg/dL (1.6-2.3); Phosphorus 3.2 mg/dL (2.5-4.5); Potassium 4.2 mmol/L (3.4-5.0); Sodium 135 mmol/L (137-145)
[2021-04-04 07:31] LABS: Transferrin 120 mg/dL (206-381)
[2021-04-04 08:00] VITALS: BP 140/52; PULSE 90; RESP 20; TEMP 36.3; O2SAT 93
[2021-04-04 08:26] LABS: Basophils Absolute Auto 0.1 K/mm3 (0.0-0.1); Basophils Percent Auto 0.7 % (0.2-1.2); Eosinophils Absolute Auto 0.4 K/mm3 (0-0.3); Eosinophils Percent Auto 3.6 % (0-4.4); Hematocrit 34.3 % (37.0-47.0); Hemoglobin 10.8 g/dL (12.0-15.0); Immature Granulocyte Absolute 0.18 K/mm3 (0.00-0.031); Immature Granulocyte Percent A 1.5 % (0-0.5); Lymphocytes Absolute Auto 2.52 K/mm3 (0.9-3.2); Lymphocytes Percent Auto 20.5 % (18.3-44.2); Mean Corpuscular HGB Conc 31.5 g/dl (32-36); Mean Corpuscular Hemoglobin 27.4 pg (26-34); Mean Corpuscular Volume 87.1 fl (80-100); Mean Platelet Volume 10.6 fl (7.4-10.4); Monocytes Absolute Auto 0.8 K/mm3 (0.1-0.6); Monocytes Percent Auto 6.7 % (2.6-8.5); Neutrophils Absolute Auto 8.2 K/mm3 (1.3-6.7); Platelet Count Result 240 k/mm3 (150-375); Red Blood Count 3.94 M/mm3 (4.2-5.4); Red Cell Distribution Width 13.7 % (11.5-14.5); White Blood Count 12.3 K/mm3 (4.5-10.0)
[2021-04-04] MEDS: KCL 40 MEQ/D5/0.9% SOD CHL 1,000 ML 80 ML IV CONT (10:05)
[2021-04-04] MEDS: ENOXAPARIN 40 MG/0.4 ML SYRINGE SUB-Q (10:06)
--- NOTE | 2021-04-04 11:21 | PM.PNGS ---
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 Will leave PICC line out and stop TPN. Start liquids today. Continue up in chair and ambulation as tolerated. (2) Confusion: Code(s): R41.0 - Disorientation, unspecified Status: Acute Assessment and Plan: Pulled out PICC line. Minimize narcotics as well as drains and tubes. (3) Memory impairment: Code(s): R41.3 - Other amnesia Status: Chronic Subjective Subjective Date/Time Seen: 04/04/21 11:21 Post Op day: 3 Patient reports: no new complaints, feels better ( Slept better with trazodone) and pain is less Interval history: patient pulled out PICC line this morning. Exam Const: General: confusion Nutritional Appearance: overweight Orientation/consciousness: confusion GI: Inspection: non-distended, incision ( Dry and healing well) and other ( stoma a little dusky but viable; flatus in stoma bag) GI Palp: Yes Soft to palpation and Yes Tenderness to palpation present (GI) ( less tender) Auscultation: Hypoactive bowel sounds present Objective Data Vital Signs Vital Signs: Vital Signs - 24 hr 04/03/21 16:50 04/03/21 19:41 04/03/21 21:10 Temperature 36.3 C L 36.9 C 37.7 C H Pulse Rate 62 107 H 106 H Respiratory Rate 20 20 18 Blood Pressure 131/49 L 148/61 H 168/68 H Pulse Oximetry 99 95 94 04/04/21 08:00 Temperature 36.3 C L Pulse Rate 90 Respiratory Rate 20 Blood Pressure 140/52 L Pulse Oximetry 93 Intake/Output Intake/Output: Intake & Output 04/01/21 04/02/21 04/03/21 04/04/21 23:59 23:59 23:59 23:59 Intake Total 2910 1330 4190 Output Total 2075 2550 3350 Balance 835 -1220 840 Meds/Results Medications: Active Medications Generic Name Dose Route Start Last Admin Trade Name Freq PRN Reason Stop Dose Admin Dextrose 12.5 gm 03/31/21 11:37 Dextrose 50% 25 Gm/50 Ml Syringe IV PUSH PRN PRN Hypoglycemia Protocol Enoxaparin Sodium 40 mg 04/02/21 09:00 04/04/21 10:06 Enoxaparin 40 Mg/0.4 Ml Syringe SUB-Q 40 mg DAILY SPEEDY Administration Famotidine 20 mg 04/02/21 21:00 04/04/21 10:06 Famotidine 20 Mg/2 Ml Vial IV PUSH 20 mg Q12HR SPEEDY Administration Glucagon 1 mg 03/31/21 11:37 Glucagon For Inj 1 Mg Vial IM PRN PRN Hypoglycemia Protocol Glucose 15 gm 03/31/21 11:37 Glucose Oral Gel 15 Gm Of Glucse In 37.5 Gm Tube PO PRN PRN Hypoglycemia Protocol Hydralazine HCl 10 mg 04/02/21 14:10 Hydralazine Hcl 20 Mg/Ml Vial IV PUSH Q8H PRN Blood Pressure - High Piperacillin/Tazobactam/Dextrose 3.375 gm in 50 mls @ 100 mls/hr 03/28/21 18:00 04/04/21 08:16 Zosyn 3.375 Gm/D5w 50ml Pm IVPB Not Given Q6HR SPEEDY Dextrose 1,000 mls @ 50 mls/hr 03/31/21 11:37 Dextrose 10% IV CONT .Q20H PRN if PN is interrupted Dextrose 1,000 mls @ 100 mls/hr 03/31/21 11:37 Dextrose 5% 1,000 Ml IVPB PRN PRN Hypoglycemia Protocol Potassium Chloride/Dextrose/Sod Cl 1,000 mls @ 80 mls/hr 04/02/21 11:00 04/04/21 10:05 Kcl 40 Meq/D5ns IV CONT 80 mls/hr .[id number] SPEEDY Administration Insulin Human Regular 0 units 03/31/21 12:00 04/04/21 08:16 Insulin Human Regular (*Bkc) 100 Units/Ml SUB-Q Not Given Q6HR SPEEDY Protocol Morphine Sulfate 2 mg 04/01/21 20:15 Morphine Sulfate (*Crx) 2 Mg/Ml Inj IV PUSH Q2H PRN Pain Rated 4-6 Morphine Sulfate 4 mg 04/01/21 20:15 04/02/21 23:43 Morphine Sulfate (*Crx) 4 Mg/Ml Inj IV PUSH 4 mg Q2H PRN Administration Pain Rated 7-10 Ondansetron HCl 4 mg 03/30/21 06:08 04/02/21 16:19 Ondansetron Inj 4 Mg/2 Ml Vial IV PUSH 4 mg Q6H PRN Administration Nausea And Vomiting Trazodone HCl 25 mg 04/03/21 10:53
[2021-04-04 13:08] LABS: Glucose Point of Care 94 mg/dl (65-105)
--- NOTE | 2021-04-04 14:54 | PM.IMPN ---
Progress Note: A&P Assessment and Plan (1) Bowel obstruction: Qualifiers: Intestinal obstruction extent: unspecified extent Intestinal obstruction type: unspecified Qualified Code(s): K56.609 - Unspecified intestinal obstruction, unspecified as to partial versus complete obstruction Code(s): K56.609 - Unspecified intestinal obstruction, unspecified as to partial versus complete obstruction Status: Acute Assessment and Plan: The patient presented to the ER with back and abdominal pain, found to have bowel obstruction which was found to be from a sigmoid stricture in the large bowel. She has been continued on IV Zosyn. The patient was taken to surgery on 04/04/[address] 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 04/04/21- Surgery placed pt on Clear Liquid Diet and advance as tolerated. Patient having some heartburn and nausea. Will give p.o. Tums and IV Zofran once the patient gets a new IV in place. Surgery is continuing IV Zosyn Today POD #3, the patient is comfortable without any issues. Continue monitoring and appreciate input from GI and surgery. (2) Confusion: Code(s): R41.0 - Disorientation, unspecified Status: Acute Assessment and Plan: Believe due to underlying dementia and hospitalization. Labs are all stable at this time. The nurse tells me that she has not been sleeping the last few nights so this could be the cause of her confusion. Surgery will put orders for PRN Trazodone to help with sleep overnight. Patient did sleep last night and is less confused today. Continue monitoring. (3) Diverticulitis: Code(s): K57.92 - Diverticulitis of intestine, part unspecified, without perforation or abscess without bleeding Status: Acute Assessment and Plan: History of diverticulitis in the past. The patient is on IV Zosyn at this time for treatment of diverticulitis as possible cause of her obstruction. Continue monitoring. (4) Abnormal urinalysis: Code(s): R82.90 - Unspecified abnormal findings in urine Status: Acute Assessment and Plan: Urinalysis is abnormal however she has no symptoms of UTI. Believe it is a contamination. Urine culture shows no growth. UTI was ruled out. (5) Hypokalemia: Code(s): E87.6 - Hypokalemia Status: Acute Assessment and Plan: Potassium Normal. (6) Hypertension: Code(s): I10 - Essential (primary) hypertension Status: Acute Assessment and Plan: Blood pressure slightly elevated 140/52. Patient states she does not take any blood pressure medications because it makes her feel dizzy. Continue monitoring. Will order IV Hydralazine if systolic BP >180, or Diastolic BP >100. (7) Chronic back pain: Code(s): M54.9 - Dorsalgia, unspecified; G89.29 - Other chronic pain Status: Acute Assessment and Plan: No complaints today. Continue home medications. Time Spent With Patient Time with patient: 25 - 35 minutes Subjective Date/time seen: 04/04/21 14:54 Interval history: Date of service 04/04/21: The patient reports not feeling very well. She is having some acid reflux, and nausea. She is having some abdominal discomfort but it is not bad . She denies any vomiting, chest pain, shortness of breath, cough, fever, chills, leg swelling, calf pain or any other symptoms at this time. Review of Systems Review of Systems: All systems reviewed & are unremarkable except as noted in HPI and below Exam Na
[2021-04-04] MEDS: CALCIUM CARBONATE (TUMS) 500 MG (200 MG ELEMENTAL) PO (15:18)
[2021-04-04 16:00] VITALS: BP 146/60; PULSE 92; RESP 20; TEMP 36.6; O2SAT 94
[2021-04-04] MEDS: ONDANSETRON INJ 4 MG/2 ML VIAL IV PUSH (16:09)
[2021-04-04] MEDS: PANTOPRAZOLE SODIUM IV 40 MG VIAL IV PUSH (17:40)
[2021-04-04 18:00] LABS: Glucose Point of Care 117 mg/dl (65-105)
[2021-04-04 22:00] VITALS: BP 137/52; PULSE 94; RESP 18; TEMP 36.4; O2SAT 95
[2021-04-05] MEDS: KCL 40 MEQ/D5/0.9% SOD CHL 1,000 ML 80 ML IV CONT ×2 (00:45→15:19)
[2021-04-05 06:00] VITALS: BP 144/61; PULSE 86; RESP 18; TEMP 36.4; O2SAT 95
[2021-04-05 06:32] LABS: Basophils Absolute Auto 0.1 K/mm3 (0.0-0.1); Basophils Percent Auto 0.7 % (0.2-1.2); Eosinophils Absolute Auto 0.4 K/mm3 (0-0.3); Eosinophils Percent Auto 3.6 % (0-4.4); Hematocrit 33.9 % (37.0-47.0); Hemoglobin 10.7 g/dL (12.0-15.0); Immature Granulocyte Absolute 0.23 K/mm3 (0.00-0.031); Lymphocytes Absolute Auto 2.65 K/mm3 (0.9-3.2); Lymphocytes Percent Auto 22.6 % (18.3-44.2); Mean Corpuscular HGB Conc 31.6 g/dl (32-36); Mean Corpuscular Hemoglobin 27.9 pg (26-34); Mean Corpuscular Volume 88.5 fl (80-100); Mean Platelet Volume 10.6 fl (7.4-10.4); Monocytes Percent Auto 8.1 % (2.6-8.5); Neutrophils Absolute Auto 7.4 K/mm3 (1.3-6.7); Platelet Count Result 275 k/mm3 (150-375); Red Blood Count 3.83 M/mm3 (4.2-5.4); Red Cell Distribution Width 13.8 % (11.5-14.5); White Blood Count 11.7 K/mm3 (4.5-10.0)
[2021-04-05 06:40] LABS: Glucose Point of Care 98 mg/dl (65-105)
[2021-04-05 06:49] LABS: Anion Gap 6 mmol/L (8-16); Blood Urea Nitrogen 7 mg/dL (7-17); Calcium 8.3 mg/dL (8.4-10.2); Carbon Dioxide 28 mmol/L (22-30); Chloride 103 mmol/L (98-107); Estimated CRCL calculation 56 ml/min; Estimated Glomerular Filt Rate > 60; Glucose 104 mg/dL (65-110); Magnesium 2.2 mg/dL (1.6-2.3); Potassium 3.9 mmol/L (3.4-5.0); Sodium 137 mmol/L (137-145)
[2021-04-05] MEDS: ENOXAPARIN 40 MG/0.4 ML SYRINGE SUB-Q (08:51)
[2021-04-05] MEDS: FAMOTIDINE 20 MG/2 ML VIAL IV PUSH (08:51)
--- NOTE | 2021-04-05 10:38 | PM.IMPN ---
Progress Note: A&P Assessment and Plan (1) Bowel obstruction: Qualifiers: Intestinal obstruction extent: unspecified extent Intestinal obstruction type: unspecified Qualified Code(s): K56.609 - Unspecified intestinal obstruction, unspecified as to partial versus complete obstruction Code(s): K56.609 - Unspecified intestinal obstruction, unspecified as to partial versus complete obstruction Status: Acute Assessment and Plan: The patient presented to the ER with back and abdominal pain, found to have bowel obstruction which was found to be from a sigmoid stricture in the large bowel. She has been continued on IV Zosyn. The patient was taken to surgery on 04/04/[address] 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 04/05/21- POD #4- Surgery advanced to Full Liquid diet and advance as tolerated.No symptoms at this time. Surgery is continuing IV Zosyn Continue monitoring and appreciate input from GI and surgery. (2) Confusion: Code(s): R41.0 - Disorientation, unspecified Status: Acute Assessment and Plan: Believe due to underlying dementia and hospitalization. Labs are all stable at this time. The nurse tells me that she has not been sleeping the last few nights so this could be the cause of her confusion. Surgery will put orders for PRN Trazodone to help with sleep overnight. Patient did sleep last night and is less confused today. Continue monitoring. (3) Diverticulitis: Code(s): K57.92 - Diverticulitis of intestine, part unspecified, without perforation or abscess without bleeding Status: Acute Assessment and Plan: History of diverticulitis in the past. The patient is on IV Zosyn at this time for treatment of diverticulitis as possible cause of her obstruction. Continue monitoring. (4) Abnormal urinalysis: Code(s): R82.90 - Unspecified abnormal findings in urine Status: Acute Assessment and Plan: Urinalysis is abnormal however she has no symptoms of UTI. Believe it is a contamination. Urine culture shows no growth. UTI was ruled out. (5) Hypokalemia: Code(s): E87.6 - Hypokalemia Status: Acute Assessment and Plan: Potassium Normal. (6) Hypertension: Code(s): I10 - Essential (primary) hypertension Status: Acute Assessment and Plan: Blood pressure slightly elevated 144/61. Patient states she does not take any blood pressure medications because it makes her feel dizzy. Continue monitoring. Will order IV Hydralazine if systolic BP >180, or Diastolic BP >100. (7) Chronic back pain: Code(s): M54.9 - Dorsalgia, unspecified; G89.29 - Other chronic pain Status: Acute Assessment and Plan: No complaints today. Continue home medications. Time Spent With Patient Time with patient: 25 - 35 minutes Subjective Date/time seen: 04/05/21 10:38 Interval history: Date of service 04/05/21: The patient reports feeling well, just tired. She denies anymore nausea, acid reflux or abdominal discomfort. She denies any vomiting, chest pain, shortness of breath, cough, fever, chills, leg swelling, calf pain or any other symptoms at this time. Review of Systems Review of Systems: All systems reviewed & are unremarkable except as noted in HPI and below Exam Narrative: Exam Narrative: General: 85-year-old woman sitting up in bed watching TV, appears comfortable. In no acute distress. Skin: No jaundice or cyanosis. Good skin turgor. Neck
--- NOTE | 2021-04-05 10:50 | PCNFU ---
Nutrition Follow-Up Complete: Altered GI function as related to Diverticulitis as evidenced by clear liquids/PPN Goal: Meet estimated nutritional needs Patient is progressing towards goal. We will continue current goal. Pt current nutrition is Full liquids. Last recorded weight is 71.8 kg, up from 66.3 kg. Bowel Motility:ostomy Labs Reviewed:Cr 0.6,Hct 33.9, Hgb 10.7 Meds Noted:Zosyn,Glucagon, Miralax, Tums, Lovenox, KCL, Morphine. Additional Notes: Patient seen today for nutrition follow up. 04/04-colostomy. Patient drinking liquids when entered the room. Diet order has been advanced to full liquids. Patient is hungry and asking for chicken. No nausea reported today. PPN has been discontinued. Agree with diet orders. Will monitor every 3 days.
--- NOTE | 2021-04-05 11:27 | PM.PNGS ---
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 Tolerating clear liquids well. Pain well-controlled. Will advance to full liquids. Encouraged increasing ambulation and activity. PT following. Pathology pending. (2) Confusion: Code(s): R41.0 - Disorientation, unspecified Status: Acute Assessment and Plan: Improving some. Family at the bedside helping with orientation/confusion. Has not required any narcotics since 04/02, minimize use. (3) Memory impairment: Code(s): R41.3 - Other amnesia Status: Chronic Additional Plan I have discussed the case and plan of care with Dr. Morales. Subjective Subjective Date/Time Seen: 04/05/21 11:27 Patient reports: no new complaints, pain is less, tolerating liquids well, flatus (+ostomy output) and afebrile Interval history: Patient seen today and feeling well. No specific complaints. Good amount of gas and liquid panchal output an ostomy bag. Seems less confused today. Review of Systems Review of Systems: All systems reviewed & are unremarkable except as noted in HPI and below Constitutional: Constitutional: Reports as per HPI, Reports no additional constitutional complaints, Denies chills and Denies fever(s) Cardiovascular: Cardiovascular: Reports no additional cardiovascular complaints, Denies chest pain and Denies leg edema Respiratory: Respiratory: Reports no additional respiratory complaints, Denies cough and Denies dyspnea Gastrointestinal: Gastrointestinal: Reports as per HPI and Reports no additional gastrointestinal complaints Neurologic: Reports system reviewed and no additional complaints, except as documented, Denies Abnormal speech present and Denies focal weakness Exam Const: General: comfortable, no acute distress, alert and awake Orientation/consciousness: oriented to person, oriented to place, No oriented to time and confusion (at times, more coherent today) GI: Inspection: other (mildly distended) GI Palp: Yes Soft to palpation, No Tenderness to palpation present (GI), No Guarding due to palpation present (GI) and No Rebound tenderness present Auscultation: normal bowel sounds Other: Miline and RLQ incision clean/dry, heron intact, no signs of infection Stoma somewhat dusky, lots of gas and some liquid panchal output in ostomy bag GUDELIA drain with serosanguineous drainage Neuro: General: moves all extremities and no focal motor deficits Extrem: General: no clubbing, cyanosis or edema and no calf tenderness Psych: Attitude: cooperative Insight: Limited insight present (Psych) Judgement: Limited judgement present (Psych) Objective Data Vital Signs Vital Signs: Vital Signs - 24 hr 04/04/21 16:00 04/04/21 22:00 04/05/21 06:00 Temperature 97.8 F 97.6 F 97.6 F Pulse Rate 92 94 86 Respiratory Rate 20 18 18 Blood Pressure 146/60 H 137/52 L 144/61 H Pulse Oximetry 94 95 95 Intake/Output Intake/Output: Intake & Output 04/02/21 04/03/21 04/04/21 04/05/21 23:59 23:59 23:59 23:59 Intake Total 1330 4240 1120 140 Output Total 2550 3350 230 600 Balance -1220 890 890 -460 Meds/Results Medications: Active Medications Generic Name Dose Route Start Last Admin Trade Name Freq PRN Reason Stop Dose Admin Acetaminophen 650 mg 04/04/21 14:46 Acetaminophen 325 Mg Tablet PO Q4H PRN Pain Rated 1-3 Calcium Carbonate 200 mg 04/04/21 14:54 04/04/21 15:18 Calcium Carbonate (Tums) 500 Mg (200 Mg Elemental) PO 200 mg Q6H PRN Administration Indigestion Enoxaparin Sodium 40 mg 04/02/21 09:00 04/05/21 08:51 Enoxaparin 40 Mg/0.4 Ml Syringe SUB-Q 40 mg DAILY SPEEDY Administration Famotidine 20 mg 04/02/21 21:00 04/05/21 08:51 Famotidine 20 Mg/2 Ml Vial IV PUSH 20 mg Q12HR SPEEDY Administration Hydr
[2021-04-05 15:03] VITALS: BP 143/59; PULSE 78; RESP 14; TEMP 36.8; O2SAT 97
[2021-04-05 22:00] VITALS: BP 159/56; PULSE 97; RESP 18; TEMP 37.2; O2SAT 97
[2021-04-06] MEDS: KCL 40 MEQ/D5/0.9% SOD CHL 1,000 ML 80 ML IV CONT (04:13)
[2021-04-06 06:00] VITALS: BP 143/53; PULSE 87; RESP 18; TEMP 37.2; O2SAT 95
[2021-04-06 06:54] LABS: Hematocrit 34.2 % (37.0-47.0); Hemoglobin 10.8 g/dL (12.0-15.0); Mean Corpuscular HGB Conc 31.6 g/dl (32-36); Mean Corpuscular Hemoglobin 27.5 pg (26-34); Mean Platelet Volume 10.3 fl (7.4-10.4); Platelet Count Result 308 k/mm3 (150-375); Red Blood Count 3.93 M/mm3 (4.2-5.4); Red Cell Distribution Width 13.6 % (11.5-14.5); White Blood Count 11.5 K/mm3 (4.5-10.0)
[2021-04-06 07:05] LABS: Anion Gap 3 mmol/L (8-16); Blood Urea Nitrogen 3 mg/dL (7-17); Calcium 8.4 mg/dL (8.4-10.2); Carbon Dioxide 28 mmol/L (22-30); Chloride 106 mmol/L (98-107); Estimated CRCL calculation 56 ml/min; Estimated Glomerular Filt Rate > 60; Glucose 111 mg/dL (65-110); Potassium 4.5 mmol/L (3.4-5.0); Sodium 137 mmol/L (137-145)
[2021-04-06] MEDS: ENOXAPARIN 40 MG/0.4 ML SYRINGE SUB-Q (09:11)
--- NOTE | 2021-04-06 09:28 | PM.PNGS ---
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 Stoma slightly dusky but appears viable. Will advance to soft diet. Discontinue GUDELIA drain. Encouraged increasing ambulation and activity. PT following. Pathology still pending. (2) Confusion: Code(s): R41.0 - Disorientation, unspecified Status: Acute Assessment and Plan: She is tearful and slightly confused this morning but no family at the bedside yet today to help with orientation. She deals with confusion and memory issues at baseline. Plans for her to go to SNF following discharge. (3) Memory impairment: Code(s): R41.3 - Other amnesia Status: Chronic Additional Plan I have discussed the plan of care with Dr. Morales. Subjective Subjective Date/Time Seen: 04/06/21 09:20 Post Op day: 5 Patient reports: no new complaints, tolerating liquids well and afebrile Interval history: Patient seen this morning and is tearful. She denies any specific complaints, but is just upset about having the colostomy. She denies any abdominal pain, nausea, vomiting, or bloating. She has been tolerating her diet but is refusing breakfast this morning because she is upset. Colostomy bag with gas and liquid contents. Review of Systems Review of Systems: All systems reviewed & are unremarkable except as noted in HPI and below ROS unobtainable: Yes other (Limited due to dementia) Constitutional: Constitutional: Reports no additional constitutional complaints Cardiovascular: Cardiovascular: Reports no additional cardiovascular complaints, Denies chest pain and Denies leg edema Respiratory: Respiratory: Reports no additional respiratory complaints, Denies cough and Denies dyspnea Gastrointestinal: Gastrointestinal: Reports as per HPI and Reports no additional gastrointestinal complaints Neurologic: Reports system reviewed and no additional complaints, except as documented, Denies Abnormal speech present and Denies focal weakness Exam Const: General: no acute distress, alert and awake Orientation/consciousness: oriented to person, oriented to place and confusion Resp: Effort & Inspection: normal respiratory effort Auscultation: clear to auscultation bilaterally Cardio: Rate: regular rate Rhythm: regular rhythm GI: Inspection: other (mildly distended) GI Palp: Yes Soft to palpation, No Tenderness to palpation present (GI) and No Guarding due to palpation present (GI) Auscultation: normal bowel sounds Other: Miline and RLQ incision clean/dry, heron intact, no signs of infection Stoma slightly dusky with same appearance as yesterday, lots of gas and some liquid panchal output in ostomy bag GUDELIA drain with serosanguineous drainage Neuro: General: moves all extremities and no focal motor deficits Extrem: General: no clubbing, cyanosis or edema and no calf tenderness Psych: Insight: Limited insight present (Psych) Judgement: Limited judgement present (Psych) Objective Data Vital Signs Vital Signs: Vital Signs - 24 hr 04/05/21 15:03 04/05/21 22:00 04/06/21 06:00 Temperature 98.2 F 98.9 F 99.0 F Pulse Rate 78 97 87 Respiratory Rate 14 18 18 Blood Pressure 143/59 H 159/56 H 143/53 H Pulse Oximetry 97 97 95 Intake/Output Intake/Output: Intake & Output 04/03/21 04/04/21 04/05/21 04/06/21 23:59 23:59 23:59 23:59 Intake Total 4240 1120 2170 1290 Output Total 3350 230 1000 550 Balance 777 334 5712 740 Meds/Results Medications: Active Medications Generic Name Dose Route Start Last Admin Trade Name Freq PRN Reason Stop Dose Admin Acetaminophen 650 mg 04/04/21 14:46 Acetaminophen 325 Mg Tablet PO Q4H PRN Pain Rated 1-3 Calcium Carbonate 200 mg 04/04/21 14:54 04/04/21 15:18 Calcium Carbonate (Tums) 500
--- NOTE | 2021-04-06 09:34 | PCWOUND ---
WOCN NOTE ordered ostomy supplies for patient to be transferred to [facility] swing bed.
--- NOTE | 2021-04-06 12:29 | PM.IMPN ---
Progress Note: A&P Assessment and Plan (1) Bowel obstruction: Qualifiers: Intestinal obstruction extent: unspecified extent Intestinal obstruction type: unspecified Qualified Code(s): K56.609 - Unspecified intestinal obstruction, unspecified as to partial versus complete obstruction Code(s): K56.609 - Unspecified intestinal obstruction, unspecified as to partial versus complete obstruction Status: Acute Assessment and Plan: The patient presented to the ER with back and abdominal pain, found to have bowel obstruction which was found to be from a sigmoid stricture in the large bowel. She has been continued on IV Zosyn. The patient was taken to surgery on 04/04/[address] 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 04/06/21- POD #5- Surgery advanced to low fiber diet. No symptoms at this time. Surgery is continuing IV Zosyn Continue monitoring and appreciate input from GI and surgery. (2) Confusion: Code(s): R41.0 - Disorientation, unspecified Status: Acute Assessment and Plan: Believe due to underlying dementia and hospitalization. Labs are all stable at this time. The nurse tells me that she has not been sleeping the last few nights so this could be the cause of her confusion. Surgery will put orders for PRN Trazodone to help with sleep overnight. Patient did sleep last night and is less confused today. Continue monitoring. (3) Diverticulitis: Code(s): K57.92 - Diverticulitis of intestine, part unspecified, without perforation or abscess without bleeding Status: Acute Assessment and Plan: History of diverticulitis in the past. The patient is on IV Zosyn at this time for treatment of diverticulitis as possible cause of her obstruction. Continue monitoring. (4) Abnormal urinalysis: Code(s): R82.90 - Unspecified abnormal findings in urine Status: Acute Assessment and Plan: Urinalysis is abnormal however she has no symptoms of UTI. Believe it is a contamination. Urine culture shows no growth. UTI was ruled out. (5) Hypokalemia: Code(s): E87.6 - Hypokalemia Status: Acute Assessment and Plan: Potassium Normal. (6) Hypertension: Code(s): I10 - Essential (primary) hypertension Status: Acute Assessment and Plan: Blood pressure slightly elevated 159/66. Patient states she does not take any blood pressure medications because it makes her feel dizzy. Continue monitoring. Will order IV Hydralazine if systolic BP >180, or Diastolic BP >100. (7) Chronic back pain: Code(s): M54.9 - Dorsalgia, unspecified; G89.29 - Other chronic pain Status: Acute Assessment and Plan: No complaints today. Continue home medications. Time Spent With Patient Time with patient: 25 - 35 minutes Subjective Date/time seen: 04/06/21 12:29 Interval history: Date of service 04/06/21: The patient reports feeling well, upset about having a colostomy. She denies anymore nausea, acid reflux or abdominal discomfort. She denies any vomiting, chest pain, shortness of breath, cough, fever, chills, leg swelling, calf pain or any other symptoms at this time. Review of Systems Review of Systems: All systems reviewed & are unremarkable except as noted in HPI and below Exam Narrative: Exam Narrative: General: 85-year-old woman sitting up in bed watching TV, appears sad. In no acute distress. Skin: No jaundice or cyanosis. Good skin turgor. Neck: Full range
[2021-04-06 14:00] VITALS: BP 136/55; PULSE 90; RESP 14; TEMP 36.6; O2SAT 97
[2021-04-06 21:53] VITALS: BP 140/63; PULSE 94; RESP 18; TEMP 35.8; O2SAT 95
[2021-04-07 06:00] VITALS: BP 140/50; PULSE 87; RESP 18; TEMP 35.9; O2SAT 97
[2021-04-07 06:40] LABS: Hematocrit 36.4 % (37.0-47.0); Hemoglobin 11.4 g/dL (12.0-15.0); Mean Corpuscular HGB Conc 31.3 g/dl (32-36); Mean Corpuscular Hemoglobin 27.4 pg (26-34); Mean Corpuscular Volume 87.5 fl (80-100); Mean Platelet Volume 10.3 fl (7.4-10.4); Platelet Count Result 349 k/mm3 (150-375); Red Blood Count 4.16 M/mm3 (4.2-5.4); Red Cell Distribution Width 13.7 % (11.5-14.5); White Blood Count 12.6 K/mm3 (4.5-10.0)
[2021-04-07 07:09] LABS: Anion Gap 9 mmol/L (8-16); Blood Urea Nitrogen 7 mg/dL (7-17); Calcium 8.7 mg/dL (8.4-10.2); Carbon Dioxide 24 mmol/L (22-30); Chloride 102 mmol/L (98-107); Estimated CRCL calculation 48 ml/min; Estimated Glomerular Filt Rate > 60; Glucose 96 mg/dL (65-110); Potassium 3.7 mmol/L (3.4-5.0); Sodium 135 mmol/L (137-145)
[2021-04-07] MEDS: FAMOTIDINE 20 MG TABLET PO ×2 (08:51→21:08)
[2021-04-07] MEDS: ENOXAPARIN 40 MG/0.4 ML SYRINGE SUB-Q (08:51)
--- NOTE | 2021-04-07 10:04 | PM.IMPN ---
Progress Note: A&P Assessment and Plan (1) Need for discharge planning: Status: Acute Assessment and Plan: Family deciding on SNF/Swing Bed/TRC placement. Care coordination to work with family. Otherwise patient is doing well at this time medically and stable for discharge. (2) Bowel obstruction: Qualifiers: Intestinal obstruction extent: unspecified extent Intestinal obstruction type: unspecified Qualified Code(s): K56.609 - Unspecified intestinal obstruction, unspecified as to partial versus complete obstruction Code(s): K56.609 - Unspecified intestinal obstruction, unspecified as to partial versus complete obstruction Status: Acute Assessment and Plan: The patient presented to the ER with back and abdominal pain, found to have bowel obstruction which was found to be from a sigmoid stricture in the large bowel. She has been continued on IV Zosyn. The patient was taken to surgery on 04/04/[address] 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 04/07/21- POD #6- Surgery is happy with the patients symptoms, tolerating diet well ate cheeseburger and pasta yesterday and tolerated well. Surgery is considering discontinuing IV Zosyn today Continue monitoring and appreciate input from GI and surgery. (3) Confusion: Code(s): R41.0 - Disorientation, unspecified Status: Acute Assessment and Plan: Believe due to underlying dementia and hospitalization. Labs are all stable at this time. The nurse tells me that she has not been sleeping the last few nights so this could be the cause of her confusion. Daughter is concerned about the pts mental status. I told her with dementia, hospitalization, surgery, anesthesia all of this can contribute to worsening confusion. I told her we could start her on Seroquel to help promote good sleeping habits and confusion. The daughter states the patient does not like to take medications and refused Melatonin last night, but slept well. I told her there is not much to offer her otherwise at this time. She will need to follow up with Neurology/Geriatric Psychiatry as an outpatient after discharge. Continue monitoring. (4) Diverticulitis: Code(s): K57.92 - Diverticulitis of intestine, part unspecified, without perforation or abscess without bleeding Status: Acute Assessment and Plan: History of diverticulitis in the past. The patient is on IV Zosyn at this time, surgery considering discontinuation of abx today. Continue monitoring. (5) Abnormal urinalysis: Code(s): R82.90 - Unspecified abnormal findings in urine Status: Acute Assessment and Plan: Urinalysis is abnormal however she has no symptoms of UTI. Believe it is a contamination. Urine culture shows no growth. UTI was ruled out. (6) Hypokalemia: Code(s): E87.6 - Hypokalemia Status: Acute Assessment and Plan: Potassium Normal. (7) Hypertension: Code(s): I10 - Essential (primary) hypertension Status: Acute Assessment and Plan: Blood pressure slightly elevated 140/50. Patient states she does not take any blood pressure medications because it makes her feel dizzy. Continue monitoring. Will order IV Hydralazine if systolic BP >180, or Diastolic BP >100. (8) Chronic back pain: Code(s): M54.9 - Dorsalgia, unspecified; G89.29 - Other chronic pain Status: Acute Assessment and Plan: No complaints today. Continue home medications.
--- NOTE | 2021-04-07 10:24 | PM.PNGS ---
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 Tolerating a regular diet and ostomy is functioning well. Surgically stable for discharge when okay with other services. Planning to go to SNF for rehab. [place] can be removed in 1 week at SNF. Follow-up with Dr. Powers in 2-3 weeks in the office. Pathology showed perforated diverticulitis with abscess formation. (2) Confusion: Code(s): R41.0 - Disorientation, unspecified Status: Acute Assessment and Plan: Plans for SNF on discharge. Care coordination working on finding placement. (3) Memory impairment: Code(s): R41.3 - Other amnesia Status: Chronic Additional Plan I have discussed the plan of care with Dr. Powers. Subjective Subjective Date/Time Seen: 04/07/21 10:24 Post Op day: 6 Patient reports: no new complaints, tolerating a regular diet and afebrile Interval history: Patient doing well this morning without any specific complaints. No pain. She is tolerating her diet without nausea, vomiting, or bloating. Ostomy functioning well. Patient's daughter is at bedside. Reports patient slept well last night and is more oriented today. Review of Systems Review of Systems: All systems reviewed & are unremarkable except as noted in HPI and below Exam Const: General: comfortable, no acute distress, alert and awake Orientation/consciousness: oriented to person, oriented to place and confusion (at times, memory impairment) GI: Inspection: non-distended and incision (clean and dry) GI Palp: Yes Soft to palpation, No Tenderness to palpation present (GI) and No Guarding due to palpation present (GI) Auscultation: normal bowel sounds Other: Stoma slightly dusky with same appearance as yesterday, lots of gas and some liquid panchal output in ostomy bag Neuro: General: moves all extremities and no focal motor deficits Extrem: General: no clubbing, cyanosis or edema and no calf tenderness Psych: Mental Status: mental status grossly normal Insight: Good insight present (Psych) Judgement: Good judgement present (Psych) Objective Data Vital Signs Vital Signs: Vital Signs - 24 hr 04/06/21 14:00 04/06/21 21:53 04/07/21 06:00 Temperature 97.8 F 96.5 F L 96.6 F L Pulse Rate 90 94 87 Respiratory Rate 14 18 18 Blood Pressure 136/55 L 140/63 140/50 L Pulse Oximetry 97 95 97 Intake/Output Intake/Output: Intake & Output 04/04/21 04/05/21 04/06/21 04/07/21 23:59 23:59 23:59 23:59 Intake Total 1120 2170 3461 290 Output Total 230 1000 1090 590 Balance 890 1170 2371 -300 Meds/Results Medications: Active Medications Generic Name Dose Route Start Last Admin Trade Name Freq PRN Reason Stop Dose Admin Acetaminophen 650 mg 04/04/21 14:46 Acetaminophen 325 Mg Tablet PO Q4H PRN Pain Rated 1-3 Calcium Carbonate 200 mg 04/04/21 14:54 04/04/21 15:18 Calcium Carbonate (Tums) 500 Mg (200 Mg Elemental) PO 200 mg Q6H PRN Administration Indigestion Enoxaparin Sodium 40 mg 04/02/21 09:00 04/07/21 08:51 Enoxaparin 40 Mg/0.4 Ml Syringe SUB-Q 40 mg DAILY SPEEDY Administration Famotidine 20 mg 04/06/21 09:00 04/07/21 08:51 Famotidine 20 Mg Tablet PO 20 mg Q12HR SPEEDY Administration Hydralazine HCl 10 mg 04/02/21 14:10 Hydralazine Hcl 20 Mg/Ml Vial IV PUSH Q8H PRN Blood Pressure - High Piperacillin/Tazobactam/Dextrose 3.375 gm in 50 mls @ 100 mls/hr 03/28/21 18:00 04/07/21 06:48 Zosyn 3.375 Gm/D5w 50ml Pm IVPB Infused Q6HR SPEEDY Infusion Melatonin 3 mg 04/04/21 21:00 04/07/21 00:25 Melatonin 3 Mg Tablet PO Not Given HS SPEEDY Morphine Sulfate 2 mg 04/01/21 20:15 Morphine Sulfate (*Crx) 2 Mg/Ml Inj IV PUSH Q2H PRN Pain Rated 4-6 Morphine Sulfate 4 mg
[2021-04-07 14:00] VITALS: BP 121/53; PULSE 97; RESP 14; TEMP 36.5; O2SAT 95
[2021-04-07] MEDS: MELATONIN 3 MG TABLET PO (21:08)
[2021-04-07 22:00] VITALS: BP 137/68; PULSE 104; RESP 18; TEMP 36.2; O2SAT 96
[2021-04-08 02:52] VITALS: TEMP 37.5
[2021-04-08 06:00] VITALS: BP 136/60; PULSE 95; RESP 18; TEMP 36.5; O2SAT 93
[2021-04-08] MEDS: ENOXAPARIN 40 MG/0.4 ML SYRINGE SUB-Q (09:16)
[2021-04-08] MEDS: FAMOTIDINE 20 MG TABLET PO (09:16)
--- NOTE | 2021-04-08 10:28 | PCNFU ---
Nutrition Follow-Up Complete: Altered GI function as related to Diverticulitis as evidenced by clear liquids/PPN Goal: Meet estimated nutritional needs Patient is progressing towards goal. We will continue current goal. Pt current nutrition is Regular. Last recorded weight is 70.3 kg, up from 66.3 kg on admit. Bowel Motility:ostomy Labs Reviewed:Cr 0.6,Na 135, Hct 36.4,Hgb 11.4 Meds Noted: Melatonin, Pepcid,Lovenox,Zofran,Tums. Additional Notes: Patient seen today for nutrition follow up. Finishing up her breakfast tray, overall intake has been 40-100% of most meals. Daughter had questions regards foods for colostomy. Patient instructions attached with information. Agree with diet orders. Will monitor every 5 days.
--- NOTE | 2021-04-08 13:18 | PM.IMPN ---
Progress Note: A&P Assessment and Plan (1) Need for discharge planning: Status: Acute Assessment and Plan: Family deciding on SNF/Swing Bed/TRC placement. Care coordination to work with family. Otherwise patient is doing well at this time medically and stable for discharge. (2) Bowel obstruction: Qualifiers: Intestinal obstruction extent: unspecified extent Intestinal obstruction type: unspecified Qualified Code(s): K56.609 - Unspecified intestinal obstruction, unspecified as to partial versus complete obstruction Code(s): K56.609 - Unspecified intestinal obstruction, unspecified as to partial versus complete obstruction Status: Acute Assessment and Plan: The patient presented to the ER with back and abdominal pain, found to have bowel obstruction which was found to be from a sigmoid stricture in the large bowel. She has been continued on IV Zosyn. The patient was taken to surgery on 04/04/[address] 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 04/08/21- POD #7- Surgery is happy with the patients symptoms, tolerating diet. No further evaluation needed. Discharge planning issues. (3) Confusion: Code(s): R41.0 - Disorientation, unspecified Status: Acute Assessment and Plan: Believe due to underlying dementia and hospitalization. Labs are all stable at this time. The nurse tells me that she has not been sleeping the last few nights so this could be the cause of her confusion. Daughter is concerned about the pts mental status. I told her with dementia, hospitalization, surgery, anesthesia all of this can contribute to worsening confusion. I told her we could start her on Seroquel to help promote good sleeping habits and confusion. The daughter states the patient does not like to take medications and refused Melatonin last night, but slept well. I told her there is not much to offer her otherwise at this time. She will need to follow up with Neurology/Geriatric Psychiatry as an outpatient after discharge. (4) Diverticulitis: Code(s): K57.92 - Diverticulitis of intestine, part unspecified, without perforation or abscess without bleeding Status: Acute Assessment and Plan: History of diverticulitis in the past. IV Zosyn discontinuation 04/07/21 (5) Abnormal urinalysis: Code(s): R82.90 - Unspecified abnormal findings in urine Status: Acute Assessment and Plan: Urinalysis is abnormal however she has no symptoms of UTI. Believe it is a contamination. Urine culture shows no growth. UTI was ruled out. (6) Hypokalemia: Code(s): E87.6 - Hypokalemia Status: Acute Assessment and Plan: Potassium Normal. (7) Hypertension: Code(s): I10 - Essential (primary) hypertension Status: Acute Assessment and Plan: Blood pressure slightly elevated 140/50. Patient states she does not take any blood pressure medications because it makes her feel dizzy. Continue monitoring. Will order IV Hydralazine if systolic BP >180, or Diastolic BP >100. (8) Chronic back pain: Code(s): M54.9 - Dorsalgia, unspecified; G89.29 - Other chronic pain Status: Acute Assessment and Plan: No complaints today. Continue home medications. Additional Plan Time Spent With Patient Time with patient: 25 - 35 minutes Subjective Date/time seen: 04/08/21 13:18 Interval history: Date of service 04/07/21: The patient report
[2021-04-08 14:00] VITALS: BP 126/47; PULSE 88; RESP 18; TEMP 36.7; O2SAT 95
--- NOTE | 2021-04-08 14:34 | PM.DS ---
DS: Admitting Diagnosis Admitting Diagnosis Abdominal pain/distention DS: Discharge Diagnosis Discharge Diagnosis (1) Need for discharge planning: Status: Acute Assessment and Plan: Accepted into SNF stable for D/C (2) Bowel obstruction: Qualifiers: Intestinal obstruction extent: unspecified extent Intestinal obstruction type: unspecified Qualified Code(s): K56.609 - Unspecified intestinal obstruction, unspecified as to partial versus complete obstruction Code(s): K56.609 - Unspecified intestinal obstruction, unspecified as to partial versus complete obstruction Status: Acute Assessment and Plan: The patient is an 85-year-old woman with a history of diverticulitis, chronic back pain, memory impairment, who presented to the emergency room with abdominal pain and distension, with associated nausea and vomiting x1. Initial vitals showed she was afebrile, non tachycardic, elevated blood pressure to 158/74, normal oxygenation and respiratory rate on room air. Initial labs showed leukocytosis at 12,500, slightly elevated neutrophils of 74%, hypokalemia, normal renal function, normal LFTs. Normal lipase. Abdominal CT scan showed focal wall thickening of the sigmoid colon with bowel obstruction, consistent with chronic diverticulitis versus primary malignancy. The patient was admitted into the hospital, placed NPO with a surgical consultation. Surgery evaluated the patient and discussed treatment options after the patient's abdominal x-ray showed significant dilation of colon suggests is of near complete obstruction. the patient agreed to undergo surgery on 04/04/[address] 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 after surgery the patient continued on IV Zosyn and recovered well postop. She has been eating and drinking without any issues at this time. Good output of her colostomy. Electrolytes are now stable. The patient is stable for discharge at this time to go to SNF for further physical and occupational therapy. The patient and family understand agree with plan all questions answered. (3) Confusion: Code(s): R41.0 - Disorientation, unspecified Status: Acute Assessment and Plan: Believe due to underlying dementia and hospitalization. Daughter is concerned about the pts mental status. I told her with dementia, hospitalization, surgery, anesthesia all of this can contribute to worsening confusion. I told her we could start her on Seroquel to help promote good sleeping habits and confusion. The daughter states the patient does not like to take medications and refused Melatonin last night, but slept well. I told her there is not much to offer her otherwise at this time. She will need to follow up with Neurology/Geriatric Psychiatry as an outpatient after discharge. (4) Diverticulitis: Code(s): K57.92 - Diverticulitis of intestine, part unspecified, without perforation or abscess without bleeding Status: Acute Assessment and Plan: History of diverticulitis in the past. IV Zosyn discontinuation 04/07/21 (5) Abnormal urinalysis: Code(s): R82.90 - Unspecified abnormal findings in urine Status: Acute Assessment and Plan: Urinalysis is abnormal however she has no symptoms of UTI. Believe it is a contamination. Urine culture shows no growth. UTI was ruled out. (6) Hypokalemia: Code(s): E87.6 - Hypokalemia Status: Acute Assessment and Plan: Potassium Normal. (7) Hypertension: Code(s): I10 - Essential (
[2021-04-08 14:46] LABS: EDCOVIDSCREEN Negative (Negative)
== END 2021-04-08 18:49 | DRG 330 ==
LOC: ANHED 10:15 → ANH3MEDSUR 14:32 → ANHIMU 04-01 21:38 → ANH3MEDSUR 04-03 21:01
PROVIDERS: Nurse Practitioner Family; Physician Assistant; Surgery; Admitting Provider Internal Medicine; Emergency Provider Emergency Medicine; PCP Family Medicine; Visit Provider Family Medicine
PROC: 0D1E4Z4 Bypass Large Intestine to Cutaneous, Percutaneous Endoscopic Approach (ICD-10-PCS; principal; 2021-04-01 14:30)
DX: K56.699 Other intestinal obstruction unspecified as to partial versus complete obstruction (principal); K57.92 Diverticulitis of intestine, part unspecified, without perforation or abscess without bleeding; K66.0 Peritoneal adhesions (postprocedural) (postinfection); Z53.31 Laparoscopic surgical procedure converted to open procedure; R82.90 Unspecified abnormal findings in urine; E87.6 Hypokalemia; I10 Essential (primary) hypertension; M54.9 Dorsalgia, unspecified; G89.29 Other chronic pain; K21.9 Gastro-esophageal reflux disease without esophagitis; R41.3 Other amnesia; R41.89 Other symptoms and signs involving cognitive functions and awareness; R41.0 Disorientation, unspecified; Z86.73 Personal history of transient ischemic attack (TIA), and cerebral infarction without residual deficits; Z87.891 Personal history of nicotine dependence; Z88.8 Allergy status to other drugs, medicaments and biological substances; Z90.710 Acquired absence of both cervix and uterus
CPT/HCPCS: 36415; 36569; 71046; 71100; 74018; 74177; 80048; 80053; 80069; 81001; 82378; 82948; 83690; 83735; 84100; 84132; 84466; 84478; 85025; 85027; 85055; 85610; 85730; 86850; 86900; 86901; 87086; 87088; 87426; 88307; 96361; 96365; 96366; 96367; 97110; 97116; 97161; 97162; 97166; 97530; 97535; 99285; A9270; C1729; C1751; C9113; C9290; C9803; G0378; J0131; J1170; J1650; J2270; J2405; J2543; J3010; J3480; J7030; J7040; J7060; J7120; Q9967

== ENCOUNTER 2021-07-22 20:06 | Emergency (ER) | payer MEDICARE, SELFPAY ==
--- NOTE | ~2021-07-22 | CT_ITS ---
EXAMINATION: CT abdomen pelvis w con DATE: 07/22/2021 23:49 INDICATION: Abdominal pain TECHNIQUE: Computed tomography (CT) of the abdomen and pelvis was performed with 100 cc Omnipaque 350 intravenous contrast. Automated exposure control and iterative reconstruction technique were employe d. Exam dose: 561.12 mGy-cm total exam DLP. COMPARISON: None. FINDINGS: There is cardiomegaly and small pericardial effusion. There is minimal discoid atelectasis or scarring at the lung bases. Diffuse hepatic steatosis. Status post cholecystectomy. No hepatic, splenic, pancreatic, adrenal or renal space occupying mass lesion, with the exception of left 8 mm and 28 mm renal cysts. The urinary bladder is unremarkable. Status post hysterectomy. There is normal caliber of the abdominal aorta with atherosclerotic calcification. No intraperitoneal or retroperitoneal or pelvic mass lesion or lymphadenopathy. Normal appendix. Left lower quadrant colostomy. No bowel obstruction or intraperitoneal free air. Degenerative changes of the thoracic and lumbar spine and hips. IMPRESSION: Left lower quadrant colostomy; no bowel obstruction Normal appendix Status post cholecystectomy Hepatic steatosis Cardiomegaly Small pericardial effusion Reviewed, dictated and finalized at [facility]. Reviewed, dictated and finalized at [facility].
--- NOTE | ~2021-07-22 | CT_ITS ---
EXAMINATION: CT brain wo con DATE: 07/22/2021 21:07 INDICATION: Dizziness. Fever. TECHNIQUE: Computed tomography (CT) of the head was performed without intravenous contrast. The mA wa s adjusted according to patient size. Iterative reconstruction technique was employed. Exam dose: 60 5.33 mGy-cm total exam DLP. COMPARISON: 04/05/2020 MRI brain/brainstem 03/07/2020 CT brain FINDINGS: Right choroidal fissure cyst, stable since 03/07/2020. No intracranial mass lesion or hemorrhage or cerebrovascular accident is detected. No midline shift o r mass effect effect. No subdural or epidural hematoma. Right vertebral artery and bilateral carotid siphon internal carotid artery calcifications. There is nonspecific diminished attenuation cerebral white matter, likely due to chronic small vessel ischemic changes. No fracture or bone destruction of the cranial vault. Bilateral hyperostosis frontalis interna, not l ikely of any clinical significance. The mastoid air cells and included paranasal sinuses are normally developed and aerated.. IMPRESSION: Cerebral atherosclerosis and chronic small vessel ischemic changes of cerebral white niranjan er No acute intracranial finding or significant change since 03/07/2020 Reviewed, dictated and finalized at [facility]. Reviewed, dictated and finalized at [facility]. IMPRESSION: Cerebral atherosclerosis and chronic small vessel ischemic changes of cerebral white matter No acute intracranial finding or significant change since 03/07/2020
--- NOTE | ~2021-07-22 | XR_ITS ---
XR chest 2V DATE: 07/22/2021 21:16 INDICATION: Fever, dizziness, weakness. History of hypertension. TECHNIQUE: AP and lateral views COMPARISON: 03/28/2021 PA and lateral chest FINDINGS: Cardiomegaly. Thoracic and abdominal aortic calcification. No hilar or mediastinal enlargement. No pulmonary infiltrate or consolidation, pleural effusion or pu lmonary vascular congestion or pneumothorax. Diffuse osteopenia. Probable old healed left humeral surgical neck mild fracture deformity. IMPRESSION: No active pulmonary disease Cardiac megaly, aortic atherosclerosis Diffuse osteopenia Reviewed, dictated and finalized at [facility].
[2021-07-22 20:09] VITALS: BP 136/73; PULSE 120; RESP 16; TEMP 37.4; O2SAT 93
--- NOTE | 2021-07-22 20:16 | ECG_ITS ---
Measurements Intervals [place] Rate: 103 P: 14 DE: 170 QRS: 62 QRSD: 81 T: 19 QT: 299 QTc: 392 Interpretive Statements SINUS TACHYCARDIA INCOMPLETE RIGHT BUNDLE BRANCH BLOCK BASELINE ARTIFACT- I, II, III, AVR, AVL,A VF BORDERLINE ECG Electronically Signed On 07-23-2021 7:34:11 CDT by Bg Watts D.O.
--- NOTE | 2021-07-22 20:30 | PC.NURSE ---
RN asked pt. for urine sample. pt. unable to void at this time.
[2021-07-22 20:49] LABS: Basophils Absolute Auto 0.1 K/mm3 (0.0-0.1); Basophils Percent Auto 0.8 % (0.2-1.2); Eosinophils Absolute Auto 0.1 K/mm3 (0-0.3); Eosinophils Percent Auto 0.6 % (0-4.4); Hemoglobin 14.6 g/dL (12.0-15.0); Immature Granulocyte Absolute 0.08 K/mm3 (0.00-0.031); Immature Granulocyte Percent A 0.9 % (0-0.5); Lymphocytes Absolute Auto 1.33 K/mm3 (0.9-3.2); Lymphocytes Percent Auto 15.1 % (18.3-44.2); Mean Corpuscular HGB Conc 32.4 g/dl (32-36); Mean Corpuscular Hemoglobin 27.7 pg (26-34); Mean Corpuscular Volume 85.2 fl (80-100); Mean Platelet Volume 10.7 fl (7.4-10.4); Monocytes Absolute Auto 1.2 K/mm3 (0.1-0.6); Monocytes Percent Auto 14.1 % (2.6-8.5); Neutrophils Percent Auto 68.5 % (45.5-73.1); Platelet Count Result 191 k/mm3 (150-375); Red Blood Count 5.28 M/mm3 (4.2-5.4); Red Cell Distribution Width 13.3 % (11.5-14.5); White Blood Count 8.8 K/mm3 (4.5-10.0)
[2021-07-22] MEDS: SODIUM CHLORIDE 0.9% IV 1,000 ML 999 ML IV CONT (20:55)
--- NOTE | 2021-07-22 21:00 | PC.NURSE ---
pt. to CT
[2021-07-22 21:03] LABS: Lipase 75 U/L (23-300)
[2021-07-22 21:04] LABS: Lactic Acid Reflex 0.8 mmol/L (0.7-2.1)
[2021-07-22 21:05] LABS: Alanine Aminotransferase 14 U/L (4-35); Albumin Level 4.3 g/dL (3.5-5.1); Alkaline Phosphatase 85 U/L (38-126); Anion Gap 10 mmol/L (8-16); Aspartate Amino Transferase 24 U/L (14-36); Bilirubin,Total 0.7 mg/dL (0.2-1.3); Blood Urea Nitrogen 16 mg/dL (7-17); Calcium 8.9 mg/dL (8.4-10.2); Carbon Dioxide 23 mmol/L (22-30); Chloride 103 mmol/L (98-107); Estimated Glomerular Filt Rate > 60; Glucose 109 mg/dL (65-110); Potassium 4.2 mmol/L (3.4-5.0); Sodium 136 mmol/L (137-145)
--- NOTE | 2021-07-22 21:39 | ED.GENADULT ---
HPI - General Adult General Chief complaint: Fever Stated complaint: weakness Time Seen by Provider: 07/22/21 20:19 Source: RN notes reviewed History of Present Illness HPI narrative: Patient presents to emergency department from assisted living via EMS for dizziness. Upon discussion with the patient she states that she is here because she was having some increased back pain she states she has chronic back pain in her upper back that she has had for the past 40 years states that it became a little more severe this evening and she did ask for them to send her to the ER for further evaluation. Patient does have dementia and is in assisted living her daughter is present and states that she had gotten a call earlier the patient has been noticing some intermittent dizziness as well as not eating as well today. Patient denies that she is dizzy and denies not eating well she did not denies having any fevers or chills chest pain shortness of breath abdominal pain nausea vomiting or any other symptoms Related Data Allergies Allergy/AdvReac Type Severity Reaction Status Date / Time metoprolol Allergy Unknown Dizziness Verified 07/22/21 20:16 Review of Systems Review of Systems: Gen.: Denies fevers or chills Eyes: Denies eye pain or visual change ENT: Denies congestion Respiratory: Denies shortness of breath or cough CV: Denies chest pain or palpitations GI: Denies abdominal pain nausea, emesis or diarrhea Musculoskeletal: Reports chronic upper back pain Neuro: Denies numbness, tingling, weakness or focal weakness Skin: Denies rash Except as documented, all other systems reviewed and negative [facility] Past Medical History Medical History Arthritis Chronic back pain Diverticulitis of intestine with abscess (03/2020) Gastroesophageal reflux disease Hypertension Not on medication as they cause her to feel dizzy. Memory impairment Transient ischemic attack (2003) Surgical History Surgical History History of cholecystectomy (10/30/11) History of hysterectomy History of tonsillectomy Family History Family History Father Patient's father is Family history of premature coronary heart disease, Onset Age: 62 Heart attack Mother Patient's mother is Colon cancer Other Cerebrovascular accident Diabetes mellitus Family history of arthritis Family history of gout Family history of heart disease in male family member before age 55 Family history of malignant neoplasm Hypertension Social History Social History Social History: Surrogate decision maker: Damian Perry( son) or Dayanna Doe (daughter). Code status: Full code. Smoking packs per day: 1 Smoking cigarettes per day: 20.0 Years smoked: 20 Smoking pack-years: 20.00 Smoking status: Former smoker Tobacco type: cigarettes Smoking end date: 09/17/88 Alcohol intake: never Substance use: never Additional living arrangements comments: . Lives in [place]. Additional occupation/education comments: Retired caterer. Gender identity (if verbalized by the patient): Female Spiritual care concerns: No Exam Narrative: APPEARANCE: No acute distress, nontoxic, resting in bed EYES: EOMI PERRL HEENT: Normocephalic, atraumatic, OMM RESPIRATORY: No respiratory distress Clear to auscultation bilaterally with no rhonchi wheezing or rales. CARDIOVASCULAR: Regular rate and rhythm without murmurs rubs or gallops. ABDOMINAL: Soft, nontender, nondistended, no rebound or guarding MUSCULOSKELETAl: Moves all extremities. No clubbing, cyanosis or edema. Colostomy present NEURO: Awake and alert x 3. Following commands, speech normal, no focal deficits SKIN:: Warm, dry. No rashes lesions o
--- NOTE | 2021-07-22 22:02 | PC.NURSE ---
RN asked pt. for urine sample. pt. states she cannot go at this time. pt. refusing straight cath or to try for urinas well.
[2021-07-22 22:28] LABS: INR 1.2; Prothrombin Time 15.2 Seconds (11.1-14.7)
[2021-07-22 22:30] LABS: Partial Thromboplastin Time 27.5 SECONDS (22.3-36.8)
[2021-07-22 22:36] VITALS: TEMP 37.9
[2021-07-22 22:49] LABS: Add Urine Microscopic? YES; Appearance Urine Clear (Clear); Bilirubin Urine Negative (Negative); Blood Urine 1+ (Negative); Color Urine Yellow (Yellow); Glucose Urine UA Negative (Negative); Ketones Urine Negative (Negative); Leukocyte Esterase Ur 3+ LEU/UL (Negative); Nitrate Urine Negative (Negative); Protein Urine Negative (Negative); Specific Grav Ur 1.013 (1.001-1.035); Squamous Epithelial Cell Urine Few /hpf (Few); Urobilinogen Urine Negative mg/dL (<2.0); WBC Urine 31-50 /hpf
[2021-07-22 22:54] VITALS: BP 118/87; PULSE 102; RESP 18; TEMP 37.6; O2SAT 96
[2021-07-22 23:53] VITALS: BP 122/52; PULSE 98; RESP 14; TEMP 37; O2SAT 94
--- NOTE | 2021-07-23 00:25 | PM.IMHP ---
H&P: HPI History of Present Illness Date/Time: 07/23/21 00:25 Chief Complaint: Fever and dizziness Narrative: 85-year-old female with a past medical history of memory impairment, hypertension, GERD and prior bowel obstruction who presented to the ER from [facility] with fevers and dizziness. [facility] Past Medical History Medical History (Updated 04/07/21 @ 11:08 by Kirti Hernandez PA-C) Arthritis Chronic back pain Diverticulitis of intestine with abscess (03/2020) Gastroesophageal reflux disease Hypertension Not on medication as they cause her to feel dizzy. Memory impairment Transient ischemic attack (2003) Surgical History Surgical History History of cholecystectomy (10/30/11) History of hysterectomy History of tonsillectomy Family History Family History Father Patient's father is Family history of premature coronary heart disease, Onset Age: 62 Heart attack Mother Patient's mother is Colon cancer Other Cerebrovascular accident Diabetes mellitus Family history of arthritis Family history of gout Family history of heart disease in male family member before age 55 Family history of malignant neoplasm Hypertension Social History Social History Social History: Surrogate decision maker: Damian Perry( son) or Dayanna Doe (daughter). Code status: Full code. Smoking packs per day: 1 Smoking cigarettes per day: 20.0 Years smoked: 20 Smoking pack-years: 20.00 Smoking status: Former smoker Tobacco type: cigarettes Smoking end date: 09/17/88 Alcohol intake: never Substance use: never Additional living arrangements comments: . Lives in [place]. Additional occupation/education comments: Retired caterer. Gender identity (if verbalized by the patient): Female Spiritual care concerns: No Meds Home Medications and Allergies Home Medications Medication Instructions Recorded Confirmed Type acetaminophen [Mapap 650 mg PO Q4H PRN #10 tablet 04/08/21 Rx (acetaminophen)] acetaminophen [Tylenol Arthritis 650 mg PO Q8H #10 tablet 04/08/21 03/28/21 Rx Pain] calcium carbonate 200 mg PO Q6H PRN #10 tablet 04/08/21 Rx melatonin 3 mg PO HS #10 tablet 04/08/21 Rx Allergies Allergy/AdvReac Type Severity Reaction Status Date / Time metoprolol Allergy Unknown Dizziness Verified 07/22/21 20:16 Vital Signs Vital Signs - 24 hr 07/22/21 20:09 07/22/21 22:36 07/22/21 22:54 Temperature 99.4 F 100.2 F H 99.7 F H Pulse Rate 120 H 102 H Respiratory Rate 16 18 Blood Pressure 136/73 118/87 Pulse Oximetry 93 96 07/22/21 23:53 Temperature 98.6 F Pulse Rate 98 Respiratory Rate 14 Blood Pressure 122/52 L Pulse Oximetry 94 H&P: Results Labs Labs: Short CBC 07/22/21 Range/Units 20:41 WBC 8.8 (4.5-10.0) K/mm3 Hgb 14.6 D (12.0-15.0) g/dL Hct 45.0 (37.0-47.0) % Plt Count 191 (150-375) k/mm3 BMP 07/22/21 20:41 Sodium 136 L Potassium 4.2 Chloride 103 Carbon Dioxide 23 BUN 16 Creatinine 0.70 Glucose 109 Calcium 8.9 Liver Function 07/22/21 Range/Units 20:41 Total Bilirubin 0.7 (0.2-1.3) mg/dL AST 24 (14-36) U/L ALT 14 (4-35) U/L Alkaline Phosphatase 85 (38-126) U/L Albumin 4.3 (3.5-5.1) g/dL Urine 07/22/21 Range/Units 22:32 Urine Color Yellow (Yellow) Urine Appearance Clear (Clear) Urine pH 6.0 (5.0-9.0) Ur Specific [place] 1.013 (1.001-1.035) Urine Protein Negative (Negative) mg/dL Urine Glucose (UA) Negative (Negative) mg/dL
[2021-07-23 01:10] VITALS: BP 110/70; PULSE 78; RESP 12; O2SAT 97
== END 2021-07-23 01:10 ==
PROVIDERS: Emergency Provider Emergency Medicine
DX: N39.0 Urinary tract infection, site not specified (principal); F03.90 Unspecified dementia, unspecified severity, without behavioral disturbance, psychotic disturbance, mood disturbance, and anxiety; I10 Essential (primary) hypertension; M19.90 Unspecified osteoarthritis, unspecified site; G89.29 Other chronic pain; M54.9 Dorsalgia, unspecified; K21.9 Gastro-esophageal reflux disease without esophagitis; Z86.73 Personal history of transient ischemic attack (TIA), and cerebral infarction without residual deficits; Z87.891 Personal history of nicotine dependence; I67.2 Cerebral atherosclerosis; M85.88 Other specified disorders of bone density and structure, other site; I51.7 Cardiomegaly; I70.0 Atherosclerosis of aorta; Z93.3 Colostomy status; K76.0 Fatty (change of) liver, not elsewhere classified
CPT/HCPCS: 36415; 70450; 71046; 74177; 80053; 81001; 83605; 83690; 85025; 85610; 85730; 87086; 87088; 93005; 96361; 96365; 96375; 99284; J0131; J0696; J7030; Q9967

== ENCOUNTER 2022-05-30 21:21 | Emergency (ER) | payer MEDICARE, SELFPAY ==
--- NOTE | ~2022-05-30 | XR_ITS ---
EXAMINATION: XR chest 2V Exam Date/Time: 05/30/2022 21:47 CDT HISTORY: SOB Comparison: 07/22/2021. RESULT: Lines, tubes, and devices: None. Lungs and pleura: Senescent change, otherwise clear. Cardiomediastinal silhouette: Stable cardiomegaly. Other: No acute osseous or upper abdominal finding. IMPRESSION: No acute cardiopulmonary process. Reviewed, dictated and finalized at [facility].
[2022-05-30 21:22] VITALS: BP 158/72; PULSE 83; RESP 16; TEMP 36.3; O2SAT 97
--- NOTE | 2022-05-30 21:24 | ECG_ITS ---
Measurements Intervals [place] Rate: 64 P: 44 [place]: 180 QRS: 62 QRSD: 82 T: 22 QT: 366 QTc: 378 Interpretive Statements SINUS RHYTHM BASELINE ARTIFACT- I, II, AVR, AVL, AVF NORMAL ECG COMPARED TO ECG 07/22/2021 21:32:43 HEART RATE HAS DECREASED Electronically Signed On 05-30-2022 21:57:20 CDT by Bg Watts D.O.
[2022-05-30 21:59] LABS: Basophils Absolute Auto 0.1 K/mm3 (0.0-0.1); Basophils Percent Auto 0.9 % (0.2-1.2); Eosinophils Absolute Auto 0.2 K/mm3 (0-0.3); Eosinophils Percent Auto 1.7 % (0-4.4); Hematocrit 42.6 % (37.0-47.0); Hemoglobin 13.9 g/dL (12.0-15.0); Immature Granulocyte Absolute 0.09 K/mm3 (0.00-0.031); Immature Granulocyte Percent A 0.8 % (0-0.5); Lymphocytes Absolute Auto 4.24 K/mm3 (0.9-3.2); Lymphocytes Percent Auto 38.7 % (18.3-44.2); Mean Corpuscular HGB Conc 32.6 g/dl (32-36); Mean Corpuscular Hemoglobin 28.2 pg (26-34); Mean Corpuscular Volume 86.4 fl (80-100); Mean Platelet Volume 11.5 fl (7.4-10.4); Monocytes Absolute Auto 0.9 K/mm3 (0.1-0.6); Monocytes Percent Auto 8.1 % (2.6-8.5); Neutrophils Absolute Auto 5.5 K/mm3 (1.3-6.7); Neutrophils Percent Auto 49.8 % (45.5-73.1); Platelet Count Result 256 k/mm3 (150-375); Red Blood Count 4.93 M/mm3 (4.2-5.4); Red Cell Distribution Width 13.5 % (11.5-14.5)
[2022-05-30 22:03] LABS: Alanine Aminotransferase 21 U/L (6-35); Albumin Level 4.3 g/dL (3.5-5.1); Alkaline Phosphatase 96 U/L (38-126); Anion Gap 11 mmol/L (8-16); Aspartate Amino Transferase 24 U/L (14-36); Blood Urea Nitrogen 10 mg/dL (7-17); Calcium 9.2 mg/dL (8.4-10.2); Carbon Dioxide 22 mmol/L (22-30); Chloride 108 mmol/L (98-107); Estimated CRCL calculation 41 ml/min; Estimated Glomerular Filt Rate > 60; Glucose 104 mg/dL (65-110); Potassium 3.6 mmol/L (3.4-5.0); Sodium 141 mmol/L (137-145)
--- NOTE | 2022-05-30 23:29 | PC.NURSE ---
Called into pt's room by daughter. Pt reports feeling dizzy in head. Refuses at this time to get into gown or onto stretcher
--- NOTE | 2022-05-31 00:45 | PC.NURSE ---
Dr Villagran notified pt refuses po Meclizine. No new orders received
--- NOTE | 2022-05-31 00:46 | ED.GENADULT ---
HPI - General Adult General Chief complaint: Shortness of Breath/Dyspnea Stated complaint: SOB Time Seen by Provider: 05/30/22 23:38 History of Present Illness HPI narrative: This is an 86-year-old female status post colostomy, who presents the emergency department complaining of sinus congestion and intermittent vertigo. She states she woke this morning with sensations of difficulty breathing and sinus pressure. She is not taking anything for this today and presents with concerns for infection. She notes intermittent sensation of vertigo lasting seconds with resolution on its own. She denies other chest pain, shortness of breath, weakness, numbness or loss of consciousness Related Data Allergies Allergy/AdvReac Type Severity Reaction Status Date / Time metoprolol Allergy Unknown Dizziness Verified 07/22/21 20:16 Review of Systems Review of Systems: CONSTITUTIONAL: Denies fever, chills, or sweats. EYES: Denies visual changes, redness, or discharge. ENT: congestion Denies rhinorrhea, sore throat, or otalgia. CARDIOVASCULAR: Denies chest pain, palpitations, or edema. RESPIRATORY: Denies cough or dyspnea. GASTROINTESTINAL: Denies abdominal pain, nausea, vomiting, or diarrhea. GENITOURINARY: Denies dysuria or hematuria. SKIN: Denies rash or itching. MUSCULOSKELETAL: Denies back pain, joint pain, or myalgia. NEUROLOGIC: Intermittent vertigo denies headache, numbness, or weakness. PSYCHIATRIC: Denies anxiety or depression. [facility] Past Medical History Medical History Arthritis Chronic back pain Diverticulitis of intestine with abscess (03/2020) Gastroesophageal reflux disease Hypertension Not on medication as they cause her to feel dizzy. Memory impairment Transient ischemic attack (2003) Surgical History Surgical History History of cholecystectomy (10/30/11) History of hysterectomy History of tonsillectomy Family History Family History Father Patient's father is Family history of premature coronary heart disease, Onset Age: 62 Heart attack Mother Patient's mother is Colon cancer Other Cerebrovascular accident Diabetes mellitus Family history of arthritis Family history of gout Family history of heart disease in male family member before age 55 Family history of malignant neoplasm Hypertension Social History Social History Social History: Surrogate decision maker: Damian Perry( son) or Dayanna Doe (daughter). Code status: Full code. Smoking packs per day: 1 Smoking cigarettes per day: 20.0 Years smoked: 20 Smoking pack-years: 20.00 Smoking status: Former smoker Tobacco type: cigarettes Smoking end date: 09/17/88 Alcohol intake: never Substance use: never Additional living arrangements comments: . Lives in [place]. Additional occupation/education comments: Retired caterer. Gender identity (if verbalized by the patient): Female Spiritual care concerns: No Exam Narrative: GENERAL: Well-appearing, well-nourished, and in no acute distress. HEAD: Normocephalic, atraumatic. EYES: PERRLA and EOMI. ENT: Nares clear, no rhinorrhea or epistaxis. Mucous membranes moist. Oropharynx without tonsillar hypertrophy exudate or other lesions. Bilateral TM fullness with air-fluid level noted in the right without surrounding erythema, induration or purulence NECK: Supple. No adenopathy or masses. No carotid bruits or JVD CHEST: Clear to auscultation. No respiratory distress. No wheezes rales or rhonchi HEART: Regular rate and rhythm. No murmur heard. Normal peripheral pulses. ABDOMEN: Soft, nontender, nondistended, normal active bowel sounds. EXTREMITIES: Normal range of motion. No edema. SKIN: Warm, dry, no
[2022-05-31 01:27] LABS: Influenza A QL RT-PCR Negative (Negative); Influenza B QL RT-PCR Negative (Negative); SARS-CoV-2 RNA PCR Negative
[2022-05-31] MEDS: LORATADINE 5 MG TABLET PO (02:23)
== END 2022-05-31 02:24 | disposition home or self-care (01) ==
PROVIDERS: Emergency Provider Preventive Medicine Aerospace Medicine
DX: R09.81 Nasal congestion (principal); J06.9 Acute upper respiratory infection, unspecified; I10 Essential (primary) hypertension; K21.9 Gastro-esophageal reflux disease without esophagitis; M54.9 Dorsalgia, unspecified; G89.29 Other chronic pain; Z86.73 Personal history of transient ischemic attack (TIA), and cerebral infarction without residual deficits; Z90.49 Acquired absence of other specified parts of digestive tract; Z87.19 Personal history of other diseases of the digestive system; Z87.891 Personal history of nicotine dependence; Z20.822 Contact with and (suspected) exposure to COVID-19
CPT/HCPCS: 36415; 71046; 80053; 85025; 87502; 93005; 99283; A9270; C9803; U0003; U0005

== ENCOUNTER 2022-11-28 18:39 | Emergency (ER) | payer MEDICARE, SELFPAY ==
[2022-11-28 19:16] VITALS: BP 162/76; PULSE 88; RESP 16; TEMP 36.4; O2SAT 96
--- NOTE | 2022-11-28 19:54 | PC.NURSE ---
Family to intake desk stating patient has history of dementia and refused to notify RN about her colostomy bag. Per family, the colostomy bag has not had any output in the last two days which family is concerned is what is causing the patient's pain.
== END 2022-11-28 19:54 | disposition left against medical advice (07) ==
DX: M54.9 Dorsalgia, unspecified (principal)
CPT/HCPCS: 99199

== ENCOUNTER 2024-09-01 16:53 | Emergency (ER) | payer MEDICARE, SELFPAY ==
--- NOTE | ~2024-09-01 | CT_ITS ---
EXAMINATION: CT abdomen pelvis wo con DATE: 09/01/2024 17:38 INDICATION: Right flank pain. TECHNIQUE: Computed tomography (CT) of the abdomen and pelvis was performed without intravenous contr ast. Automated exposure control and iterative reconstruction technique were employed. The dose-length product was 533.59 mGy-cm. COMPARISON: CT abdomen and pelvis 07/22/2021 FINDINGS: The visualized portions of lung bases demonstrate mild atelectasis. There is chronic periph eral septal thickening. There is mild bronchiectasis bilaterally. No pleural effusion. There is left atrial enlargement of the heart. There is a small pericardial effusion. There is diffuse hepatic stea tosis. There are changes of cholecystectomy. There is a dropped gallstone at the posterior margin of the liver. The spleen, pancreas, adrenal glands, and right kidney are normal. There are cysts in left kidney measuring up to 3.8 cm. There is no urolithiasis. There is an end colostomy on the left with peristomal hernia containing nonobstructed small bowel. There are no dilated loops of bowel. The appe ndix is normal. There are no pathologically enlarged lymph nodes. There is no free intraperitoneal fl uid. There is severe lumbar spondylosis. IMPRESSION: 1. 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 2. Diffuse hepatic steatosis. 3. Chronic small pericardial effusion. Reviewed, dictated and finalized at location [facility]
--- NOTE | 2024-09-01 17:22 | ED_ITS ---
HPI - Back Pain/Injury General Chief Complaint: Back Pain/Injury <Jorge Luis Santoyo APRN - Last Filed: 09/01/24 17:24> Stated Complaint: BACK PAIN VIA [facility] <Jorge Luis Santoyo APRN - Last Filed: 09/01/24 17:24> Time Seen by Provider: 09/01/24 17:21 <Jorge Luis Santoyo APRN - Last Filed: 09/01/24 17:24> 88 y/o female presents with right flank pain that started this morning. patient states the pain is a pulsating pain. patient denies any urinary issues. patient has no hx of kidney issues. patient deneis any other symptoms PE: All WNL Right CVA tenderness <Jorge Luis Santoyo APRN - Last Filed: 09/01/24 17:24> 88 y/o female presents with right flank pain that started this morning. patient states the pain is chronic for her, but was a little worse than usual which prompted her to be seen. patient denies any urinary issues. patient has no hx of kidney issues. patient denies any other symptoms or injuries PE: All WNL Right CVA tenderness <Elidia Price PA-C - Last Filed: 09/01/24 21:03> Related Data Allergies/Adverse Reactions: Allergies Allergy/AdvReac Type Severity Reaction Status Date / Time metoprolol Allergy Unknown Dizziness Verified 09/01/24 16:54 <Jorge Luis Santoyo APRN - Last Filed: 09/01/24 17:24> Review of Systems 2 Review of Systems: CONSTITUTIONAL: Denies fever GASTROINTESTINAL: Denies abdominal pain, nausea, vomiting GENITOURINARY: Denies dysuria or hematuria. SKIN: Denies rash MUSCULOSKELETAL: Reports back pain, joint pain, and myalgia. NEUROLOGIC: Denies numbness, or weakness. <Elidia Price PA-C - Last Filed: 09/01/24 21:03> All systems reviewed & are unremarkable except as noted in HPI and below < Elidia Price PA-C - Last Filed: 09/01/24 21:03> [facility] Past Medical History Medical History: Medical History Arthritis Chronic back pain Diverticulitis of intestine with abscess (03/2020) Gastroesophageal reflux disease Hypertension Not on medication as they cause her to feel dizzy. Memory impairment Transient ischemic attack (2003) <Jorge Luis Santoyo APRN - Last Filed: 09/01/24 17:24> Surgical History Surgical History: Surgical History History of cholecystectomy (10/30/11) History of hysterectomy History of tonsillectomy <Jorge Luis Santoyo APRN - Last Filed: 09/01/24 17:24> Family History Family History: Family History Father Patient's father is Family history of premature coronary heart disease, Onset Age: 62 Heart attack Mother Patient's mother is Colon cancer Other Cerebrovascular accident Diabetes mellitus Family history of arthritis Family history of gout Family history of heart disease in male family member before age 55 Family history of malignant neoplasm Hypertension <Jorge Luis Santoyo APRN - Last Filed: 09/01/24 17:24> Social History Social History: Social History Social History: Surrogate decision maker: Damian Perry( son) or Dayanna Doe (daughter). Code status: Full code. Smoking packs per day: 1 Smoking cigarettes per day: 20.0 Years smoked: 20 Smoking pack-years: 20.00 Smoking status: Former smoker Tobacco type: cigarettes Smoking end date: 09/17/88 Alcohol intake: never Substance use: never Additional living arrangements comments: . Lives in [place]. Additional occupation/education comments: Retired caterer. Gender identity (if verbalized by the patient): Female Spiritual care concerns: No <Jorge Luis Santoyo APRN - Last Filed: 09/01/24 17:24> Exam 2 Narrative: GENERAL: Elderly, well-nourished, and in no acute distress. HEAD: Normocephalic, atraumatic. EYES: EOMI. CHEST: Clear to auscultation. No respiratory distress. No wheezes rales or rhonchi HEART: Regular rate and rhythm. No murmur heard. Normal peripheral pulses. ABDOMEN: Soft, nontender, nondistended, normal active bowel sounds. 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 No edema. SKIN: Warm, dry, no rash. NEURO: No focal deficits. Alert and oriented x3. PSYCH: Normal mood and affect <Elidia Price PA-C - Last Filed: 09/01/24 21:03> Course Course Emergency Course: patient and family updated on workup and agree with plan of care <Elidia Price PA-C - Last Filed: 09/01/24 21:03> Vital Signs Vital signs: Vital Signs Temperature 97.3 F L 09/01/24 17:25 Pulse Rate 80 09/01/24 17:25 Respiratory Rate 18 09/01/24 17:25 Blood Pressure 160/61 H 09/01/24 17:25 Pulse Oximetry 95 09/01/24 17:25 Oxygen Delivery Room Air 09/01/24 17:25 Temperature 97.3 F L 09/01/24 17:25 Pulse Rate 80 09/01/24 17:25 Respiratory Rate 18 09/01/24 17:25 Blood Pressure 160/61 H 09/01/24 17:25 Pulse Oximetry 95 09/01/24 17:25 Oxygen Delivery Room Air 09/01/24 17:25 <Jorge Luis Santoyo APRN - Last Filed: 09/01/24 17:24> Vital Signs Temperature 97.3 F L 09/01/24 17:25 Pulse Rate 80 09/01/24 17:25 Respiratory Rate 18 09/01/24 17:25 Blood Pressure 160/61 H 09/01/24 17:25 Pulse Oximetry 95 09/01/24 17:25 Oxygen Delivery Room Air 09/01/24 17:25 Temperature 97.3 F L 09/01/24 17:25 Pulse Rate 80 09/01/24 17:25 Respiratory Rate 18 09/01/24 17:25 Blood Pressure 160/61 H 09/01/24 17:25 Pulse Oximetry 95 09/01/24 17:25 Oxygen Delivery Room Air 09/01/24 17:25 <Elidia Price PA-C - Last Filed: 09/01/24 21:03> MDM - Back Pain/Injury MDM Narrative Medical decision making narrative: Patient presents to the emergency department for right flank pain. Reports history of chronic back pain. She is afebrile and nontoxic appearing. Her vitals are stable. Cbc without leukocytosis. Metabolic panel without concerning findings. Urine with possible evidence of infection. This will be sent for culture. 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 diffuse hepatic steatosis. Chronic small pericardial effusion. Patient and family updated on workup and agree with plan of care. She is to follow up with primary provider. She was given warnings to return to the ER <Elidia Price PA-C - Last Filed: 09/01/24 21:03> Differential Diagnosis Differential diagnosis: Likely thoracic back pain and other ( muscle strain, kidney stone, UTI) < Elidia Price PA-C - Last Filed: 09/01/24 21:03> Lab Data Attestation: I reviewed the patient's lab results. <Elidia Price PA-C - Last Filed: 09/01/24 21:03> Result diagrams: 09/01/24 18:01 09/01/24 18:01 <Jorge Luis Santoyo APRN - Last Filed: 09/01/24 17:24> Labs: Lab Results 09/01/24 09/01/24 Range/Units 18:01 19:04 WBC 9.4 (4.5-10.0) K/mm3 RBC 5.16 (4.2-5.4) M/mm3 Hgb 14.6 (12.0-15.0) g/dL Hct 45.0 (37.0-47.0) % MCV 87.2 (80-100) fl MCH 28.3 (26-34) pg MCHC 32.4 (32-36) g/dl RDW 13.3 (11.5-14.5) % Plt Count 232 (150-375) k/mm3 MPV 11.0 H (7.4-10.4) fl Immature Gran % (Auto) 1.2 H (0-0.5) % Neut % (Auto) 58.6 (45.5-73.1) % Lymph % (Auto) 29.6 (18.3-44.2) % [place] % (Auto) 7.6 (2.6-8.5) % Eos % (Auto) 1.7 (0-4.4) % Baso % (Auto) 1.3 H (0.2-1.2) % Lymph # (Auto) 2.79 (0.9-3.2) K/mm3 [place] # (Auto) 0.7 H (0.1-0.6) K/mm3 Eos # (Auto) 0.2 (0-0.3) K/mm3 Baso # (Auto) 0.1 (0.0-0.1) K/mm3 Abs Immat Gran (auto) 0.11 H (0.00-0.031) K/mm3 Absolute Neuts (auto) 5.5 (1.3-6.7) K/mm3 Absolute Nucleated RBC 0.000 (0.0-0.012) K/mm3 Nucleated RBC % 0.0 (0.0-0.2) % Sodium 138 (137-145) mmol/L Potassium 3.8 (3.4-5.0) mmol/L Chloride 109 H (98-107) mmol/L Carbon Dioxide 22 (22-30) mmol/L Anion Gap 7 (4-12) mmol/L BUN 14 (7-17) mg/dL Creatinine 0.80 (0.7-1.0) mg/dL Estim Creat Clear Calc 40 ml/min Estimated GFR > 60 (59 - ) Glucose 104 (65-110) mg/dL Calcium 8.6 (8.4-10.2) mg/dL Total Bilirubin 0.6 (0.2-1.3) mg/dL AST 25 (14-36) U/L ALT 18 (6-35) U/L Alkaline Phosphatase 120 (38-126) U/L Total Protein 8.0 (6.3-8.2) g/dL Albumin 4.0 (3.5-5.1) g/dL Lipase 77 (23-300) U/L Urine Color Yellow (Yellow) Urine Appearance Cloudy H (Clear) Urine pH 5.5 (5.0-9.0) Ur Specific [place] 1.008 (1.001-1.035) Urine Protein Negative (Negative) mg/dL Urine Glucose (UA) Negative (Negative) mg/dL Urine Ketones Negative (Negative) mg/dL Ur Blood (Man) Negative (Negative) Urine Nitrate Negative (Negative) Urine Bilirubin Negative (Negative) Urine Urobilinogen 0.2 (<2.0) mg/dL Leukocyte Esterase Rfl 1+ H (Negative) MARY/UL Urine RBC 0-2 (0-2) /hpf Urine WBC 11-20 H (0-3) /hpf Ur Squamous Epith Cells Occasional (Few) /hpf Uric Acid Crystals Present H (None) /hpf Urine Bacteria None seen /hpf Urine Casts 3-5 <Jorge Luis Santoyo, LICENSED EMBALMER - Last Filed: 09/01/24 17:24> Lab Results 09/01/24 09/01/24 Range/Units 18:01 19:04 WBC 9.4 (4.5-10.0) K/mm3 RBC 5.16 (4.2-5.4) M/mm3 Hgb 14.6 (12.0-15.0) g/dL Hct 45.0 (37.0-47.0) % MCV 87.2 (80-100) fl MCH 28.3 (26-34) pg MCHC 32.4 (32-36) g/dl RDW 13.3 (11.5-14.5) % Plt Count 232 (150-375) k/mm3 MPV 11.0 H (7.4-10.4) fl Immature Gran % (Auto) 1.2 H (0-0.5) % Neut % (Auto) 58.6 (45.5-73.1) % Lymph % (Auto) 29.6 (18.3-44.2) % [place] % (Auto) 7.6 (2.6-8.5) % Eos % (Auto) 1.7 (0-4.4) % Baso % (Auto) 1.3 H (0.2-1.2) % Lymph # (Auto) 2.79 (0.9-3.2) K/mm3 [place] # (Auto) 0.7 H (0.1-0.6) K/mm3 Eos # (Auto) 0.2 (0-0.3) K/mm3 Baso # (Auto) 0.1 (0.0-0.1) K/mm3 Abs Immat Gran (auto) 0.11 H (0.00-0.031) K/mm3 Absolute Neuts (auto) 5.5 (1.3-6.7) K/mm3 Absolute Nucleated RBC 0.000 (0.0-0.012) K/mm3 Nucleated RBC % 0.0 (0.0-0.2) % Sodium 138 (137-145) mmol/L Potassium 3.8 (3.4-5.0) mmol/L Chloride 109 H (98-107) mmol/L Carbon Dioxide 22 (22-30) mmol/L Anion Gap 7 (4-12) mmol/L BUN 14 (7-17) mg/dL Creatinine 0.80 (0.7-1.0) mg/dL Estim Creat Clear Calc 40 ml/min Estimated GFR > 60 (59 - ) Glucose 104 (65-110) mg/dL Calcium 8.6 (8.4-10.2) mg/dL Total Bilirubin 0.6 (0.2-1.3) mg/dL AST 25 (14-36) U/L ALT 18 (6-35) U/L Alkaline Phosphatase 120 (38-126) U/L Total Protein 8.0 (6.3-8.2) g/dL Albumin 4.0 (3.5-5.1) g/dL Lipase 77 (23-300) U/L Urine Color Yellow (Yellow) Urine Appearance Cloudy H (Clear) Urine pH 5.5 (5.0-9.0) Ur Specific [place] 1.008 (1.001-1.035) Urine Protein Negative (Negative) mg/dL Urine Glucose (UA) Negative (Negative) mg/dL Urine Ketones Negative (Negative) mg/dL Ur Blood (Man) Negative (Negative) Urine Nitrate Negative (Negative) Urine Bilirubin Negative (Negative) Urine Urobilinogen 0.2 (<2.0) mg/dL Leukocyte Esterase Rfl 1+ H (Negative) MARY/UL Urine RBC 0-2 (0-2) /hpf Urine WBC 11-20 H (0-3) /hpf Ur Squamous Epith Cells Occasional (Few) /hpf Uric Acid Crystals Present H (None) /hpf Urine Bacteria None seen /hpf Urine Casts 3-5 <Elidia Price PA-C - Last Filed: 09/01/24 21:03> Imaging Data Radiologist's impression: ITS Impressions Abdomen/Pelvis CT 09/01/24 17:47 IMPRESSION: 1. 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 2. Diffuse hepatic steatosis. 3. Chronic small pericardial effusion. <Elidia Price PA-C - Last Filed: 09/01/24 21:03> Critical Care Time Critical Care Time Critical Care Time: No <Elidia Price PA-C - Last Filed: 09/01/24 21:03> Discharge Plan Discharge Clinical Impression: Acute UTI Back pain Qualifiers: Back pain location: thoracic back pain Chronicity: chronic Back pain laterality: right Qualified Code(s): M54.6 - Pain in thoracic spine <DOMITILA Zaman Last Filed: 09/01/24 17:24> Patient Disposition: Home, Self-Care <Jorge Luis Santoyo APRN - Last Filed: 09/01/24 17:24> Condition: Stable <Jorge Luis Santoyo APRN - Last Filed: 09/01/24 17:24> Instructions: Back Pain (ED), Urinary Tract Infection in Older Adults (ED) <Jorge Luis Santoyo APRN - Last Filed: 09/01/24 17:24> Additional Instructions: Return to the ER if you experience fever, abdominal pain with nausea and vomiting, you are unable to keep down liquids or solids, blood in the urine or any other symptoms that are concerning to you Remain well hydrated. take oral antibiotics as prescribed Follow up with your primary care doctor <Jorge Luis Santoyo APRN - Last Filed: 09/01/24 17:24> Patient Language: Latvian <Jorge Luis Santoyo APRN - Last Filed: 09/01/24 17:24> Prescriptions: New cephalexin 500 mg tablet 500 mg PO Q12H 7 Days Qty: 14 0RF No Action acetaminophen [Mapap (acetaminophen)] 325 mg Tablet 650 mg PO Q4H PRN (Reason: Pain Rated 1-3) Qty: 10 0RF melatonin 3 mg Tablet 3 mg PO HS Qty: 10 0RF calcium carbonate 500 mg calcium (1,250 mg) Tablet,Chewable 200 mg PO Q6H PRN (Reason: Indigestion) Qty: 10 0RF acetaminophen [Tylenol Arthritis Pain] 650 mg tablet extended release 650 mg PO Q8H Qty: 10 0RF cefdinir 300 mg capsule 300 mg PO Q12H Qty: 20 0RF cetirizine 5 mg tablet 5 mg PO DAILY PRN (Reason: allergy symptoms) Qty: 20 0RF acetaminophen 500 mg capsule 500 mg PO Q8H PRN (Reason: fever or pain) Qty: 30 0RF <Jorge Luis Santoyo APRN - Last Filed: 09/01/24 17:24> Follow-up/Referrals: PHYSICIAN,RETURNS SUPERVISOR [Non-Staff] - <Jorge Luis Santoyo APRN - Last Filed: 09/01/24 17:24>
[2024-09-01 17:25] VITALS: BP 160/61; PULSE 80; RESP 18; TEMP 36.3; O2SAT 95
[2024-09-01 18:14] LABS: Basophils Absolute Auto 0.1 K/mm3 (0.0-0.1); Basophils Percent Auto 1.3 % (0.2-1.2); Eosinophils Absolute Auto 0.2 K/mm3 (0-0.3); Eosinophils Percent Auto 1.7 % (0-4.4); Hemoglobin 14.6 g/dL (12.0-15.0); Immature Granulocyte Absolute 0.11 K/mm3 (0.00-0.031); Immature Granulocyte Percent A 1.2 % (0-0.5); Lymphocytes Absolute Auto 2.79 K/mm3 (0.9-3.2); Lymphocytes Percent Auto 29.6 % (18.3-44.2); Mean Corpuscular HGB Conc 32.4 g/dl (32-36); Mean Corpuscular Hemoglobin 28.3 pg (26-34); Mean Corpuscular Volume 87.2 fl (80-100); Monocytes Absolute Auto 0.7 K/mm3 (0.1-0.6); Monocytes Percent Auto 7.6 % (2.6-8.5); Neutrophils Absolute Auto 5.5 K/mm3 (1.3-6.7); Neutrophils Percent Auto 58.6 % (45.5-73.1); Platelet Count Result 232 k/mm3 (150-375); Red Blood Count 5.16 M/mm3 (4.2-5.4); Red Cell Distribution Width 13.3 % (11.5-14.5); White Blood Count 9.4 K/mm3 (4.5-10.0)
[2024-09-01] MEDS: ACETAMINOPHEN 500 MG TABLET 1000 MG PO (18:18)
[2024-09-01 18:34] LABS: Alanine Aminotransferase 18 U/L (6-35); Alkaline Phosphatase 120 U/L (38-126); Anion Gap 7 mmol/L (4-12); Aspartate Amino Transferase 25 U/L (14-36); Bilirubin,Total 0.6 mg/dL (0.2-1.3); Blood Urea Nitrogen 14 mg/dL (7-17); Calcium 8.6 mg/dL (8.4-10.2); Carbon Dioxide 22 mmol/L (22-30); Chloride 109 mmol/L (98-107); Estimated CRCL calculation 40 ml/min; Estimated Glomerular Filt Rate > 60; Glucose 104 mg/dL (65-110); Lipase 77 U/L (23-300); Potassium 3.8 mmol/L (3.4-5.0); Sodium 138 mmol/L (137-145)
[2024-09-01 20:10] LABS: Add Urine Microscopic? YES; Appearance Urine Cloudy (Clear); Bacteria Urine None Seen /hpf; Bilirubin Urine Negative (Negative); Blood Urine Negative (Negative); Color Urine Yellow (Yellow); Glucose Urine UA Negative (Negative); Ketones Urine Negative (Negative); Leukocyte Esterase Ur 1+ LEU/UL (Negative); Nitrate Urine Negative (Negative); Protein Urine Negative (Negative); RBC Urine 0-2 /hpf (0-2); Specific Grav Ur 1.008 (1.001-1.035); Squamous Epithelial Cell Urine Occasional /hpf (Few); Uric Acid Crystals Urine Present /hpf; Urobilinogen Urine 0.2 mg/dL (<2.0); pH Urine 5.5 (5.0-9.0)
[2024-09-01 21:19] VITALS: BP 137/82; PULSE 72; RESP 18; O2SAT 97
== END 2024-09-01 21:20 | disposition home or self-care (01) ==
PROVIDERS: Nurse Practitioner Family; Emergency Provider Physician Assistant
DX: N39.0 Urinary tract infection, site not specified (principal); M54.6 Pain in thoracic spine; I10 Essential (primary) hypertension; M19.90 Unspecified osteoarthritis, unspecified site; K21.9 Gastro-esophageal reflux disease without esophagitis; Z86.73 Personal history of transient ischemic attack (TIA), and cerebral infarction without residual deficits; Z87.891 Personal history of nicotine dependence; Z90.49 Acquired absence of other specified parts of digestive tract; Z90.710 Acquired absence of both cervix and uterus; I31.39 Other pericardial effusion (noninflammatory); K76.0 Fatty (change of) liver, not elsewhere classified; Z93.3 Colostomy status; K43.5 Parastomal hernia without obstruction or gangrene
CPT/HCPCS: 36415; 74176; 80053; 81001; 83690; 85025; 87086; 99284; A9270